=== PATIENT | male | born 1935 | race Caucasian/White ===

== ENCOUNTER 2020-04-07 12:07 | Inpatient (IN) ==
[2020-04-07] MEDS ORDERED: ACETAMINOPHEN 65 ML IV ONE (12:19)
--- NOTE | 2020-04-07 12:27 | Emergency Department Note ---
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 Prior to arrival the patient developed chest discomfort and had shortness of breath and diaphoresis. The patient states that he does not have chest pain. He did not receive anything in the ambulance according to EMS. EMS stated that he seemed agitated and uncooperative in the ambulance. History and physical exam is limited as the patient is not cooperative and seems confused. He does answer some questions but ignores others. [facility] Home Medications Home Medications Medication Instructions Recorded Confirmed Type amlodipine 5 mg PO DAILY 04/07/20 04/07/20 History atorvastatin 40 mg PO HS 04/07/20 04/07/20 History fluoxetine [Prozac] 10 mg PO DAILY 04/07/20 04/07/20 History fmzqtwiiind-zdjrqjhnw-kxifexze 1 inh INHALATION DAILY 04/07/20 04/07/20 History [Trelegy Ellipta] hydrochlorothiazide 12.5 mg PO DAILY 04/07/20 04/07/20 History ipratropium-albuterol [Combivent 1 puff INHALATION Q4H PRN 04/07/20 04/07/20 History Respimat] losartan 50 mg PO DAILY 04/07/20 04/07/20 History hn-va-VR-vit J-ossyx-ylpm-zeax 1 tab PO DAILY 04/07/20 04/07/20 History [Ocuvite Eye Plus Multi] pantoprazole 40 mg PO DAILY 04/07/20 04/07/20 History quetiapine [Seroquel] 12.5 mg PO TID 04/07/20 04/07/20 History warfarin 1.5 mg PO DAILY 04/07/20 04/07/20 History Allergies Allergy/AdvReac Type Severity Reaction Status Date / Time Iodinated Contrast Media Allergy Intermediate RASH Verified 04/07/20 12:44 Past Med/Surg History Medical History Atrial fibrillation COPD (chronic obstructive pulmonary disease) Current use of fdc anticoagulation CVA (cerebral vascular accident) History of sick sinus syndrome HLD (hyperlipidemia) HTN (hypertension) Macular degeneration Surgical History History of cardiac pacemaker History of hernia repair Hx of cataract extraction Family History Sister COPD (chronic obstructive pulmonary disease) Other Coronary heart disease Social History (Updated 04/07/20 @ 15:54 by Anna Marie Blanco PA-C) Smoking Status: Unknown if ever smoked Hx Alcohol Use: No Hx Substance Use: No Preferred Language: Kittitian Communication Ability: Impaired Communication Ability Comment: d/t stroke [employer] Required: No Beliefs That Will Affect Care: None marital status: Current Living Situation: Spouse and Rehab Current Living Situation Comment: pt came from [facility] Assistive Devices: None Review of Systems See HPI for pertinent positives & negatives. Unobtainable due to cognitive status Physical Exam Vital Signs Vital Signs - 24 hr 04/07/20 12:13 04/07/20 12:17 04/07/20 12:30 Temperature Temperature Source Pulse Rate 98 H 80 Pulse Rate from SpO2 Sensor 81 Respiratory Rate 20 22 22 Respiratory Effort / Characteristics Spontaneous Short of Breath Blood Pressure 156/76 H Blood Pressure Mean 94 Pulse Oximetry 96 100 Oxygen Delivery Method Room Air Nasal Cannula Oxygen Flow Rate 2 Sepsis Recent Fever Within 48 Hours Sepsis New/Unexplained Change in Mental Status Sepsis Action Taken by Nursing 04/07/20 12:37 04/07/20 12:45 04/07/20 12:47 Temperature 38 C H Temperature Source Rectal Pulse Rate 88 75 Pulse Rate from SpO2 Sensor 75 Respiratory Rate 20 24 22 Respiratory Effort / Characteristics Spontaneous Short of Breath Blood Pressure 156/76 H Blood Pressure Mean 102 Pulse Oximetry 96 100 100 Oxygen Delivery Method Room Air Nasal Cannula Nasal Cannula Oxygen Flow Rate 2 2 Sepsis Recent Fever Within 48 Hours Yes Sepsis New/Unexplained Change in Mental Status No Sepsis Action Taken by Nursing Physician Notified 04/07/20 12:58 04/07/20 13:01 04/07/20 13:54 Temperature Temperature Source Pulse Rate 80 78 81 Pulse Rate from SpO2 Sensor 81 78 83 Respiratory Rate 22 21 21 Respiratory Effort / Characteristics Blood Pressure 103/65 138/64 121/75 Blood Pressure Mean 66 91 80 Pulse Oximetry 99 99 96 Oxygen Delivery Method Nasal Cannula Nasal Cannula Nasal Cannula Oxygen Flow Rate 2 2 2 Sepsis Recent Fever Within 48 Hours Sepsis New/Unexplained Change in Mental Status Sepsis Action Taken by Nursing 04/07/20 14:00 04/07/20 14:01 04/07/20 14:15 Temperature 36.7 C Temperature Source Oral Pulse Rate 69 62 Pulse Rate from SpO2 Sensor 70 66 Respiratory Rate 23 18 Respiratory Effort / Characteristics Non-Labored Spontaneous Blood Pressure 135/72 Blood Pressure Mean 100 Pulse Oximetry 100 96 Oxygen Delivery Method Nasal Cannula Nasal Cannula Oxygen Flow Rate 2 2 Sepsis Recent Fever Within 48 Hours Sepsis New/Unexplained Change in Mental Status Sepsis Action Taken by Nursing 04/07/20 14:30 04/07/20 14:42 04/07/20 15:00 Temperature Temperature Source Pulse Rate 64 Pulse Rate from SpO2 Sensor 62 Respiratory Rate 23 Respiratory Effort / Characteristics Non-Labored Blood Pressure 124/69 127/65 Blood Pressure Mean 77 92 Pulse Oximetry 95 94 Oxygen Delivery Method Room Air Room Air Oxygen Flow Rate Sepsis Recent Fever Within 48 Hours Sepsis New/Unexplained Change in Mental Status Sepsis Action Taken by Nursing Constitutional: Vital signs reviewed. Eyes: Pupils are equal round reactive to light. Conjunctiva are noninjected. ENT: Pharynx is clear without erythema or exudate. Mucous membranes are moist. Neck supple without meningeal signs. Respiratory: Clear to auscultation bilaterally. Breath sounds are equal bilaterally. Cardiovascular: Regular rate and rhythm. No rubs or gallops. GI: Soft, nondistended and nontender. Bowel sounds are present. Musculoskeletal: No peripheral edema. No lower extremity tenderness. Integumentary: No cyanosis. or jaundice. Very warm to touch. Neurological: The patient is awake and alert. Answers some questions but ignores others. Moves all extremities. Psychiatric: Unable to assess. Course Administered Medications Discontinued Medications Acetaminophen (Ofirmev) 65 mls @ 200 mls/hr IV NOW ONE; Protocol Stop: 04/07/20 12:38 Last Infusion: 04/07/20 13:20 Dose: 0 mls/hr Documented by: [id number] Admin: 04/07/20 12:55 Dose: 200 mls/hr Documented by: [id number] Medical Decision Making Differential Diagnosis Sepsis, UTI, pneumonia, bacteremia, ICH, COVID-19, ACS Medical Records Attestation: I reviewed the patient's medical records. I did perform a limited focused review of portions of the patient's old chart on the electronic medical record. The patient has had no recent pertinent visits to this hospital. Home Medications Current Medication List: was personally reviewed by me Laboratory Data Attestation: I reviewed the patient's lab results. Result diagrams: 04/07/20 12:50 04/07/20 12:50 Lab Results 04/07/20 04/07/20 04/07/20 Range/Units 12:30 12:30 12:30 WBC (4.8-10.8) K/uL RBC (4.7-6.1) M/uL Hgb (14.0-18.0) g/dL Hct (42-52) % MCV (80-100) fL MCH (25-34) pg MCHC (32-36) g/dL RDW Std Deviation (36.4-46.3) fL RDW Coeff of Kylah (11.5-14.5) % Plt Count (130-400) K/uL MPV (7.4-10.4) fL Immature Gran % (Auto) % Neut % (Auto) % Lymph % (Auto) % [place] % (Auto) % Eos % (Auto) % Baso % (Auto) % Neut # (Auto) (1.4-6.5) K/uL Lymph # (Auto) (1.2-3.4) K/uL [place] # (Auto) (0.11-0.59) K/uL Eos # (Auto) (0-0.5) K/uL Baso # (Auto) (0-0.2) K/uL Immature Gran # (Auto) (0.00-0.02) K/uL PT (9.0-12.0) Seconds INR (0.9-1.1) APTT (21.0-31.0) Seconds PTT Ratio Sodium (136-145) mmol/L Potassium (3.5-5.1) mmol/L Chloride (98-107) mmol/L Carbon Dioxide (21-32) mmol/L Anion Gap (3-11) BUN (7-18) mg/dl Creatinine (0.6-1.4) mg/dl Est Cr Clr Drug Dosing Est GFR ( Amer) Est GFR (Non-Af Amer) BUN/Creatinine Ratio (10-20) Glucose (70-99) mg/dl Lactate (0.4-2.0) mmol/L Calcium (8.5-10.1) mg/dl Magnesium (1.8-2.4) mg/dl Total Bilirubin (0.2-1) mg/dl AST (15-37) U/L ALT (12-78) U/L Alkaline Phosphatase (45-117) U/L Troponin I (0-0.045) ng/ml Total Protein (6.4-8.2) gm/dl Albumin (3.4-5.0) gm/dl Globulin (2.5-4.0) gm/dl Albumin/Globulin Ratio (0.9-2) COVID-19 Eval Order Covid19 Done at [facility] COVID-19 PCR NEGATIVE (Negative) Influenza Type A (PCR) Neg for Influ A (Neg) Influenza Type B (PCR) Neg for Influ B (Neg) 04/07/20 04/07/20 04/07/20 Range/Units 12:50 12:50 12:50 WBC 13.97 H (4.8-10.8) K/uL RBC 4.08 L (4.7-6.1) M/uL Hgb 13.3 L (14.0-18.0) g/dL Hct 38.4 L (42-52) % MCV 94.1 (80-100) fL MCH 32.6 (25-34) pg MCHC 34.6 (32-36) g/dL RDW Std Deviation 44.7 (36.4-46.3) fL RDW Coeff of Kylah 12.9 (11.5-14.5) % Plt Count 239 (130-400) K/uL MPV 10.2 (7.4-10.4) fL Immature Gran % (Auto) 0.2 % Neut % (Auto) 91.6 % Lymph % (Auto) 3.0 % [place] % (Auto) 5.0 % Eos % (Auto) 0.1 % Baso % (Auto) 0.1 % Neut # (Auto) 12.79 H (1.4-6.5) K/uL Lymph # (Auto) 0.42 L (1.2-3.4) K/uL [place] # (Auto) 0.70 H (0.11-0.59) K/uL Eos # (Auto) 0.02 (0-0.5) K/uL Baso # (Auto) 0.01 (0-0.2) K/uL Immature Gran # (Auto) 0.03 H (0.00-0.02) K/uL PT 44.5 H (9.0-12.0) Seconds INR 4.6 H (0.9-1.1) APTT 39.9 H (21.0-31.0) Seconds PTT Ratio 1.4 Sodium 140 (136-145) mmol/L Potassium 3.5 (3.5-5.1) mmol/L Chloride 104 (98-107) mmol/L Carbon Dioxide 30 (21-32) mmol/L Anion Gap 6.0 (3-11) BUN 16 (7-18) mg/dl Creatinine 1.30 (0.6-1.4) mg/dl Est Cr Clr Drug Dosing Not Reportable Est GFR ( Amer) 58.1 Est GFR (Non-Af Amer) 50.1 BUN/Creatinine Ratio 12.1 (10-20) Glucose 114 H (70-99) mg/dl Lactate (0.4-2.0) mmol/L Calcium 9.0 (8.5-10.1) mg/dl Magnesium (1.8-2.4) mg/dl Total Bilirubin 1.9 H (0.2-1) mg/dl AST 515 H (15-37) U/L ALT 276 H (12-78) U/L Alkaline Phosphatase 207 H (45-117) U/L Troponin I 0.029 (0-0.045) ng/ml Total Protein 7.1 (6.4-8.2) gm/dl Albumin 3.6 (3.4-5.0) gm/dl Globulin 3.5 (2.5-4.0) gm/dl Albumin/Globulin Ratio 1.0 (0.9-2) COVID-19 Eval Order COVID-19 PCR (Negative) Influenza Type A (PCR) (Neg) Influenza Type B (PCR) (Neg) 04/07/20 04/07/20 Range/Units 12:50 12:50 WBC (4.8-10.8) K/uL RBC (4.7-6.1) M/uL Hgb (14.0-18.0) g/dL Hct (42-52) % MCV (80-100) fL MCH (25-34) pg MCHC (32-36) g/dL RDW Std Deviation (36.4-46.3) fL RDW Coeff of Kylah (11.5-14.5) % Plt Count (130-400) K/uL MPV (7.4-10.4) fL Immature Gran % (Auto) % Neut % (Auto) % Lymph % (Auto) % [place] % (Auto) % Eos % (Auto) % Baso % (Auto) % Neut # (Auto) (1.4-6.5) K/uL Lymph # (Auto) (1.2-3.4) K/uL [place] # (Auto) (0.11-0.59) K/uL Eos # (Auto) (0-0.5) K/uL Baso # (Auto) (0-0.2) K/uL Immature Gran # (Auto) (0.00-0.02) K/uL PT (9.0-12.0) Seconds INR (0.9-1.1) APTT (21.0-31.0) Seconds PTT Ratio Sodium (136-145) mmol/L Potassium (3.5-5.1) mmol/L Chloride (98-107) mmol/L Carbon Dioxide (21-32) mmol/L Anion Gap (3-11) BUN (7-18) mg/dl Creatinine (0.6-1.4) mg/dl Est Cr Clr Drug Dosing Est GFR ( Amer) Est GFR (Non-Af Amer) BUN/Creatinine Ratio (10-20) Glucose (70-99) mg/dl Lactate 1.7 (0.4-2.0) mmol/L Calcium (8.5-10.1) mg/dl Magnesium 1.9 (1.8-2.4) mg/dl Total Bilirubin (0.2-1) mg/dl AST (15-37) U/L ALT (12-78) U/L Alkaline Phosphatase (45-117) U/L Troponin I (0-0.045) ng/ml Total Protein (6.4-8.2) gm/dl Albumin (3.4-5.0) gm/dl Globulin (2.5-4.0) gm/dl Albumin/Globulin Ratio (0.9-2) COVID-19 Eval Order COVID-19 PCR (Negative) Influenza Type A (PCR) (Neg) Influenza Type B (PCR) (Neg) Imaging Data Radiologist's Impression: CT chest wo con CT DOSE: 1245.21 mGycm CLINICAL HISTORY: 84 years-old Male with fever AMS. Acute fever with altered mental status TECHNIQUE: Multiaxial CT images of the chest were performed without contrast. A dose lowering technique was utilized adhering to the principles of ALARA. COMPARISON: CT abdomen and pelvis of same day FINDINGS: Study is limited secondary to upper extremity positioning. Moderate cardiomegaly with left subclavian pacer. Extensive coronary artery calcifications. Fusiform dilation of the ascending thoracic aorta measures 4.0 x 4.0 cm. Moderate calcified plaque of the aorta. Heterogeneous thyroid with left thyroid lobe calcification. No adenopathy. No pneumothorax, pleural effusion, overt pulmonary edema. No airspace consolidation typical for pneumonia. Mild linear subsegmental consolidative opacities of the right middle lobe and lingula suggest atelectasis/scarring. 4 mm solid nodule of the right lower lobe, image 244 series 4. Central airways are patent. No acute process of the imaged upper abdomen. Degenerative changes of the spine and shoulders. No acute fracture or suspicious bone lesion. IMPRESSION: 1. Mildly motion degraded exam without acute intrathoracic abnormality. 2. Cardiomegaly without pulmonary edema. 3. 4 mm solid nodule of the right lower lobe. Please refer to below summary of Fleischner criteria recommendations for follow- up of incidental CT nodules ([place], Guidelines for management of small pulmonary nodules detected on CT scans: A statement from the Fleischner Society, Radiology 237: [phone].) SOLID NODULES Solitary nodule size: <6 mm * Low risk patients: no follow-up needed * high risk patients: optional CT at 12 months Note: newly detected indeterminate nodule in persons 35 years of age or older. * Low risk patients: minimal or absent history of smoking and/or other known risk factors * high risk patients: history of smoking or of other known risk factors (e.g. first degree relative with lung cancer, or exposure to asbestos, radon, uranium) * if a nodule up to 8 mm is partly solid or is ground glass further follow-up is required after 24 months to exclude possible slow growing adenocarcinoma (LUISA) ACT 112: Negative or not required by law. Electronically signed by: Christofer Mccarthy M.D. 04/07/2020 1:48 PM Dictated: 04/07/20 1341 Transcribed: 04/07/[address] OF THE ABDOMEN AND PELVIS WITHOUT CONTRAST CLINICAL HISTORY: Fever. Altered mental status. COMPARISON STUDY: No previous studies for comparison. TECHNIQUE: Axial images of the abdomen and pelvis were obtained without IV contrast. Images were reviewed in the axial, sagittal, and coronal planes. Automated exposure control was utilized for the study. A dose lowering technique was utilized adhering to the principles of ALARA. FINDINGS: Lung bases are unremarkable. This exam is mildly compromised by motion artifact. No pneumatosis, free air or portal venous gas is present. Moderate cardiomegaly is noted. Pacer lead is partially imaged. Unenhanced images of liver, spleen, adrenal glands and pancreas are unremarkable. There is no hyd ronephrosis. There is moderate right renal cortical thinning. Gallbladder is distended. No adjacent infiltration is noted. There is no biliary or pancreatic ductal dilatation. There is no evidence for a bowel obstruction. The appendix is normal. Note is made of colonic diverticulosis without evidence for acute diverticulitis. There is no fluid collection is suggest an abscess. No suspicious osseous lesions are noted. There is an old L4 compression fracture. There may be a cystic lesion within the posterior cortex of the midpole of the right kidney, suboptimally assessed on this exam. IMPRESSION: 1. Exam moderately compromised by motion artifact and lack of contrast. 2. Distended gallbladder without pericholecystic infiltration. If suspicion for acute cholecystitis, a a right upper quadrant ultrasound could be obtained. 3. No bowel obstruction. 4. Colonic diverticulosis without evidence for acute diverticulitis. ACT 112: Negative or not required by law. Electronically signed by: Andre Joseph M.D. 04/07/2020 2:08 PM Dictated: 04/07/20 1356 Transcribed: 04/07/[address] DOSE: 1683.20 mGycm HISTORY: Altered mental status. TECHNIQUE: Multiaxial CT images of the head were performed without the use of intravenous contrast. Automated exposure control was utilized for this study. A dose lowering technique was utilized adhering to the principles of ALARA. Comparison: None. Findings: The paranasal sinuses and mastoid air cells are clear. The calvarium and skull base are intact. There is no mass, hematoma, midline shift, acute infarct. White matter hypodensity is nonspecific but suggestive of microvascular ischemic change. The ventricles and sulci demonstrate mild age-related involutional changes. Old small left occipital lobe infarct. There is an old punctate lacunar infarcts seen within the right basal ganglia. Mild motion artifact. Impression: Mild motion artifact. No definite acute intracranial abnormality. ACT 112: Negative or not required by law. Electronically signed by: Adalberto Wolf M.D. 04/07/2020 1:40 PM Dictated: 04/07/20 133 Transcribed: 04/07/20 133 ECG Data Attestation: I personally reviewed and interpreted this ECG as follows: Indication: + chest pain Rate (beats per minute): 84 Rhythm: + atrial fibrillation (Occasional pacer spikes) ECG Intervals/blocks: + IVCD (Occasional pacer spikes) ECG ST segments: + ST elevation (Lateral/inferior) and + T-wave inversions (Inferior) ECG Findings: + PVCs Comparison ECG Date: no prior available ([facility]) Additional Comments: Repeat twelve-lead EKG performed at 1253 interpreted by myself shows atrial fibrillation at a rate of 74 bpm. He has left axis deviation and persistent ST depressions laterally although they are not as pronounced as they were on the previous EKG. He also has continued ST depressions and T wave inversions inferiorly. Blood Pressure Blood Pressure Findings: Elevated blood pressure Blood Pressure Disposition: further management by hospitalist MDM Narrative I did evaluate the patient as noted above. I did obtain history from EMS as well as the patient. Patient's history seems unreliable as he seems very confused. The patient felt very warm to touch and so I did order a rectal temperature which was 38. I did obtain further history from [facility] She states the patient has global aphasia and so cannot understand what people are saying to him. She states that he never said that he had chest pain. He was clutching at his chest and his left arm and said help. She states there are no reported cases of COVID-19 at [facility]. I later spoke to Dr. Draper who came to the ED. She stated that the patient said yes when asked if he had chest pain earlier. IV access was established. I did place an order for continuous cardiac monitoring. The monitor showed atrial fibrillation with a rate of 82. I did order and personally review the patient's 12-lead EKG as described above. He has A. fib with T wave inversions inferiorly as well as ST depressions laterally. No old EKGs available for comparison other than [facility] which shows similar findings. The patient was placed in respiratory isolation. COVID-19 and influenza testing was obtained. Blood cultures were ordered. I did treat him with IV Tylenol. I did order a urine analysis. He would not allow us to catheterize him and he has not been able to give us a sample. I did order and review the patient's blood work as noted in the electronic medical record. His white blood cell count is elevated. Troponin is negative. Electrolytes are unremarkable. LFTs are abnormal. INR is supratherapeutic at 4.6. I did order a CT of the head, chest, abdomen pelvis. I did review the images myself as well as the radiology report as described above. There is no intracranial hemorrhage. He does have a distended gallbladder but otherwise no intrathoracic or abdominal process. I did repeat a twelve-lead EKG which per my interpretation shows similar finding as his previous EKG. Through the [employer] system the behavioral health case manager was able to get an old EKG but this showed a paced rhythm and so comparison was not helpful. The patient's COVID and influenza testing were negative and he was taken off of isolation. I did order an ultrasound of the gallbladder but the patient refused to have it. I spoke to his daughter over the telephone and discussed his plan of care with her. She stated that the patient refuses any surgery and so if he had a problem with his gallbladder he would not allow surgery anyway. She also noted that he is DNR. I did discuss the case with the hospitalist and behavioral health case manager. They will start him on antibiotics once they get his urine. Impression & Plan Acute chest pain, Supratherapeutic INR, Abnormal ECG, Fever, Abnormal LFTs Discharge Plan Visit Data Chief Complaint: Fever Stated Complaint: Chest pain/ Afib ED Provider: Bryan Gavin Discharge Problem: Acute chest pain, Supratherapeutic INR, Abnormal ECG, Fever, Abnormal LFTs Patient Disposition: Admitted As Inpatient Discharge Instructions Interventions: ED Discharge Assessment Last Done: 04/07/20 16:20
[2020-04-07 13:13] LABS: Basophils # (auto) 0.01 K/uL (0-0.2); Basophils % (auto) 0.1 %; Eosinophils # (auto) 0.02 K/uL (0-0.5); Eosinophils % (auto) 0.1 %; Hematocrit (blood only) 38.4 % (42-52); Hemoglobin 13.3 g/dL (14.0-18.0); Immature Granulocytes # (auto) 0.03 K/uL (0.00-0.02); Immature Granulocytes % (auto) 0.2 %; Lymphocytes # (auto) 0.42 K/uL (1.2-3.4); Mean Corpuscular Hemoglobin 32.6 pg (25-34); Mean Corpuscular Hgb Conc 34.6 g/dL (32-36); Mean Corpuscular Volume 94.1 fL (80-100); Mean Platelet Volume 10.2 fL (7.4-10.4); Neutrophils # (auto) 12.79 K/uL (1.4-6.5); Neutrophils % (auto) 91.6 %; Platelet Count 239 K/uL (130-400); RDW Coefficient of Variation 12.9 % (11.5-14.5); RDW Standard Deviation 44.7 fL (36.4-46.3); Red Blood Count 4.08 M/uL (4.7-6.1); White Blood Count 13.97 K/uL (4.8-10.8)
[2020-04-07 13:31] LABS: Alanine Aminotransferase 276 U/L (12-78); Albumin Level 3.6 gm/dl (3.4-5.0); Aspartate Aminotransferase 515 U/L (15-37); BUN Creatinine Ratio 12.1 (10-20); Blood Urea Nitrogen 16 mg/dl (7-18); Carbon Dioxide 30 mmol/L (21-32); Chloride 104 mmol/L (98-107); Est GFR (African American) 58.1; Est GFR (Non-African American) 50.1; Glucose 114 mg/dl (70-99); INR 4.6 (0.9-1.1); Partial Thromboplastin Ratio 1.4; Partial Thromboplastin Time 39.9 Seconds (21.0-31.0); Potassium 3.5 mmol/L (3.5-5.1); Prothrombin Time 44.5 Seconds (9.0-12.0); Sodium 140 mmol/L (136-145)
[2020-04-07 13:35] LABS: Alkaline Phosphatase 207 U/L (45-117); Bilirubin,Total 1.9 mg/dl (0.2-1); Globulin 3.5 gm/dl (2.5-4.0); Total Protein 7.1 gm/dl (6.4-8.2); Troponin I 0.029 ng/ml (0-0.045)
--- NOTE | 2020-04-07 13:42 | CT Scan Report ---
HEAD CT NONCONTRAST CT DOSE: 1683.20 mGycm HISTORY: Altered mental status. TECHNIQUE: Multiaxial CT images of the head were performed without the use of intravenous contrast. A utomated exposure control was utilized for this study. A dose lowering technique was utilized adheri ng to the principles of ALARA. Comparison: None. Findings: The paranasal sinuses and mastoid air cells are clear. The calvarium and skull base are int act. There is no mass, hematoma, midline shift, acute infarct. White matter hypodensity is nonspecifi c but suggestive of microvascular ischemic change. The ventricles and sulci demonstrate mild age-rela rich involutional changes. Old small left occipital lobe infarct. There is an old punctate lacunar inf arcts seen within the right basal ganglia. Mild motion artifact. Impression: Mild motion artifact. No definite acute intracranial abnormality. ACT 112: Negative or not required by law. Electronically signed by: Adalberto Wolf M.D. 04/07/2020 1:40 PM
--- NOTE | 2020-04-07 13:49 | CT Scan Report ---
CT chest wo con CT DOSE: 1245.21 mGycm CLINICAL HISTORY: 84 years-old Male with fever AMS. Acute fever with altered mental status TECHNIQUE: Multiaxial CT images of the chest were performed without contrast. A dose lowering techni que was utilized adhering to the principles of ALARA. COMPARISON: CT abdomen and pelvis of same day FINDINGS: Study is limited secondary to upper extremity positioning. Moderate cardiomegaly with left subclavian pacer. Extensive coronary artery calcifications. Fusiform dilation of the ascending thoracic aorta measures 4.0 x 4.0 cm. Moderate calcified plaque of the aort a. Heterogeneous thyroid with left thyroid lobe calcification. No adenopathy. No pneumothorax, pleura l effusion, overt pulmonary edema. No airspace consolidation typical for pneumonia. Mild linear subse gmental consolidative opacities of the right middle lobe and lingula suggest atelectasis/scarring. 4 mm solid nodule of the right lower lobe, image 244 series 4. Central airways are patent. No acute process of the imaged upper abdomen. Degenerative changes of the spine and shoulders. No acu te fracture or suspicious bone lesion. IMPRESSION: 1. Mildly motion degraded exam without acute intrathoracic abnormality. 2. Cardiomegaly without pulmonary edema. 3. 4 mm solid nodule of the right lower lobe. Please refer to below summary of Fleischner criteria recommendations for follow-up of incidental CT n odules ([place], Guidelines for management of small pulmonary nodules detected on CT scans: A sta tement from the Fleischner Society, Radiology 237: [id number].) SOLID NODULES Solitary nodule size: <6 mm * Low risk patients: no follow-up needed * high risk patients: optional CT at 12 months Note: newly detected indeterminate nodule in persons 35 years of age or older. * Low risk patients: minimal or absent history of smoking and/or other known risk factors * high risk patients: history of smoking or of other known risk factors (e.g. first degree relative with lung cancer, or exposure to asbestos, radon, uranium) * if a nodule up to 8 mm is partly solid or is ground glass further follow-up is required after 24 m onths to exclude possible slow growing adenocarcinoma (LUISA) ACT 112: Negative or not required by law. Electronically signed by: Christofer Mccarthy M.D. 04/07/2020 1:48 PM
[2020-04-07 13:50] LABS: Influenza A virus by PCR Neg for Influ A (Neg); Influenza B virus by PCR Neg for Influ B (Neg)
--- NOTE | 2020-04-07 14:09 | CT Scan Report ---
CT OF THE ABDOMEN AND PELVIS WITHOUT CONTRAST CLINICAL HISTORY: Fever. Altered mental status. COMPARISON STUDY: No previous studies for comparison. TECHNIQUE: Axial images of the abdomen and pelvis were obtained without IV contrast. Images were revi ewed in the axial, sagittal, and coronal planes. Automated exposure control was utilized for the alexandr dy. A dose lowering technique was utilized adhering to the principles of ALARA. FINDINGS: Lung bases are unremarkable. This exam is mildly compromised by motion artifact. No pneumat osis, free air or portal venous gas is present. Moderate cardiomegaly is noted. Pacer lead is partial ly imaged. Unenhanced images of liver, spleen, adrenal glands and pancreas are unremarkable. There is no hydronephrosis. There is moderate right renal cortical thinning. Gallbladder is distended. No adj acent infiltration is noted. There is no biliary or pancreatic ductal dilatation. There is no evidenc e for a bowel obstruction. The appendix is normal. Note is made of colonic diverticulosis without brandie dence for acute diverticulitis. There is no fluid collection is suggest an abscess. No suspicious oss eous lesions are noted. There is an old L4 compression fracture. There may be a cystic lesion within the posterior cortex of the midpole of the right kidney, suboptimally assessed on this exam. IMPRESSION: 1. Exam moderately compromised by motion artifact and lack of contrast. 2. Distended gallbladder without pericholecystic infiltration. If suspicion for acute cholecystitis, a a right upper quadrant ultrasound could be obtained. 3. No bowel obstruction. 4. Colonic diverticulosis without evidence for acute diverticulitis. ACT 112: Negative or not required by law. Electronically signed by: Andre Joseph M.D. 04/07/2020 2:08 PM
--- NOTE | 2020-04-07 15:47 | History & Physical Report ---
Date of Service April 07, 2020 Assessment & Plan (1) Chest pain: This is an 84-year-old male who has significant past medical history of chronic atrial fibrillation anticoagulated on warfarin, HTN, HLD, sick sinus syndrome status post pacer, COPD, severe aortic stenosis, history of CVA 1998 and a recent suffered a acute left parietal and occipital CVA on 03/29/2020 with resultant expressive and receptive aphasia. He presented to ED secondary to acute onset chest pain, shortness of breath and diaphoresis that occurred at 11 AM. In ED initial cardiac work-up revealed negative troponin, EKG with ST and T wave depressions in leads V6 and III which appear unchanged to prior EKG on 03/29. Patient did have leukocytosis, elevated LFTs and a CT abdomen pelvis concerning for acute cholecystitis. He was febrile by rectal temp at 38 Celsius. Admit to telemetry Cardiac work-up to rule out ACS Cycle troponins x2, repeat EKG His INR is currently supra therapeutic, will hold Coumadin Last echocardiogram 03/30 which revealed EF 65%, severe aortic stenosis, moderate mitral regurg, severe right atrial enlargement, left atrial enlargement Consult general surgery due to elevated LFTs with concern for cholecystitis on imaging. I spoke with daughter extensively who states patient does not want to go any further surgical intervention and would like limited intervention as possible. Start empiric antibiotic with IV Zosyn Obtain right upper quadrant ultrasound -patient initially refused, will reattempt when on floor Gentle IVF 75 cc/h -patient with severe clear liquid diet for now until seen by surg npo after midnight (2) Elevated LFTs: hold statin obstructive pattern, likely in setting of acute libby vs choledocholithiasis tx as above (3) Acute renal insufficiency: Baseline creatinine 1.1 BUN/creatinine 16 and 1.30 today, estimated GFR 50.1 Gentle IV hydration 75 cc/h -caution in setting of aortic stenosis (4) Supratherapeutic INR: hold warfarin INR in a.m. no s/sx of bleeding (5) CVA (cerebral vascular accident): Patient with CVA in the 90s and of most recent suffered a left parietal and occipital CVA 03/29/2020 with resultant expressive and receptive aphasia He is on warfarin and high intensity statin therapy Hold statin in setting of elevated LFTs Hold warfarin due to supratherapeutic INR Consult speech therapy -Per encompass patient on regular diet (6) Atrial fibrillation: Rate controlled with pacemaker INR supratherapeutic hold warfarin Repeat INR in a.m. (7) Cardiac pacemaker in situ: Sick sinus syndrome status post pacemaker Pacemaker interrogation ordered (8) HTN (hypertension): Blood pressure stable Continue amlodipine and losartan Hold HCTZ due to mild elevation of renal function (9) COPD (chronic obstructive pulmonary disease): No acute exacerbation Continue Trelegy (10) Lung nodule < 6cm on CT: 4mm solid nodule RLL Solitary nodule size: <6 mm * Low risk patients: no follow-up needed * high risk patients: optional CT at 12 months defer to PCP for further imaging if needed (11) DVT prophylaxis: Warfarin, hold in setting of supratherapeutic INR INR in a.m. Disposition: Admit to telemetry, likely transition back to [facility] rehab when stable Follow-up: PCP Dr. Genao, upon discharge Patient was seen and examined in collaboration with Dr. Marcos, please see addendum History of Present Illness Chief Complaint: Chest pain CONSULTING ANALYST. 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 He presents to our ED from acute rehab secondary to chest pain, shortness of breath and diaphoresis. History limited from patient secondary to a aphasia. Most history obtained from [facility] and a daughter. Patient was in therapy this morning around 11 AM when he became diaphoretic, was complaining of chest discomfort, and put a fist up to his chest. Staff became alarmed and they placed him on oxygen. They did do an EKG and alerted EMS. When he got ED he was hemodynamically stable. Initial work-up revealed negative troponin, EKG reading atrial fibrillation with heart rate in the 70s with ST depression and T wave inversions in leads III and V6. His Coumadin influenza was negative. He did have leukocytosis of 13.97k, elevated INR 4.6 and elevated LFTs with total bili 1.9, AST 515, ALT 276 and alk phos 207. Due to aphasia and poor historian patient underwent multiple CT s cans. CT abdomen pelvis revealed distention of gallbladder with no pericholecystic fluid but concerning for cholecystitis. Head CT revealed no acute abnormality. Poor prior strokes were noted. Chest CT revealed cardiomegaly without pulmonary edema and a 4 mm solid nodule of the right lower lobe. Patient is recommended for admission for ACS work-up as well as concern for cholecystitis. Allergies Allergy/AdvReac Type Severity Reaction Status Date / Time Iodinated Contrast Media Allergy Intermediate RASH Verified 04/07/20 12:44 Home Medications Home Medications Medication Instructions Recorded Confirmed Type amlodipine 5 mg PO DAILY 04/07/20 04/07/20 History atorvastatin 40 mg PO HS 04/07/20 04/07/20 History fluoxetine [Prozac] 10 mg PO DAILY 04/07/20 04/07/20 History byysztjtwjt-gbwxddhxw-gwjhkzmw 1 inh INHALATION DAILY 04/07/20 04/07/20 History [Trelegy Ellipta] hydrochlorothiazide 12.5 mg PO DAILY 04/07/20 04/07/20 History ipratropium-albuterol [Combivent 1 puff INHALATION Q4H PRN 04/07/20 04/07/20 History Respimat] losartan 50 mg PO DAILY 04/07/20 04/07/20 History il-yr-SU-vit K-dcusy-wutj-zeax 1 tab PO DAILY 04/07/20 04/07/20 History [Ocuvite Eye Plus Multi] pantoprazole 40 mg PO DAILY 04/07/20 04/07/20 History quetiapine [Seroquel] 12.5 mg PO TID 04/07/20 04/07/20 History warfarin 1.5 mg PO DAILY 04/07/20 04/07/20 History Past Med/Surg History Medical History Atrial fibrillation COPD (chronic obstructive pulmonary disease) Current use of lobsterman anticoagulation CVA (cerebral vascular accident) History of sick sinus syndrome HLD (hyperlipidemia) HTN (hypertension) Macular degeneration Surgical History History of cardiac pacemaker History of hernia repair Hx of cataract extraction Family History Sister COPD (chronic obstructive pulmonary disease) Other Coronary heart disease Social History (Updated 04/07/20 @ 15:54 by Anna Marie Blanco PA-C) Smoking Status: Unknown if ever smoked Hx Alcohol Use: No Hx Substance Use: No Preferred Language: Nepalese Communication Ability: Impaired Communication Ability Comment: d/t stroke [employer] Required: No Beliefs That Will Affect Care: None marital status: Current Living Situation: Spouse and Rehab Current Living Situation Comment: pt came from [facility] Assistive Devices: None Review of Systems Review of Systems: Unobtainable due to cognitive status Physical Exam Physical Exam: Constitutional: Elderly, male, lying in bed, alert with expre ssive and receptive aphasia, WD/WN, vitals as above, NAD, Head: Normocephalic, Atraumatic Eyes: PERRL, conjunctivae normal, anicteric sclerae ENMT: external ear and nose normal, oropharynx normal Neck: trachea midline, no thyromegaly normal visual inspection Respiratory: normal respiratory effort, lungs clear to auscultation, no wheeze, rales, rhonchi. Normal insp/exp effort, no accessory muscle use Cardiovascular: Regular rate, irregular rhythm, 2/6 NIGEL noted RUSB, no murmur, no edema Vessels: no JVD or carotid bruit Chest: normal inspection of chest, no pain to palpation Abdomen: normal bowel sounds, soft, nontender, no hepatosplenomegaly Musculoskeletal: no cyanosis or clubbing, extremities motor strength 5/5 Skin: no rashes, warm and dry normal turgor Neurologic: + Expressive and receptive aphasia, CN's II-XI intact bilaterally and moves all extremities Psychiatric: Alert to self only, euthymic affect Lymphatic: no cervical or axillary lymphadenopathy : deferred Results & Data Results & Data ([facility]) Vital Signs (Past 12 Hours) Vital Signs Temp Pulse Resp BP Pulse Ox 04/07/20 15:00 64 23 127/65 94 04/07/20 14:42 95 04/07/20 14:30 124/69 04/07/20 14:15 62 18 96 04/07/20 14:01 36.7 C 04/07/20 14:00 69 23 135/72 100 04/07/20 13:54 81 21 121/75 96 04/07/20 13:01 78 21 138/64 99 04/07/20 12:58 80 22 103/65 99 04/07/20 12:47 22 100 04/07/20 12:45 75 24 100 04/07/20 12:37 38 C H 88 20 156/76 H 96 04/07/20 12:30 80 22 100 04/07/20 12:17 22 04/07/20 12:13 98 H 20 156/76 H 96 Laboratory Results Short CBC 04/07/20 04/07/20 Range/Units 12:50 12:50 WBC 13.97 H (4.8-10.8) K/uL Hgb 13.3 L (14.0-18.0) g/dL Hct 38.4 L (42-52) % Plt Count 239 (130-400) K/uL Troponin I 0.029 (0-0.045) ng/ml BMP 04/07/20 12:50 Sodium 140 Potassium 3.5 Chloride 104 Carbon Dioxide 30 BUN 16 Creatinine 1.30 Glucose 114 H Calcium 9.0 Cardiac Enzymes 04/07/20 Range/Units 12:50 Troponin I 0.029 (0-0.045) ng/ml Liver Function 04/07/20 Range/Units 12:50 Total Bilirubin 1.9 H (0.2-1) mg/dl AST 515 H (15-37) U/L ALT 276 H (12-78) U/L Alkaline Phosphatase 207 H (45-117) U/L Albumin 3.6 (3.4-5.0) gm/dl Diagnostic Findings Chest CT: IMPRESSION: 1. Mildly motion degraded exam without acute intrathoracic abnormality. 2. Cardiomegaly without pulmonary edema. 3. 4 mm solid nodule of the right lower lobe. Abd/Pelvis CT: IMPRESSION: 1. Exam moderately compromised by motion artifact and lack of contrast. 2. Distended gallbladder without pericholecystic infiltration. If suspicion for acute cholecystitis, a a right upper quadrant ultrasound could be obtained. 3. No bowel obstruction. 4. Colonic diverticulosis without evidence for acute diverticulitis. Head CT: Impression: Mild motion artifact. No definite acute intracranial abnormality. Medications Administered Discontinued Medications Acetaminophen (Ofirmev) 65 mls @ 200 mls/hr IV NOW ONE; Protocol Stop: 04/07/20 12:38 Last Infusion: 04/07/20 13:20 Dose: 0 mls/hr Documented by: [id number] Admin: 04/07/20 12:55 Dose: 200 mls/hr Documented by: [id number] ECG Rate (beats per minute): 74 Rhythm: atrial fibrillation Findings: + nonspecific-ST abn Code Status & VTE Plan Code Status DNR/DNI pt wants limited intervention done VTE Prophylaxis Plan VTE Prophylaxis will be ordered: No Supervising Physician Co-Signing Physician Notes Patient is an 84-year-old male with multiple comorbidities presents with history of chest pain, shortness of breath and diaphoresis. Patient is a very poor historian. Currently refuses any medical treatment. Currently denies any chest pain, shortness of breath, abd pain during my encounter. Please review HPI for complete details of presentation. He was noted to be febrile, had leukocytosis 13.9 K, INR elevated at 4.6. Transaminitis noted. CT abdomen is concerning for acute cholecystitis. Initial troponin is negative. EKG showed atrial fibrillation with ST-T wave changes. On exam patient is elderly, no apparent distress, normocephalic atraumatic, mostly aphasic, lungs are clear to auscultation, irregularly irregular rhythm,+ systolic murmur, no pedal edema, abdomen soft, no guarding or rigidity, denies tenderness, alert, awake, difficult to perform complete neurological exam, grossly moves all extremities. Patient is admitted for management of chest pain rule out ACS, possible acute cholecystitis, coagulopathy secondary to Coumadin. Patient refused ultrasound. Empirically started on IV fluids, IV antibiotics but currently patient refusing care. Consulted surgery for input. Will hold Coumadin as INR supratherapeutic. Monitor LFTs. Pacemaker interrogation requested. Urine analysis is currently pending. Will consult palliative care to address goals of care. I personally reviewed the record. Patient is interviewed and examined at bedside. Patient's care is coordinated with Anna Marie Blanco PA-C. Please refer to the documentation above for details of patient's presentation and for discussion of other issues.
[2020-04-07] MEDS ORDERED: ALUMINUM/MAGNESIUM SUSP 30 ML UDC PO PRN (16:35)
[2020-04-07] MEDS ORDERED: IPRATROPIUM BROMIDE/ALBUTEROL respimat INH INH PRN (16:35)
[2020-04-07] MEDS ORDERED: MoRPHine SULFATE 2 MG/ML CARP IV PRN (16:35)
[2020-04-07] MEDS ORDERED: ACETAMINOPHEN 325 MG TAB PO PRN (16:35)
[2020-04-07] MEDS ORDERED: ONDANSETRON INJ 2 MG/ML 2 ML VIAL IV PRN (16:35)
[2020-04-07] MEDS ORDERED: POLYETHYLENE (MIRALAX) 17 GM PACK PO PRN (16:35)
[2020-04-07] MEDS ORDERED: PIPERACILL/TAZOBAC CONSULT ACTIVE PRN (16:35)
[2020-04-07] MEDS ORDERED: MAGNESIUM HYDROXIDE SUSP 30 ML UDC PO PRN (16:35)
[2020-04-07] MEDS ORDERED: SODIUM CHLORIDE 0.9% 1000ML 1,000 ML IV SCH (17:15)
[2020-04-07] MEDS ORDERED: PIPERACILLIN/TAZOBACTAM 3.375 GM in DEXTROSE 5% 100 ML IV ONE (17:30)
[2020-04-07] MEDS ORDERED: Ipratropium HFA Inhaler (Combivent Respimat P&T Subs) INH PRN (19:20)
[2020-04-07] MEDS ORDERED: Albuterol HFA 8 GM Inhaler (Combivent Respimat P&T Subs) INH PRN (19:20)
--- NOTE | 2020-04-07 20:37 | Surgery Consultation ---
Date of Consultation April 07, 2020 Assessment & Plan (1) Acute chest pain: (2) Abnormal LFTs: pt is a 84 year-old male who was admitted to hospital for acute chest pain, with elevate LFT, IMP: Cholecystitis, CBD stone?, cholangitis? Plan, recommend to do U/S study on gallbladder to R/O gallstone, IV antibiotic, repeat labs in am, will F/U,consult GI . Present on Admission?: Yes Supervising Physician Co-Signing Physician Notes Patient is an 84-year-old male with multiple comorbidities presents with history of chest pain, shortness of breath and diaphoresis. Patient is a very poor historian. Currently refuses any medical treatment. Currently denies any chest pain, shortness of breath, abd pain during my encounter. Please review HPI for complete details of presentation. He was noted to be febrile, had leukocytosis 13.9 K, INR elevated at 4.6. Transaminitis noted. CT abdomen is concerning for acute cholecystitis. Initial troponin is negative. EKG showed atrial fibrillation with ST-T wave changes. On exam patient is elderly, no apparent distress, normocephalic atraumatic, mostly aphasic, lungs are clear to auscultation, irregularly irregular rhythm,+ systolic murmur, no pedal edema, abdomen soft, no guarding or rigidity, denies tenderness, alert, awake, difficult to perform complete neurological exam, grossly moves all extremities. Patient is admitted for management of chest pain rule out ACS, possible acute cholecystitis, coagulopathy secondary to Coumadin. Patient refused ultrasound. Empirically started on IV fluids, IV antibiotics but currently patient refusing care. Consulted surgery for input. Will hold Coumadin as INR supratherapeutic. Monitor LFTs. Pacemaker interrogation requested. Urine analysis is currently pending. Will consult palliative care to address goals of care. I personally reviewed the record. Patient is interviewed and examined at bedside. Patient's care is coordinated with Anna Marie Blanco PA-C. Please refer to the documentation above for details of patient's presentation and for discussion of other issues. History of Present Illness Attending Physician: Richard Marcos MD Chief Complaint: Chest pain DRESS DESIGNER. 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 He presents to our ED from acute rehab secondary to chest pain, shortness of breath and diaphoresis. History limited from patient secondary to a aphasia. Most history obtained from [facility] and a daughter. Patient was in therapy this morning around 11 AM when he became diaphoretic, was complaining of chest discomfort, and put a fist up to his chest. Staff became alarmed and they placed him on oxygen. They did do an EKG and alerted EMS. When he got ED he was hemodynamically stable. Initial work-up revealed negative troponin, EKG reading atrial fibrillation with heart rate in the 70s with ST depression and T wave inversions in leads III and V6. His Coumadin influenza was negative. He did have leukocytosis of 13.97k, elevated INR 4.6 and elevated LFTs with total bili 1.9, AST 515, ALT 276 and alk phos 207. Due to aphasia and poor historian patient underwent multiple CT scans. CT abdomen pelvis revealed distention of gallbladder with no pericholecystic fluid but concerning for cholecystitis. Head CT revealed no acute abnormality. Poor prior strokes were noted. Chest CT revealed cardiomegaly without pulmonary edema and a 4 mm solid nodule of the right lower lobe. Patient is recommended for admission for ACS work-up as well as concern for cholecystitis. I ( Erna Paniagua MD ) got a call for consult cholecystitis, I reviewed pt;s H/P, Lab and CT scan with pt, pt has no abdominal pain now. Allergies Allergy/AdvReac Type Severity Reaction Status Date / Time Iodinated Contrast Media Allergy Intermediate RASH Verified 04/07/20 12:44 Home Medications Home Medications Medication Instructions Recorded Confirmed Type amlodipine 5 mg PO DAILY 04/07/20 04/07/20 History atorvastatin 40 mg PO HS 04/07/20 04/07/20 History fluoxetine [Prozac] 10 mg PO DAILY 04/07/20 04/07/20 History nmendoyqybr-rhlusniwf-juwtlwrn 1 inh INHALATION DAILY 04/07/20 04/07/20 History [Trelegy Ellipta] hydrochlorothiazide 12.5 mg PO DAILY 04/07/20 04/07/20 History ipratropium-albuterol [Combivent 1 puff INHALATION Q4H PRN 04/07/20 04/07/20 History Respimat] losartan 50 mg PO DAILY 04/07/20 04/07/20 History bf-up-AR-vit E-zpzvb-gdga-zeax 1 tab PO DAILY 04/07/20 04/07/20 History [Ocuvite Eye Plus Multi] pantoprazole 40 mg PO DAILY 04/07/20 04/07/20 History quetiapine [Seroquel] 12.5 mg PO TID 04/07/20 04/07/20 History warfarin 1.5 mg PO DAILY 04/07/20 04/07/20 History Past Med/Surg History Medical History Atrial fibrillation COPD (chronic obstructive pulmonary disease) Current use of skilled nursing anticoagulation CVA (cerebral vascular accident) History of sick sinus syndrome HLD (hyperlipidemia) HTN (hypertension) Macular degeneration Surgical History History of cardiac pacemaker History of hernia repair Hx of cataract extraction Family History Sister COPD (chronic obstructive pulmonary disease) Other Coronary heart disease Social History (Updated 04/07/20 @ 15:54 by Anna Marie Blanco PA-C) Smoking Status: Unknown if ever smoked Hx Alcohol Use: No Hx Substance Use: No Preferred Language: Swazi Communication Ability: Impaired Communication Ability Comment: d/t stroke Aircraft Shipping Checker Required: No Beliefs That Will Affect Care: None marital status: Current Living Situation: Spouse and Rehab Current Living Situation Comment: pt came from [facility] Assistive Devices: None Review of Systems Review of Systems: Unobtainable due to cognitive status Allergies Allergy/AdvReac Type Severity Reaction Status Date / Time Iodinated Contrast Media Allergy Intermediate RASH Verified 04/07/20 12:44 Home Medications Home Medications Medication Instructions Recorded Confirmed Type amlodipine 5 mg PO DAILY 04/07/20 04/07/20 History atorvastatin 40 mg PO HS 04/07/20 04/07/20 History fluoxetine [Prozac] 10 mg PO DAILY 04/07/20 04/07/20 History kxgncbyyofb-lnnfclqoz-cusflvqv 1 inh INHALATION DAILY 04/07/20 04/07/20 History [Trelegy Ellipta] hydrochlorothiazide 12.5 mg PO DAILY 04/07/20 04/07/20 History ipratropium-albuterol [Combivent 1 puff INHALATION Q4H PRN 04/07/20 04/07/20 History Respimat] losartan 50 mg PO DAILY 04/07/20 04/07/20 History wm-yr-EN-vit L-mvvqd-hizb-zeax 1 tab PO DAILY 04/07/20 04/07/20 History [Ocuvite Eye Plus Multi] pantoprazole 40 mg PO DAILY 04/07/20 04/07/20 History quetiapine [Seroquel] 12.5 mg PO TID 04/07/20 04/07/20 History warfarin 1.5 mg PO DAILY 04/07/20 04/07/20 History Patient History Medical History Atrial fibrillation COPD (chronic obstructive pulmonary disease) Current use of skilled nursing anticoagulation CVA (cerebral vascular accident) History of sick sinus syndrome HLD (hyperlipidemia) HTN (hypertension) Macular degeneration Surgical History History of cardiac pacemaker History of hernia repair Hx of cataract extraction Family History Sister COPD (chronic obstructive pulmonary disease) Other Coronary heart disease Social History (Updated 04/07/20 @ 15:54 by Anna Marie Blanco PA-C) Smoking Status: Unknown if ever smoked Hx Alcohol Use: No Hx Substance Use: No Preferred Language: Swazi Communication Ability: Impaired Communication Ability Comment: d/t stroke Aircraft Shipping Checker Required: No Beliefs That Will Affect Care: None marital status: Current Living Situation: Spouse and Rehab Current Living Situation Comment: pt came from [facility] Assistive Devices: None Review of Systems Constitutional: as per Subjective / HPI Eyes: as per Subjective / HPI Ear, Nose, Mouth, Throat: as per Subjective / HPI Respiratory: as per Subjective / HPI COPD Cardiovascular: as per Subjective / HPI Additional Comments: A-Fib, , chest pain, HTN, pacemaker Gastrointestinal: as per Subjective / HPI Genitourinary: + as per Subjective / HPI Musculoskeletal: as per Subjective / HPI Integumentary: as per Subjective / HPI Neurologic: as per Subjective / HPI CVA 03/2020 Psychiatric: as per Subjective / HPI Endocrine: as per Subjective / HPI Hematologic / Lymphatic: as per Subjective / HPI Allergy / Immunological: as per Subjective / HPI Physical Exam Constitutional: WD/WN, vitals as above well developed and well nourished Eyes: PERRL, conjunctivae normal, anicteric sclerae ENMT: external ear and nose normal, oropharynx normal Neck: trachea midline, no thyromegaly Respiratory: normal respiratory effort, lungs clear to auscultation Cardiovascular: A-fib Gastrointestinal (Abdomen): normal bowel sounds, soft, nontender, no hepatosplenomegaly soft, NT, ND, BS + Musculoskeletal: Head/Neck/Chest: neck supple Extremities: + limited ROM of extremities Skin: no rashes, warm and dry Neurologic: patellar DTR's 2+ bilat, sensation intact Psychiatric: Orientation: alert and oriented x 3 Results & Data ([facility]) Vital Signs (Past 12 Hours) Vital Signs Temp Pulse Pulse Resp BP BP Pulse Ox 04/07/20 19:54 36.9 C 62 18 148/77 H 97 04/07/20 16:54 72 04/07/20 16:00 68 24 134/73 97 04/07/20 15:30 68 24 108/70 96 04/07/20 15:00 64 23 127/65 94 04/07/20 14:42 95 04/07/20 14:30 124/69 04/07/20 14:15 62 18 96 04/07/20 14:01 36.7 C 04/07/20 14:00 69 23 135/72 100 04/07/20 13:54 81 21 121/75 96 04/07/20 13:01 78 21 138/64 99 04/07/20 12:58 80 22 103/65 99 04/07/20 12:47 22 100 04/07/20 12:45 75 24 100 04/07/20 12:37 38 C H 88 20 156/76 H 96 04/07/20 12:30 80 22 100 04/07/20 12:17 22 04/07/20 12:13 98 H 20 156/76 H 96 Laboratory Results Abnormal lab results 04/07/20 04/07/20 04/07/20 Range/Units 12:50 12:50 12:50 WBC 13.97 H (4.8-10.8) K/uL RBC 4.08 L (4.7-6.1) M/uL Hgb 13.3 L (14.0-18.0) g/dL Hct 38.4 L (42-52) % Neut # (Auto) 12.79 H (1.4-6.5) K/uL Lymph # (Auto) 0.42 L (1.2-3.4) K/uL [place] # (Auto) 0.70 H (0.11-0.59) K/uL Immature Gran # (Auto) 0.03 H (0.00-0.02) K/uL PT 44.5 H (9.0-12.0) Seconds INR 4.6 H (0.9-1.1) APTT 39.9 H (21.0-31.0) Seconds Glucose 114 H (70-99) mg/dl Total Bilirubin 1.9 H (0.2-1) mg/dl AST 515 H (15-37) U/L ALT 276 H (12-78) U/L Alkaline Phosphatase 207 H (45-117) U/L Diagnostic Findings CT OF THE ABDOMEN AND PELVIS WITHOUT CONTRAST CLINICAL HISTORY: Fever. Altered mental status. COMPARISON STUDY: No previous studies for comparison. TECHNIQUE: Axial images of the abdomen and pelvis were obtained without IV contrast. Images were reviewed in the axial, sagittal, and coronal planes. Automated exposure control was utilized for the study. A dose lowering technique was utilized adhering to the principles of ALARA. FINDINGS: Lung bases are unremarkable. This exam is mildly compromised by motion artifact. No pneumatosis, free air or portal venous gas is present. Moderate cardiomegaly is noted. Pacer lead is partially imaged. Unenhanced images of liver, spleen, adrenal glands and pancreas are unremarkable. There is no hydronephrosis. There is moderate right renal cortical thinning. Gallbladder is distended. No adjacent infiltration is noted. There is no biliary or pancreatic ductal dilatation. There is no evidence for a bowel obstruction. The appendix is normal. Note is made of colonic diverticulosis without evidence for acute diverticulitis. There is no fluid collection is suggest an abscess. No suspicious osseous lesions are noted. There is an old L4 compression fracture. There may be a cystic lesion within the posterior cortex of the midpole of the right kidney, suboptimally assessed on this exam. IMPRESSION: 1. Exam moderately compromised by motion artifact and lack of contrast. 2. Distended gallbladder without pericholecystic infiltration. If suspicion for acute cholecystitis, a a right upper quadrant ultrasound could be obtained. 3. No bowel obstruction. 4. Colonic diverticulosis without evidence for acute diverticulitis. ACT 112: Negative or not required by law.
[2020-04-07] MEDS: QUETIAPINE FUMARATE 25 MG TABLET PO SCH (22:34)
[2020-04-08] MEDS: PIPERACILLIN/TAZOBACTAM 3.375 GM in DEXTROSE 5% 100 ML IV SCH ×2 (00:53→08:37)
[2020-04-08 07:32] LABS: Basophils # (auto) 0.01 K/uL (0-0.2); Basophils % (auto) 0.1 %; Eosinophils # (auto) 0.04 K/uL (0-0.5); Eosinophils % (auto) 0.4 %; Hematocrit (blood only) 36.2 % (42-52); Hemoglobin 12.3 g/dL (14.0-18.0); Immature Granulocytes # (auto) 0.03 K/uL (0.00-0.02); Immature Granulocytes % (auto) 0.3 %; Lymphocytes # (auto) 0.89 K/uL (1.2-3.4); Lymphocytes % (auto) 8.6 %; Mean Corpuscular Hemoglobin 32.1 pg (25-34); Mean Corpuscular Volume 94.5 fL (80-100); Mean Platelet Volume 10.2 fL (7.4-10.4); Monocytes % (auto) 7.7 %; Neutrophils # (auto) 8.59 K/uL (1.4-6.5); Neutrophils % (auto) 82.9 %; Platelet Count 207 K/uL (130-400); RDW Coefficient of Variation 13.2 % (11.5-14.5); RDW Standard Deviation 45.2 fL (36.4-46.3); Red Blood Count 3.83 M/uL (4.7-6.1); White Blood Count 10.36 K/uL (4.8-10.8)
[2020-04-08 07:55] LABS: INR 4.1 (0.9-1.1); Prothrombin Time 40.5 Seconds (9.0-12.0)
[2020-04-08 08:15] LABS: Albumin Level 2.9 gm/dl (3.4-5.0); BUN Creatinine Ratio 12.9 (10-20); Calcium 8.7 mg/dl (8.5-10.1); Est GFR (Non-African American) 49.2; Magnesium 1.9 mg/dl (1.8-2.4); Potassium 3.6 mmol/L (3.5-5.1)
[2020-04-08 08:33] LABS: Albumin Globulin Ratio 0.9 (0.9-2); Bilirubin,Total 1.2 mg/dl (0.2-1); Globulin 3.3 gm/dl (2.5-4.0); Total Protein 6.2 gm/dl (6.4-8.2); Troponin I 0.711 ng/ml (0-0.045)
[2020-04-08] MEDS: FLUOXETINE HCL 10 MG CAP PO SCH (08:37)
[2020-04-08] MEDS: LOSARTAN POTASSIUM 50 MG TAB PO SCH (08:37)
[2020-04-08] MEDS: PANTOprazole 40 MG TAB PO SCH (08:37)
[2020-04-08] MEDS: AMLODIPINE BESYLATE 5 MG TAB PO SCH (08:38)
[2020-04-08] MEDS: MULTIVITAMIN TAB PO SCH (08:41)
[2020-04-08] MEDS: QUETIAPINE FUMARATE 25 MG TABLET PO SCH ×3 (08:41→20:11)
[2020-04-08] MEDS: UMECLIDINIUM/VILANTEROL 62.5/25MCG 7 PUFFS/INHALER INH SCH (08:49)
[2020-04-08] MEDS: FLUTICASONE FUROATE 100MCG 14 PUFFS/INHALER INH SCH (08:49)
--- NOTE | 2020-04-08 08:51 | Gastrointestinal Consultation ---
Date of Consultation April 08, 2020 Assessment & Plan (1) Elevated LFTs: Patient admitted with a history of chest discomfort unable to give much historical information due to comorbid issues which include an expressive and receptive aphasia. Patient did have a noncontrast CT which is somewhat limited in the type of study. I would recommend further evaluation with either a right upper quadrant ultrasound or perhaps MRCP pending on the patient's type of pacemaker. This would give us some insight as to whether the liver test elevation is related to gallstones or choledocholithiasis. Alternative explanations could include congestive hepatopathy given some patient's prior history of aortic stenosis. Recommendations Right upper quadrant ultrasound or MRCP today If stone seen would recommend reversal of anticoagulation today and ERCP tomorrow if patient willing History of Present Illness Reason for Consultation: elevated ast/alt Requesting Physician: Dr. 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 He presented to ED secondary to acute onset chest pain, shortness of breath and diaphoresis that occurred yesterday. Unfortunately due to the patient's prior stroke history he is unable to give much insight into his present status. Most of my history is obtained from reviewing the chart and inpatient medical records. Allergies Allergy/AdvReac Type Severity Reaction Status Date / Time Iodinated Contrast Media Allergy Intermediate RASH Verified 04/07/20 12:44 Home Medications Home Medications Medication Instructions Recorded Confirmed Type amlodipine 5 mg PO DAILY 04/07/20 04/07/20 History atorvastatin 40 mg PO HS 04/07/20 04/07/20 History fluoxetine [Prozac] 10 mg PO DAILY 04/07/20 04/07/20 History sawwlkaqgha-byydhwpem-knojrrye 1 inh INHALATION DAILY 04/07/20 04/07/20 History [Trelegy Ellipta] hydrochlorothiazide 12.5 mg PO DAILY 04/07/20 04/07/20 History ipratropium-albuterol [Combivent 1 puff INHALATION Q4H PRN 04/07/20 04/07/20 History Respimat] losartan 50 mg PO DAILY 04/07/20 04/07/20 History bz-ly-WX-vit J-mkntl-absp-zeax 1 tab PO DAILY 04/07/20 04/07/20 History [Ocuvite Eye Plus Multi] pantoprazole 40 mg PO DAILY 04/07/20 04/07/20 History quetiapine [Seroquel] 12.5 mg PO TID 04/07/20 04/07/20 History warfarin 1.5 mg PO DAILY 04/07/20 04/07/20 History Patient History Medical History Atrial fibrillation COPD (chronic obstructive pulmonary disease) Current use of fdc anticoagulation CVA (cerebral vascular accident) History of sick sinus syndrome HLD (hyperlipidemia) HTN (hypertension) Macular degeneration Surgical History History of cardiac pacemaker History of hernia repair Hx of cataract extraction Family History Sister COPD (chronic obstructive pulmonary disease) Other Coronary heart disease Social History (Updated 04/07/20 @ 15:54 by Anna Marie Blanco PA-C) Smoking Status: Unknown if ever smoked Hx Alcohol Use: No Hx Substance Use: No Preferred Language: [place] Communication Ability: Impaired Communication Ability Comment: d/t stroke Dope Firer Required: No Beliefs That Will Affect Care: None marital status: Current Living Situation: Spouse and Rehab Current Living Situation Comment: pt came from [facility] Assistive Devices: None Review of Systems Review of Systems: Unobtainable due to cognitive status Physical Exam Constitutional: well developed and well nourished; no acute distress and not ill appearing Eyes: PERRL, conjunctivae normal, anicteric sclerae Neck: trachea midline, no thyromegaly Respiratory: normal respiratory effort; no respiratory distress and no labored breathing Cardiovascular: Heart Sounds: + murmur Extremities: no edema Gastrointestinal (Abdomen): Inspection/Auscultation: abdomen normal to inspection; abdomen not distended and no abdominal edema Percussion/Palpation: abdomen soft; abdomen nontender, no guarding and abdomen not rigid Results & Data ([facility]) Vital Signs (Past 12 Hours) Vital Signs Temp Pulse Pulse Resp BP BP Pulse Ox 04/08/20 07:00 37.1 C 58 L 18 124/62 95 04/08/20 04:00 37.2 C 64 18 112/62 95 04/08/20 01:49 63 18 127/66 94 04/08/20 00:00 36.8 C 63 18 148/60 H 98 Laboratory Results Laboratory Results - last 24 hr 04/07/20 04/07/20 04/07/20 12:30 12:30 12:30 WBC RBC Hgb Hct MCV MCH MCHC RDW Std Deviation RDW Coeff of Kylah Plt Count MPV Immature Gran % (Auto) Neut % (Auto) Lymph % (Auto) [place] % (Auto) Eos % (Auto) Baso % (Auto) Neut # (Auto) Lymph # (Auto) [place] # (Auto) Eos # (Auto) Baso # (Auto) Immature Gran # (Auto) PT INR APTT PTT Ratio Sodium Potassium Chloride Carbon Dioxide Anion Gap BUN Creatinine Est Cr Clr Drug Dosing Est GFR ( Amer) Est GFR (Non-Af Amer) BUN/Creatinine Ratio Glucose Lactate Calcium Magnesium Total Bilirubin AST ALT Alkaline Phosphatase Troponin I Total Protein Albumin Globulin Albumin/Globulin Ratio COVID-19 Eval Order Covid19 Done at [facility] COVID-19 PCR NEGATIVE Influenza Type A (PCR) Neg for Influ A Influenza Type B (PCR) Neg for Influ B 04/07/20 04/07/20 04/07/20 12:50 12:50 12:50 WBC 13.97 H RBC 4.08 L Hgb 13.3 L Hct 38.4 L MCV 94.1 MCH 32.6 MCHC 34.6 RDW Std Deviation 44.7 RDW Coeff of Kylah 12.9 Plt Count 239 MPV 10.2 Immature Gran % (Auto) 0.2 Neut % (Auto) 91.6 Lymph % (Auto) 3.0 [place] % (Auto) 5.0 Eos % (Auto) 0.1 Baso % (Auto) 0.1 Neut # (Auto) 12.79 H Lymph # (Auto) 0.42 L [place] # (Auto) 0.70 H Eos # (Auto) 0.02 Baso # (Auto) 0.01 Immature Gran # (Auto) 0.03 H PT 44.5 H INR 4.6 H APTT 39.9 H PTT Ratio 1.4 Sodium 140 Potassium 3.5 Chloride 104 Carbon Dioxide 30 Anion Gap 6.0 BUN 16 Creatinine 1.30 Est Cr Clr Drug Dosing Not Reportable Est GFR ( Amer) 58.1 Est GFR (Non-Af Amer) 50.1 BUN/Creatinine Ratio 12.1 Glucose 114 H Lactate Calcium 9.0 Magnesium Total Bilirubin 1.9 H AST 515 H ALT 276 H Alkaline Phosphatase 207 H Troponin I 0.029 Total Protein 7.1 Albumin 3.6 Globulin 3.5 Albumin/Globulin Ratio 1.0 COVID-19 Eval Order COVID-19 PCR Influenza Type A (PCR) Influenza Type B (PCR) 04/07/20 04/07/20 04/08/20 12:50 12:50 00:21 WBC RBC Hgb Hct MCV MCH MCHC RDW Std Deviation RDW Coeff of Kylah Plt Count MPV Immature Gran % (Auto) Neut % (Auto) Lymph % (Auto) [place] % (Auto) Eos % (Auto) Baso % (Auto) Neut # (Auto) Lymph # (Auto) [place] # (Auto) Eos # (Auto) Baso # (Auto) Immature Gran # (Auto) PT INR APTT PTT Ratio Sodium Potassium Chloride Carbon Dioxide Anion Gap BUN Creatinine Est Cr Clr Drug Dosing Est GFR ( Amer) Est GFR (Non-Af Amer) BUN/Creatinine Ratio Glucose Lactate 1.7 Calcium Magnesium 1.9 Total Bilirubin AST ALT Alkaline Phosphatase Troponin I 0.917 H* Total Protein Albumin Globulin Albumin/Globulin Ratio COVID-19 Eval Order COVID-19 PCR Influenza Type A (PCR) Influenza Type B (PCR) 04/08/20 04/08/20 04/08/20 07:03 07:03 07:03 WBC 10.36 RBC 3.83 L Hgb 12.3 L Hct 36.2 L MCV 94.5 MCH 32.1 MCHC 34.0 RDW Std Deviation 45.2 RDW Coeff of Kylah 13.2 Plt Count 207 MPV 10.2 Immature Gran % (Auto) 0.3 Neut % (Auto) 82.9 Lymph % (Auto) 8.6 [place] % (Auto) 7.7 Eos % (Auto) 0.4 Baso % (Auto) 0.1 Neut # (Auto) 8.59 H Lymph # (Auto) 0.89 L [place] # (Auto) 0.80 H Eos # (Auto) 0.04 Baso # (Auto) 0.01 Immature Gran # (Auto) 0.03 H PT 40.5 H INR 4.1 H APTT PTT Ratio Sodium 141 Potassium 3.6 Chloride 105 Carbon Dioxide 28 Anion Gap 8.0 BUN 17 Creatinine 1.32 Est Cr Clr Drug Dosing 43.0 Est GFR ( Amer) 57.0 Est GFR (Non-Af Amer) 49.2 BUN/Creatinine Ratio 12.9 Glucose 94 Lactate Calcium 8.7 Magnesium 1.9 Total Bilirubin 1.2 H AST 232 H ALT 309 H Alkaline Phosphatase 152 H Troponin I 0.711 H* Total Protein 6.2 L Albumin 2.9 L Globulin 3.3 Albumin/Globulin Ratio 0.9 COVID-19 Eval Order COVID-19 PCR Influenza Type A (PCR) Influenza Type B (PCR) Diagnostic Findings CT OF THE ABDOMEN AND PELVIS WITHOUT CONTRAST CLINICAL HISTORY: Fever. Altered mental status. COMPARISON STUDY: No previous studies for comparison. TECHNIQUE: Axial images of the abdomen and pelvis were obtained without IV contrast. Images were reviewed in the axial, sagittal, and coronal planes. Automated exposure control was utilized for the study. A dose lowering technique was utilized adhering to the principles of ALARA. FINDINGS: Lung bases are unremarkable. This exam is mildly compromised by motion artifact. No pneumatosis, free air or portal venous gas is present. Moderate cardiomegaly is noted. Pacer lead is partially imaged. Unenhanced images of liver, spleen, adrenal glands and pancreas are unremarkable. There is no hydronephrosis. There is moderate right renal cortical thinning. Gallbladder is distended. No adjacent infiltration is noted. There is no biliary or pancreatic ductal dilatation. There is no evidence for a bowel obstruction. The appendix is normal. Note is made of colonic diverticulosis without evidence for acute diverticulitis. There is no fluid collection is suggest an abscess. No suspicious osseous lesions are noted. There is an old L4 compression fracture. There may be a cystic lesion within the posterior cortex of the midpole of the right kidney, suboptimally assessed on this exam. IMPRESSION: 1. Exam moderately compromised by motion artifact and lack of contrast. 2. Distended gallbladder without pericholecystic infiltration. If suspicion for acute cholecystitis, a a right upper quadrant ultrasound could be obtained. 3. No bowel obstruction. 4. Colonic diverticulosis without evidence for acute diverticulitis.
--- NOTE | 2020-04-08 12:52 | Ultrasound Report ---
US liver HISTORY: 84 years-old Male ? CBD Stone acute right upper quadrant abdominal pain with fever COMPARISON: CT abdomen and pelvis 04/07/2020 TECHNIQUE: Multiple real-time sonographic images of the abdominal right upper quadrant were obtained assessing grayscale appearance and color flow FINDINGS: Pancreas is not diagnostically visualized. Moderately distended gallbladder is noted with layering sl udge and a few dependent shadowing stones. Gallbladder wall is thickened measuring up to 5 mm. There is no definite pericholecystic fluid. Sonographic Lester sign was not reported. Common bile duct anil ures 6 mm. Echogenic focus with posterior acoustic shadowing within the common bile duct suggestive o f choledocholithiasis measures up to 1.8 cm in length. Cortical thinning of the right kidney without hydronephrosis. IMPRESSION: 1. Gallbladder distention with layering sludge and cholelithiasis. There is gallbladder wall thickeni ng without appreciable pericholecystic fluid or edema. Findings are suspicious for acute cholecystiti s. 2. No biliary ductal dilation. There is however an echogenic shadowing focus within the common bile d uct suggestive of choledocholithiasis. ACT 112: Negative or not required by law. The above report was generated using voice recognition software. It may contain grammatical, syntax o r spelling errors. Electronically signed by: Christofer Mccarthy M.D. 04/08/2020 12:51 PM
--- NOTE | 2020-04-08 13:35 | Communication Note ---
Date of Service: April 08, 2020 I was able to contact the patients daughter this afternoon and discuss the present findings. He appears to have cholelithiasis / choledocholithiasis on imaging. At present, the patient and his POA are firm in their desire to not pursue any further care for this problem (ie antibiotics or procedures). I did review the findings and process of ERCP with them to ensure they had the appropriate information to make an informed decision. Plan No plan for ERCP as per patient and family wishes please call with any questions or should a change of plan be requested by the patient and or family.
--- NOTE | 2020-04-08 14:00 | Surgery Progress Note ---
Date of Service pt is stable, no abdominal pain, no nausea, no fever, April 08, 2020 Assessment & Plan (1) Acute chest pain: (2) Abnormal LFTs: pt is a 84 year-old male who was admitted to hospital for acute chest pain, with elevate LFT, IMP: Cholecystitis, CBD stone?, cholangitis? Plan, recommend to do U/S study on gallbladder to R/O gallstone, IV antibiotic, repeat labs in am, will F/U,consult GI . 04/08/2020 2:03PM. stable, U/S acute cholecystitis, with gallstone, CBD stone, recommend to do MRCP, or ERCP, per-GI, continue iv antibiotic, no emergent surgery for cholecystectomy now, pt may need cholecystectomy after ERCP, depend on family decision, will F/U Admission and Anticipated Discharge Date Admission Date: April 08, 2020 Supervising Physician Co-Signing Physician Notes Patient is an 84-year-old male with multiple comorbidities presents with history of chest pain, shortness of breath and diaphoresis. Patient is a very poor historian. Currently refuses any medical treatment. Currently denies any chest pain, shortness of breath, abd pain during my encounter. Please review HPI for complete details of presentation. He was noted to be febrile, had leukocytosis 13.9 K, INR elevated at 4.6. Transaminitis noted. CT abdomen is concerning for acute cholecystitis. Initial troponin is negative. EKG showed atrial fibrillation with ST-T wave changes. On exam patient is elderly, no apparent distress, normocephalic atraumatic, mostly aphasic, lungs are clear to auscultation, irregularly irregular rhythm,+ systolic murmur, no pedal edema, abdomen soft, no guarding or rigidity, denies tenderness, alert, awake, difficult to perform complete neurological exam, grossly moves all extremities. Patient is admitted for management of chest pain rule out ACS, possible acute cholecystitis, coagulopathy secondary to Coumadin. Patient refused ultrasound. Empirically started on IV fluids, IV antibiotics but currently patient refusing care. Consulted surgery for input. Will hold Coumadin as INR supratherapeutic. Monitor LFTs. Pacemaker interrogation requested. Urine analysis is currently pending. Will consult palliative care to address goals of care. I personally reviewed the record. Patient is interviewed and examined at bedside. Patient's care is coordinated with Anna Marie Blanco PA-C. Please refer to the documentation above for details of patient's presentation and for discussion of other issues. Physical Exam Constitutional: WD/WN, vitals as above well developed and well nourished Eyes: PERRL, conjunctivae normal, anicteric sclerae ENMT: external ear and nose normal, oropharynx normal Neck: trachea midline, no thyromegaly Respiratory: normal respiratory effort, lungs clear to auscultation Gastrointestinal (Abdomen): normal bowel sounds, soft, nontender, no hepatosplenomegaly Musculoskeletal: Head/Neck/Chest: neck supple Extremities: + limited ROM of extremities Skin: no rashes, warm and dry Neurologic: patellar DTR's 2+ bilat, sensation intact Psychiatric: Orientation: alert and oriented x 3 Results & Data ([facility]) Vital Signs (Past 12 Hours) Vital Signs Temp Pulse Resp BP Pulse Ox 04/08/20 11:19 36.3 C L 91 H 18 112/70 96 04/08/20 07:00 37.1 C 58 L 18 124/62 95 04/08/20 04:00 37.2 C 64 18 112/62 95 Laboratory Results Abnormal lab results 04/08/20 04/08/20 04/08/20 Range/Units 00:21 07:03 07:03 RBC 3.83 L (4.7-6.1) M/uL Hgb 12.3 L (14.0-18.0) g/dL Hct 36.2 L (42-52) % Neut # (Auto) 8.59 H (1.4-6.5) K/uL Lymph # (Auto) 0.89 L (1.2-3.4) K/uL [place] # (Auto) 0.80 H (0.11-0.59) K/uL Immature Gran # (Auto) 0.03 H (0.00-0.02) K/uL PT (9.0-12.0) Seconds INR (0.9-1.1) Total Bilirubin 1.2 H (0.2-1) mg/dl AST 232 H (15-37) U/L ALT 309 H (12-78) U/L Alkaline Phosphatase 152 H (45-117) U/L Troponin I 0.917 H* 0.711 H* (0-0.045) ng/ml Total Protein 6.2 L (6.4-8.2) gm/dl Albumin 2.9 L (3.4-5.0) gm/dl 04/08/20 Range/Units 07:03 RBC (4.7-6.1) M/uL Hgb (14.0-18.0) g/dL Hct (42-52) % Neut # (Auto) (1.4-6.5) K/uL Lymph # (Auto) (1.2-3.4) K/uL [place] # (Auto) (0.11-0.59) K/uL Immature Gran # (Auto) (0.00-0.02) K/uL PT 40.5 H (9.0-12.0) Seconds INR 4.1 H (0.9-1.1) Total Bilirubin (0.2-1) mg/dl AST (15-37) U/L ALT (12-78) U/L Alkaline Phosphatase (45-117) U/L Troponin I (0-0.045) ng/ml Total Protein (6.4-8.2) gm/dl Albumin (3.4-5.0) gm/dl Diagnostic Findings US liver HISTORY: 84 years-old Male ? CBD Stone acute right upper quadrant abdominal pain with fever COMPARISON: CT abdomen and pelvis 04/07/2020 TECHNIQUE: Multiple real-time sonographic images of the abdominal right upper quadrant were obtained assessing grayscale appearance and color flow FINDINGS: Pancreas is not diagnostically visualized. Moderately distended gallbladder is noted with layering sludge and a few dependent shadowing stones. Gallbladder wall is thickened measuring up to 5 mm. There is no definite pericholecystic fluid. Sonographic Lester sign was not reported. Common bile duct measures 6 mm. Echogenic focus with posterior acoustic shadowing within the common bile duct suggestive of choledocholithiasis measures up to 1.8 cm in length. Cortical thinning of the right kidney without hydronephrosis. IMPRESSION: 1. Gallbladder distention with layering sludge and cholelithiasis. There is gallbladder wall thickening without appreciable pericholecystic fluid or edema. Findings are suspicious for acute cholecystitis. 2. No biliary ductal dilation. There is however an echogenic shadowing focus within the common bile duct suggestive of choledocholithiasis.
--- NOTE | 2020-04-08 15:44 | Hospitalist Progress Note ---
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 He presented to ED secondary to acute onset chest pain, shortness of breath and diaphoresis that occurred at 11 AM. Chest Pain Likely referred pain from Gall bladder Chest Pain resolved while in ED Also ACS can not be completely ruled out Mild Troponin elevation DD:Likely Type II [place] Vs ACS Refused ECHO or any other further investigations EKG showed ST-T wave changes Continue statin, losartan Currently has no chest pain Possible Acute Cholecystitis/Cholangitis Transaminitis Cholelithiasis/choledocholithiasis --CT ABD:Exam moderately compromised by motion artifact and lack of contrast. Distended gallbladder without pericholecystic infiltration. If suspicion for acute cholecystitis, a a right upper quadrant ultrasound could be obtained. No bowel obstruction. Colonic diverticulosis without evidence for acute diverticulitis. --Liver USD: Gallbladder distention with layering sludge and cholelithiasis. There is gallbladder wall thickening without appreciable pericholecystic fluid or edema. Findings are suspicious for acute cholecystitis. No biliary ductal dilation. There is however an echogenic shadowing focus within the common bile duct suggestive of choledocholithiasis. Initially started treating with IV antibiotics given difficulty with understanding patient's preference and lack of information on living Will Although has some expressive aphasia--patient stated "I DO NOT WANT TREATMENT " "I AM FINE" on atleast 2 occasions Appreciate Surgery /GI Input Ideally needs MRCP with or without ERCP and Cholecystectomy eventually including treatment with IV antibiotics. Despite extensive discussion regarding benefits of treatment and consequences on untreated, patient refused any further investigations or treatment Discussed with patient and his daughter-POA (Pedro) in detail including risks/complications/consequences of being not treated which could even result in deterioration of medical condition/ Daughter confirms patient's wishes not to move forward with further treatment including IV Abx Living Will states that patient prefers not to be treated with IV antibiotics as well Given Patient/Family wishes---Antibiotics are discontinued Patient/POA---understands and agrees with plan of care Palliative Care is consulted to address goals of care (2) Elevated LFTs: Hold statin Management as above (3) Acute renal insufficiency: Received IV fluids Monitor renal function (4) Supratherapeutic INR: INR:4.1 Continue to hold warfarin Monitor INR No bleeding issues (5) CVA (cerebral vascular accident): Left parietal and occipital CVA 03/29/2020 with resultant expressive and receptive aphasia On warfarin and statin Hold statin in setting of elevated LFTs Hold warfarin due to supratherapeutic INR Speech therapy consulted Aspiration, fall precautions (6) Atrial fibrillation: S/P pacemaker Continue home medications Resume Coumadin as able (7) Cardiac pacemaker in situ: Sick sinus syndrome status post pacemaker Pacemaker interrogation ordered (8) HTN (hypertension): Stable Continue amlodipine, losartan Resume HCTZ as able (9) COPD (chronic obstructive pulmonary disease): No acute exacerbation Continue Trelegy (10) Lung nodule < 6cm on CT: 4mm solid nodule RLL Solitary nodule size: <6 mm * Low risk patients: no follow-up needed * high risk patients: optional CT at 12 months Needs repeat imaging as outpatient if patient agrees (11) DVT prophylaxis: supratherapeutic INR Code Status DNI/DNR Disposition: Palliative care to address goals of care Case management consulted to help with discharge planning Admission and Anticipated Discharge Date Admission Date: April 08, 2020 Subjective Patient is seen and examined at bedside Refuses treatment and investigations Discussed with patient's daughter-POA in detail Living will stating not to be treated with IV antibiotics Discussed with gastroenterology today Patient denies chest pain, shortness of breath, dizziness, nausea, abdominal pain Offers no other complaints Review of Systems Review of Systems: All systems reviewed & are unremarkable except as noted in HPI & below Physical Exam Physical Exam: Physical Exam: Vitals signs as noted above General Appearance:Moderately built and nourished, no apparent distress Head: normocephalic, Atraumatic Eyes: normal inspection, EOMI Neck: supple, Trachea midline Respiratory/Chest: Normal breath sounds, CTA Cardiovascular: Irregularly irregular, + systolic murmur Abdomen/GI:Soft, Non tender, no guarding or rigidity, bowel sounds present Extremities/Musculoskelatal:normal inspection, no edema Neurologic/Psych: Alert, awake, oriented to person and place, expressive aphasia, grossly no other focal deficits Skin: normal color, warm Results & Data Results & Data ([place]) Vital Signs (Past 12 Hours) Vital Signs Temp Pulse Resp BP BP Pulse Ox 04/08/20 15:06 36.8 C 60 20 139/81 96 04/08/20 11:19 36.3 C L 91 H 18 112/70 96 04/08/20 07:00 37.1 C 58 L 18 124/62 95 04/08/20 04:00 37.2 C 64 18 112/62 95 Laboratory Results Short CBC 04/08/20 Range/Units 07:03 WBC 10.36 (4.8-10.8) K/uL Hgb 12.3 L (14.0-18.0) g/dL Hct 36.2 L (42-52) % Plt Count 207 (130-400) K/uL BMP 04/08/20 07:03 Sodium 141 Potassium 3.6 Chloride 105 Carbon Dioxide 28 BUN 17 Creatinine 1.32 Glucose 94 Calcium 8.7 Cardiac Enzymes 04/08/20 04/08/20 Range/Units 00:21 07:03 Troponin I 0.917 H* 0.711 H* (0-0.045) ng/ml Liver Function 04/08/20 Range/Units 07:03 Total Bilirubin 1.2 H (0.2-1) mg/dl AST 232 H (15-37) U/L ALT 309 H (12-78) U/L Alkaline Phosphatase 152 H (45-117) U/L Albumin 2.9 L (3.4-5.0) gm/dl
--- NOTE | 2020-04-09 07:45 | Electrocardiogram Report ---
Test Reason : Blood Pressure : / mmHG Vent. Rate : 084 BPM Atrial Rate : 227 BPM P-R Int : 000 ms QRS Dur : 088 ms QT Int : 360 ms P-R-T Axes : 000 -77 -56 degrees QTc Int : 425 ms Atrial fibrillation with a demand pacemaker Premature ventricular complexes Left axis deviation Marked ST abnormality, possible lateral subendocardial injury Abnormal ECG No previous ECGs available Confirmed by Krishna Moreau ([id number]) on 04/09/2020 7:45:30 AM Referred By: Confirmed By:Krishna Moreau
--- NOTE | 2020-04-09 07:46 | Electrocardiogram Report ---
Test Reason : Blood Pressure : / mmHG Vent. Rate : 074 BPM Atrial Rate : 104 BPM P-R Int : 000 ms QRS Dur : 086 ms QT Int : 372 ms P-R-T Axes : 000 -71 -68 degrees QTc Int : 412 ms Poor data quality, interpretation may be adversely affected Atrial fibrillation Left axis deviation Septal infarct , age undetermined Abnormal ECG When compared with ECG of 07-APR-2020 12:13, (unconfirmed) No significant change Confirmed by Krishna Moreau ([id number]) on 04/09/2020 7:46:15 AM Referred By: REFERRED SELF Confirmed By:Krishna Moreau
[2020-04-09] MEDS: FLUTICASONE FUROATE 100MCG 14 PUFFS/INHALER INH SCH (09:05)
[2020-04-09] MEDS: UMECLIDINIUM/VILANTEROL 62.5/25MCG 7 PUFFS/INHALER INH SCH (09:05)
[2020-04-09] MEDS: FLUOXETINE HCL 10 MG CAP PO SCH (09:05)
[2020-04-09] MEDS: LOSARTAN POTASSIUM 50 MG TAB PO SCH (09:05)
[2020-04-09] MEDS: QUETIAPINE FUMARATE 25 MG TABLET PO SCH ×3 (09:05→22:02)
[2020-04-09] MEDS: AMLODIPINE BESYLATE 5 MG TAB PO SCH (09:05)
[2020-04-09] MEDS: PANTOprazole 40 MG TAB PO SCH (09:05)
[2020-04-09] MEDS: MULTIVITAMIN TAB PO SCH (09:05)
[2020-04-09 09:28] LABS: INR 3.8 (0.9-1.1); Prothrombin Time 37.1 Seconds (9.0-12.0)
--- NOTE | 2020-04-09 11:57 | Surgery Progress Note ---
Date of Service pt is stable, no abdominal pain, no nausea, no vomiting, April 09, 2020 Assessment & Plan (1) Acute chest pain: (2) Abnormal LFTs: pt is a 84 year-old male who was admitted to hospital for acute chest pain, with elevate LFT, IMP: Cholecystitis, CBD stone?, cholangitis? Plan, recommend to do U/S study on gallbladder to R/O gallstone, IV antibiotic, repeat labs in am, will F/U,consult GI . 04/08/2020 2:03PM. stable, U/S acute cholecystitis, with gallstone, CBD stone, recommend to do MRCP, or ERCP, per-GI, continue iv antibiotic, no emergent surgery for cholecystectomy now, pt may need cholecystectomy after ERCP, depend on family decision, will F/U 04/09/2020, base on pt's co-morbility, pt is poor candidate for cholecystectomy, pt dose want any surgery, hopitalist note pt's daughter dose not want any treatment, sign off today, please call with questions, thanks Admission and Anticipated Discharge Date Admission Date: April 08, 2020 Supervising Physician Co-Signing Physician Notes Patient is an 84-year-old male with multiple comorbidities presents with history of chest pain, shortness of breath and diaphoresis. Patient is a very poor historian. Currently refuses any medical treatment. Currently denies any chest pain, shortness of breath, abd pain during my encounter. Please review HPI for complete details of presentation. He was noted to be febrile, had leukocytosis 13.9 K, INR elevated at 4.6. Transaminitis noted. CT abdomen is concerning for acute cholecystitis. Initial troponin is negative. EKG showed atrial fibrillation with ST-T wave changes. On exam patient is elderly, no apparent distress, normocephalic atraumatic, mostly aphasic, lungs are clear to auscultation, irregularly irregular rhythm,+ systolic murmur, no pedal edema, abdomen soft, no guarding or rigidity, denies tenderness, alert, awake, difficult to perform complete neurological exam, grossly moves all extremities. Patient is admitted for management of chest pain rule out ACS, possible acute cholecystitis, coagulopathy secondary to Coumadin. Patient refused ultrasound. Empirically started on IV fluids, IV antibiotics but currently patient refusing care. Consulted surgery for input. Will hold Coumadin as INR supratherapeutic. Monitor LFTs. Pacemaker interrogation requested. Urine analysis is currently pending. Will consult palliative care to address goals of care. I personally reviewed the record. Patient is interviewed and examined at bedside. Patient's care is coordinated with Anna Marie Blanco PA-C. Please refer to the documentation above for details of patient's presentation and for discussion of other issues. Subjective Patient is seen and examined at bedside Refuses treatment and investigations Discussed with patient's daughter-POA in detail Living will stating not to be treated with IV antibiotics Discussed with gastroenterology today Patient denies chest pain, shortness of breath, dizziness, nausea, abdominal pain Offers no other complaints Physical Exam 2 Constitutional: WD/WN, vitals as above well developed and well nourished Eyes: PERRL, conjunctivae normal, anicteric sclerae ENMT: external ear and nose normal, oropharynx normal Neck: trachea midline, no thyromegaly Respiratory: normal respiratory effort, lungs clear to auscultation Gastrointestinal (Abdomen): normal bowel sounds, soft, nontender, no hepatosplenomegaly Musculoskeletal: Head/Neck/Chest: neck supple Extremities: + limited ROM of extremities Skin: no rashes, warm and dry Neurologic: patellar DTR's 2+ bilat, sensation intact Psychiatric: Orientation: alert and oriented x 3 Results & Data ([facility]) Vital Signs (Past 12 Hours) Vital Signs Temp Pulse Resp BP Pulse Ox 04/09/20 11:00 36.7 C 84 18 145/77 H 98 04/09/20 07:40 36.9 C 59 L 18 146/70 H 97 04/09/20 03:30 36.8 C 55 L 20 149/73 H 96 Laboratory Results Abnormal lab results 04/09/20 Range/Units 08:47 PT 37.1 H (9.0-12.0) Seconds INR 3.8 H (0.9-1.1)
--- NOTE | 2020-04-09 16:59 | Hospitalist Progress Note ---
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 He presented to ED secondary to acute onset chest pain, shortness of breath and diaphoresis that occurred at 11 AM. Chest Pain Likely referred pain from Gall bladder Chest Pain resolved while in ED Also ACS can not be completely ruled out Mild Troponin elevation DD:Likely Type II CT Vs ACS Refused ECHO or any other further investigations EKG showed ST-T wave changes Continue statin, losartan Currently has no chest pain Possible Acute Cholecystitis/Cholangitis Transaminitis Cholelithiasis/choledocholithiasis --CT ABD:Exam moderately compromised by motion artifact and lack of contrast. Distended gallbladder without pericholecystic infiltration. If suspicion for acute cholecystitis, a a right upper quadrant ultrasound could be obtained. No bowel obstruction. Colonic diverticulosis without evidence for acute diverticulitis. --Liver USD: Gallbladder distention with layering sludge and cholelithiasis. There is gallbladder wall thickening without appreciable pericholecystic fluid or edema. Findings are suspicious for acute cholecystitis. No biliary ductal dilation. There is however an echogenic shadowing focus within the common bile duct suggestive of choledocholithiasis. Initially started treating with IV antibiotics given difficulty with understanding patient's preference and lack of information on living Will Although has some expressive aphasia--patient stated "I DO NOT WANT TREATMENT " "I AM FINE" on atleast 2 occasions Appreciate Surgery /GI Input Ideally needs MRCP with or without ERCP and Cholecystectomy eventually including treatment with IV antibiotics. Despite extensive discussion regarding benefits of treatment and consequences on untreated, patient refused any further investigations or treatment Discussed with patient and his daughter-POA (Pedro) in detail including risks/complications/consequences of being not treated which could even result in deterioration of medical condition/ Daughter confirms patient's wishes not to move forward with further treatment including IV or Oral Antibiotics Living Will on file. Patient's POA prefers no blood draws for lab testing except for PT/INR checks Given Patient/Family wishes---Antibiotics are discontinued Patient/POA---understands and agrees with plan of care Palliative Care is consulted to address goals of care No distress on exam/Denies Pain Await for palliative Input Advance diet as tolerated (2) Elevated LFTs: Hold statin Management as above (3) Acute renal insufficiency: Received IV fluids Monitor renal function (4) Supratherapeutic INR: INR:4.1>>3.8 Continue to hold warfarin Monitor INR No bleeding issues Resume coumadin as able (5) CVA (cerebral vascular accident): Left parietal and occipital CVA 03/29/2020 with resultant expressive and receptive aphasia On warfarin and statin Hold statin in setting of elevated LFTs Hold warfarin due to supratherapeutic INR Aspiration, fall precautions (6) Atrial fibrillation: S/P pacemaker Continue home medications Resume Coumadin as able (7) Cardiac pacemaker in situ: Sick sinus syndrome status post pacemaker Pacemaker interrogation ordered (8) HTN (hypertension): Stable Continue amlodipine, losartan Resume HCTZ as able (9) COPD (chronic obstructive pulmonary disease): No acute exacerbation Continue Trelegy (10) Lung nodule < 6cm on CT: 4mm solid nodule RLL Solitary nodule size: <6 mm * Low risk patients: no follow-up needed * high risk patients: optional CT at 12 months Needs repeat imaging as outpatient if patient agrees (11) DVT prophylaxis: supratherapeutic INR Code Status DNI/DNR Disposition: Palliative care to address goals of care Case management consulted to help with discharge planning Admission and Anticipated Discharge Date Admission Date: April 08, 2020 Subjective Patient is seen and examined at bedside History is limited secondary to receptive aphasia Discussed with patient's POA--agrees to monitor PT/INR and adjust Coumadin dose accordingly Patient's POA--defers using antibiotics including oral Patient requesting to advance diet Patient denies chest pain, SOB, dizziness, nausea, abdominal pain Offers no other complaints Review of Systems Review of Systems: Other Physical Exam Physical Exam: Physical Exam: Vitals signs as noted above General Appearance:Moderately built and nourished, no apparent distress Head: normocephalic, Atraumatic Eyes: normal inspection, EOMI Neck: supple, Trachea midline Respiratory/Chest: Normal breath sounds, CTA Cardiovascular: Irregularly irregular, + systolic murmur Abdomen/GI:Soft, Non tender, no guarding or rigidity, bowel sounds present Extremities/Musculoskelatal:normal inspection, no edema Neurologic/Psych: Alert, awake, oriented to person and place, expressive/rece ptive aphasia, grossly no other focal deficits Skin: normal color, warm Results & Data Results & Data ([facility]) Vital Signs (Past 12 Hours) Vital Signs Temp Pulse Resp BP Pulse Ox 04/09/20 14:50 36.7 C 59 L 18 134/69 95 04/09/20 11:00 36.7 C 84 18 145/77 H 98 04/09/20 07:40 36.9 C 59 L 18 146/70 H 97
--- NOTE | 2020-04-10 08:49 | Palliative Care Consultation ---
Date of Consultation April 10, 2020 Assessment & Plan (1) Palliative care encounter: This is an 84-year-old male who presented to the ED from [facility] with chest pain, SOB, and diaphoresis. 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 Troponin was negative, an EKG resulted in rate- controlled A-fib with ST depression and T wave inversions. His initial WBC was 13.97. A abdominal and pelvic CT was obtained and results revealed gallbladder distention. Dr. Jung, from GI, was able to see the patient and discuss all risks, complications, and consequences of not pushing intervention. The family decided that they did not want to pursue any further treatment for this, including diagnostic testing, like an ERCP, and medications. Palliative Care was consulted to discuss goals of care. -I met with the patient in room 277-2. The patient was awake, lying in his bed, in no apparent distress. -Patient with extensive mixed aphagia. You could tell the patient was frustrated with no being able to express his wishes, but he did say" Oh, I am just done already", but it was out of context. -Lengthy conversation held with the patients daughterPedro on the phone. . Discussed that they recognize he has a lot of other co-morbidities in his history and this is just one more thing to add. They do understand that this can likely be treated, but instead want to take a more conservative approach and focus on less hospital time. He has been recently at [facility], [facility], and now here. -His has dementia and they are hoping to transition both of them to [facility] in [place]. Per daughter, there is a bed available for both of them in the coming days. -I explained that [facility] is a [facility] and we would need to ensure that he did not exceed their needs, or see if they would accept him with hospice services. -Alternative options includes Home with 24/7 care or a SNF with some gentle rehab and transition to hospice. -Apparently, family has a meeting with some caregivers on Friday evening. -POLST form would be helpful prior to discharge. -Case management updated and will follow up with family. Will need to see assessment from PT/OT as to patient ADL capabilities. -Hospitalist and case management updated. -PPS: 30% (2) COPD (chronic obstructive pulmonary disease): (3) Aphasia: (4) CVA (cerebral vascular accident): (5) Atrial fibrillation: Supervising Physician Co-Signing Physician Notes Chart reviewed, pt seen and examined. Pt known to me from [facility]. Pt able to dress himself including tie shoes - his deficits are receptive and expressive aphasia - he is able to speak a few words or nearly a sentence clearly at times - often speech is word salad. Pt cares for his with Alzheimer's - he would oftern refuse to participate in rehab therapies - he is just wanting to go home and care for his which he has been able to voice on several occasions. Pt is not able to care for himself or his due to cognitive deficits - he would do well if placed with his in a facility that can meet their needs. PE: NAD HEENT: EOMI, mild [place] Resp: clear BS CV: RR , no edema Abd: soft, NT Neuro: receptive and expressive aphasia due to CVA History of Present Illness Reason for Consultation: Goals of care Requesting Physician: Dr. Marcos Attending Physician: Richard Marcos MD History of Present Illness This is an 84-year-old male who presented to the ED from [facility] with chest pain, SOB, and diaphoresis. 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 Troponin was negative, an EKG resulted in rate- controlled A-fib with ST depression and T wave inversions. His initial WBC was 13.97. A abdominal and pelvic CT was obtained and results revealed gallbladder distention. Dr. Jung, from GI, was able to see the patient and discuss all risks, complications, and consequences of not pushing intervention. The family decided that they did not want to pursue any further treatment for this, including diagnostic testing, like an ERCP, and medications. Palliative Care was consulted to discuss goals of care. Please see A/P for details. Thank you kindly for involving the palliative care team with this patient. Natasha: [phone] Pedro: Allergies Allergy/AdvReac Type Severity Reaction Status Date / Time Iodinated Contrast Media Allergy Intermediate RASH Verified 04/07/20 12:44 Home Medications Home Medications Medication Instructions Recorded Confirmed Type amlodipine 5 mg PO DAILY 04/07/20 04/07/20 History atorvastatin 40 mg PO HS 04/07/20 04/07/20 History fluoxetine [Prozac] 10 mg PO DAILY 04/07/20 04/07/20 History zmlodclabsn-nwudwaslt-ltlmcwyg 1 inh INHALATION DAILY 04/07/20 04/07/20 History [Trelegy Ellipta] hydrochlorothiazide 12.5 mg PO DAILY 04/07/20 04/07/20 History ipratropium-albuterol [Combivent 1 puff INHALATION Q4H PRN 04/07/20 04/07/20 H istory Respimat] losartan 50 mg PO DAILY 04/07/20 04/07/20 History mi-oc-BY-vit A-msoxe-tkjs-zeax 1 tab PO DAILY 04/07/20 04/07/20 History [Ocuvite Eye Plus Multi] pantoprazole 40 mg PO DAILY 04/07/20 04/07/20 History quetiapine [Seroquel] 12.5 mg PO TID 04/07/20 04/07/20 History warfarin 1.5 mg PO DAILY 04/07/20 04/07/20 History Patient History Medical History (Updated 04/10/20 @ 08:49 by VICENTE Perez) Atrial fibrillation COPD (chronic obstructive pulmonary disease) Current use of fdc anticoagulation CVA (cerebral vascular accident) History of sick sinus syndrome HLD (hyperlipidemia) HTN (hypertension) Macular degeneration Palliative care encounter Surgical History History of cardiac pacemaker History of hernia repair Hx of cataract extraction Family History Sister COPD (chronic obstructive pulmonary disease) Other Coronary heart disease Social History Smoking Status: Unknown if ever smoked Hx Alcohol Use: No Hx Substance Use: No Preferred Language: Mongolian Communication Ability: Impaired Communication Ability Comment: d/t stroke [employer] Required: No Beliefs That Will Affect Care: None marital status: Current Living Situation: Spouse and Rehab Current Living Situation Comment: pt came from [facility] Assistive Devices: None Review of Systems Review of Systems: Unobtainable due to cognitive status Physical Exam Constitutional: cooperative Respiratory: normal respiratory effort, lungs clear to auscultation Cardiovascular: RRR, no murmur, no edema Rate/Rhythm: regular rate and regular rhythm Extremities: normal capillary refill Gastrointestinal (Abdomen): normal bowel sounds, soft, nontender, no hepatosplenomegaly Skin: no rashes, warm and dry Psychiatric: Orientation: alert and cooperative Speech: + abnormal rate/rhythm/volume of speech Insight: + limited insight Judgement: + limited judgement Results & Data ([facility]) Vital Signs (Past 12 Hours) Vital Signs Temp Pulse Pulse Resp BP Pulse Ox 04/10/20 08:03 36.9 C 61 16 167/84 H 96 04/10/20 07:00 55 L 04/10/20 03:35 37.0 C 63 20 137/75 96 04/09/20 23:00 37.0 C 68 20 112/62 100 PG Care Time/CCT Total # of Minutes Spent Total Time Spent with Patient: Total time spent is greater than 50% in coordination of care (as documented) at patient's floor/unit and/or counseling patient: 100 Prolonged Care Time Prolonged Care Time: Yes Total Prolonged Care Time: 30 Coding Level of Care Code 86791 Inpt Consult Level 3 Diagnoses Palliative care encounter Z51.5 COPD (chronic obstructive pulmonary disease) J44.9 Aphasia R47.01 CVA (cerebral vascular accident) I63.9 Atrial fibrillation I48.91 Additional Codes Prolonged Care Time - Prolonged Care Time: Yes ([id number]) Time Spent (min) 100 Time Spent Midlevel Total time spent 100 minutes with > 50% of that time spent assessing the patient, discussing goals of care, and discussing with IDT Critical Care Time Prolonged Care Time Prolonged Care Time: Yes Total Prolonged Care Time: 30 100
[2020-04-10] MEDS: MULTIVITAMIN TAB PO SCH (09:56)
[2020-04-10] MEDS: UMECLIDINIUM/VILANTEROL 62.5/25MCG 7 PUFFS/INHALER INH SCH (09:56)
[2020-04-10] MEDS: LOSARTAN POTASSIUM 50 MG TAB PO SCH (09:57)
[2020-04-10] MEDS: QUETIAPINE FUMARATE 25 MG TABLET PO SCH ×3 (09:57→20:59)
[2020-04-10] MEDS: PANTOprazole 40 MG TAB PO SCH (09:57)
[2020-04-10] MEDS: AMLODIPINE BESYLATE 5 MG TAB PO SCH (09:57)
[2020-04-10] MEDS: FLUTICASONE FUROATE 100MCG 14 PUFFS/INHALER INH SCH (09:58)
[2020-04-10] MEDS: FLUOXETINE HCL 10 MG CAP PO SCH (09:58)
[2020-04-10 14:14] LABS: INR 2.9 (0.9-1.1); Prothrombin Time 28.5 Seconds (9.0-12.0)
[2020-04-10] MEDS ORDERED: ARTIFICIAL TEARS OP PRN (14:50)
--- NOTE | 2020-04-10 17:06 | Hospitalist Progress Note ---
Date of Service April 10, 2020 Assessment & Plan (1) Chest pain: Patient is an 84 yr male with H/O Chronic atrial fibrillation anticoagulated on warfarin, HTN, HLD, sick sinus syndrome status post pacer, COPD, severe aortic stenosis, history of CVA 1998 and a recent suffered a acute left parietal and occipital CVA on 03/29/2020 with resultant expressive and receptive aphasia. He presented to ED secondary to acute onset chest pain, shortness of breath and diaphoresis that occurred at 11 AM. Chest Pain Likely referred pain from Gall bladder Chest Pain resolved while in ED Also ACS can not be completely ruled out Mild Troponin elevation DD:Likely Type II [place] Vs ACS Refused ECHO or any other further investigations EKG showed ST-T wave changes Continue statin, losartan Currently has no chest pain Possible Acute Cholecystitis/Cholangitis Transaminitis Cholelithiasis/choledocholithiasis --CT ABD:Exam moderately compromised by motion artifact and lack of contrast. Distended gallbladder without pericholecystic infiltration. If suspicion for acute cholecystitis, a a right upper quadrant ultrasound could be obtained. No bowel obstruction. Colonic diverticulosis without evidence for acute diverticulitis. --Liver USD: Gallbladder distention with layering sludge and cholelithiasis. There is gallbladder wall thickening without appreciable pericholecystic fluid or edema. Findings are suspicious for acute cholecystitis. No biliary ductal dilation. There is however an echogenic shadowing focus within the common bile duct suggestive of choledocholithiasis. Initially started treating with IV antibiotics given difficulty with understanding patient's preference and lack of information on living Will Although has some expressive aphasia--patient stated "I DO NOT WANT TREATMENT " "I AM FINE" on atleast 2 occasions Appreciate Surgery /GI Input Ideally needs MRCP with or without ERCP and Cholecystectomy eventually including treatment with IV antibiotics. Despite extensive discussion regarding benefits of treatment and consequences on untreated, patient refused any further investigations or treatment Discussed with patient and his daughter-POA (Pedro) in detail including risks/complications/consequences of being not treated which could even result in deterioration of medical condition/ Daughter confirms patient's wishes not to move forward with further treatment including IV or Oral Antibiotics Living Will on file. Patient's POA prefers no blood draws for lab testing except for PT/INR checks Given Patient/Family wishes---Antibiotics are discontinued Patient/POA---understands and agrees with plan of care Palliative Care is consulted to address goals of care No distress on exam/Denies Pain Appreciate wound care input Tolerating regular diet Has been afebrile, no distress on exam Conservative management as per POA--given comorbidities (2) Elevated LFTs: Hold statin Management as above (3) Supratherapeutic INR: INR:4.1>>3.8>>2.9 Monitor INR No bleeding issues Resume Coumadin--1 MG today Dehydration Minimal rise in creatinine Received IV fluids (4) CVA (cerebral vascular accident): Left parietal and occipital CVA 03/29/2020 with resultant expressive and receptive aphasia On warfarin and statin Resume statin, coumadin Aspiration, fall precautions (5) Atrial fibrillation: S/P pacemaker Continue home medications On Coumadin for anticoagulation (6) Cardiac pacemaker in situ: Sick sinus syndrome status post pacemaker Pacemaker interrogation ordered (7) HTN (hypertension): Stable Continue amlodipine, losartan Resume HCTZ (8) COPD (chronic obstructive pulmonary disease): No acute exacerbation Continue Trelegy (9) Lung nodule < 6cm on CT: 4mm solid nodule RLL Solitary nodule size: <6 mm * Low risk patients: no follow-up needed * high risk patients: optional CT at 12 months Needs repeat imaging as outpatient if patient agrees (10) DVT prophylaxis: Coumadin Code Status DNI/DNR Disposition: Palliative care to address goals of care Case management consulted to help with discharge planning Admission and Anticipated Discharge Date Admission Date: April 08, 2020 Subjective Patient is seen and examined at bedside History is limited secondary to Aphasia Discussed with palliative care today " I AM FINE" No distress on abdominal exam Afebrile Tolerating regular diet Patient denies chest pain, SOB Review of Systems Review of Systems: Other Physical Exam Physical Exam: Physical Exam: Vitals signs as noted above General Appearance:Moderately built and nourished, no apparent distress Head: normocephalic, Atraumatic Eyes: normal inspection, EOMI Neck: supple, Trachea midline Respiratory/Chest: Normal breath sounds, CTA Cardiovascular: Irregularly irregular, + systolic murmur Abdomen/GI:Soft, Non tender, no guarding or rigidity, bowel sounds present Extremities/Musculoskelatal:normal inspection, no edema Neurologic/Psych: Alert, awake, oriented to person and place, expressive /receptive aphasia, grossly no other focal deficits Skin: normal color, warm Results & Data Results & Data ([facility]) Vital Signs (Past 12 Hours) Vital Signs Temp Pulse Pulse Resp BP Pulse Ox 04/10/20 14:57 36.9 C 73 16 162/79 H 93 04/10/20 14:20 61 04/10/20 10:49 37.0 C 58 L 16 131/63 95 04/10/20 08:03 36.9 C 61 16 167/84 H 96 04/10/20 07:00 55 L
[2020-04-10] MEDS: WARFARIN SOD 1 MG TAB PO SCH (17:37)
[2020-04-10] MEDS: ATORVASTATIN 40 MG TAB PO SCH (20:59)
[2020-04-11] MEDS: QUETIAPINE FUMARATE 25 MG TABLET PO SCH ×4 (07:57→20:45)
[2020-04-11] MEDS: PANTOprazole 40 MG TAB PO SCH ×2 (07:58→11:47)
[2020-04-11] MEDS: FLUOXETINE HCL 10 MG CAP PO SCH ×2 (07:58→11:48)
[2020-04-11] MEDS: AMLODIPINE BESYLATE 5 MG TAB PO SCH ×2 (07:58→11:47)
[2020-04-11] MEDS: MULTIVITAMIN TAB PO SCH ×2 (07:58→11:47)
[2020-04-11] MEDS: LOSARTAN POTASSIUM 50 MG TAB PO SCH ×2 (07:58→11:47)
[2020-04-11] MEDS: hydroCHLOROthiazide 25 MG TAB PO SCH ×2 (07:58→11:47)
[2020-04-11] MEDS: FLUTICASONE FUROATE 100MCG 14 PUFFS/INHALER INH SCH (07:59)
[2020-04-11] MEDS: UMECLIDINIUM/VILANTEROL 62.5/25MCG 7 PUFFS/INHALER INH SCH (07:59)
[2020-04-11 08:29] LABS: INR 2.2 (0.9-1.1); Prothrombin Time 22.5 Seconds (9.0-12.0)
--- NOTE | 2020-04-11 13:24 | Hospitalist Progress Note ---
Date of Service April 11, 2020 Assessment & Plan (1) Chest pain: Patient is an 84 yr male with H/O Chronic atrial fibrillation anticoagulated on warfarin, HTN, HLD, sick sinus syndrome status post pacer, COPD, severe aortic stenosis, history of CVA 1998 and a recent suffered a acute left parietal and occipital CVA on 03/29/2020 with resultant expressive and receptive aphasia. He presented to ED secondary to acute onset chest pain, shortness of breath and diaphoresis that occurred at 11 AM. Chest Pain Likely referred pain from Gall bladder Chest Pain resolved while in ED Doubt any ACS Mild Troponin elevation DD:Likely Type II [place] Vs ACS Refused ECHO or any other further investigations EKG showed ST-T wave changes Continue statin, losartan Remains free from any chest pain (2) Elevated LFTs: Possible Acute Cholecystitis/Cholangitis Transaminitis Cholelithiasis/choledocholithiasis --CT ABD:Exam moderately compromised by motion artifact and lack of contrast. Distended gallbladder without pericholecystic infiltration. If suspicion for acute cholecystitis, a a right upper quadrant ultrasound could be obtained. No bowel obstruction. Colonic diverticulosis without evidence for acute diverticulitis. --Liver USD: Gallbladder distention with layering sludge and cholelithiasis. There is gallbladder wall thickening without appreciable pericholecystic fluid or edema. Findings are suspicious for acute cholecystitis. No biliary ductal dilation. There is however an echogenic shadowing focus within the common bile duct suggestive of choledocholithiasis. Initially started treating with IV antibiotics given difficulty with unde rstanding patient's preference and lack of information on living Will Appreciate Surgery /GI Input Ideally needs MRCP with or without ERCP and Cholecystectomy eventually including treatment with IV antibiotics. Despite extensive discussion regarding benefits of treatment and consequences on untreated, patient refused any further investigations or treatment Discussed with patient and his daughter-POA (Pedro) in detail including risks/complications/consequences of being not treated which could even result in deterioration of medical condition/ Daughter confirms patient's wishes not to move forward with further treatment including IV or Oral Antibiotics Living Will on file. Patient's POA prefers no blood draws for lab testing except for PT/INR checks Given Patient/Family wishes---Antibiotics are discontinued Patient/POA---understands and agrees with plan of care Palliative Care is consulted to address goals of care No distress on exam/Denies Pain Appreciate wound care input Tolerating regular diet Has been afebrile, no distress on exam Conservative management as per POA--given comorbidities Hold statin Management as above (3) Supratherapeutic INR: INR:4.1>>3.8>>2.9 Monitor INR No bleeding issues Resume Coumadin--1 MG today Dehydration Minimal rise in creatinine Received IV fluids (4) CVA (cerebral vascular accident): Left parietal and occipital CVA 03/29/2020 with resultant expressive and receptive aphasia On warfarin and statin Resume statin, coumadin Aspiration, fall precautions (5) Atrial fibrillation: S/P pacemaker Continue home medications On Coumadin for anticoagulation Will continue for now (6) Cardiac pacemaker in situ: Sick sinus syndrome status post pacemaker Pacemaker interrogation ordered (7) HTN (hypertension): Stable Continue amlodipine, losartan Resume HCTZ (8) COPD (chronic obstructive pulmonary disease): No acute exacerbation Continue Trelegy (9) Lung nodule < 6cm on CT: 4mm solid nodule RLL Solitary nodule size: <6 mm * Low risk patients: no follow-up needed * high risk patients: optional CT at 12 months Needs repeat imaging as outpatient if patient agrees (10) DVT prophylaxis: Coumadin is being continued Code Status DNI/DNR Disposition: Palliative care to address goals of care Case management consulted to help with discharge planning Will likely need placement Admission and Anticipated Discharge Date Admission Date: April 08, 2020 Subjective 04/11/2020 Patient was seen and examined in medical telemetry unit in presence of the granddaughter He remains completely confused but without any acute distress Denies any chest pain, palpitation, shortness of breath, any abdominal pain, nausea and/or vomiting He has dysphasia both receptive and expressive Review of Systems Review of Systems: All systems reviewed and are unremarkable except as noted below Neurologic: + generalized weakness, + abnormal speech and + confusion Physical Exam Physical Exam: Lying in bed comfortably Constitutional: well developed and well nourished; no acute distress and not ill appearing Eyes: PERRL, conjunctivae normal, anicteric sclerae ENMT: external ear and nose normal, oropharynx normal Neck: trachea midline, no thyromegaly Respiratory: normal respiratory effort; no respiratory distress Auscultation: lungs clear to auscultation bilaterally Cardiovascular: Rate/Rhythm: + abnormal rate and + abnormal rhythm Heart Sounds: + murmur (2/6 to 3/6 ejection systolic murmur over precordium and aortic area) Gastrointestinal (Abdomen): Inspection/Auscultation: abdomen normal to inspection and normal bowel sounds; abdomen not distended Percussion/Palpation: abdomen soft Musculoskeletal: No acute arthritis involving any joints Neurologic: moves all extremities Has expressive and receptive dysphasia Psychiatric: Orientation: alert Insight: + poor insight Judgement: + poor judgement Lymphatic: no cervical or axillary lymphadenopathy Results & Data Results & Data ([facility]) Vital Signs (Past 12 Hours) Vital Signs Temp Pulse Resp BP BP Pulse Ox 04/11/20 11:00 36.5 C 54 L 18 153/77 H 97 04/11/20 07:00 36.3 C L 75 18 192/89 H 188/83 H 94 04/11/20 03:00 36.4 C L 55 L 18 120/62 96 Medications Administered Current Inpatient Medications Acetaminophen (Acetaminophen 325 Mg Tab) 650 mg PO Q4H PRN PRN Reason: Pain or Fever Stop: 05/07/20 16:34 Al Hydrox/Mg Hydrox/Simethicone (Aluminum/Magnesium Susp 30 Ml Udc) 15 ml PO Q4H PRN PRN Reason: Dyspepsia Stop: 05/07/20 16:34 Albuterol (Albuterol Hfa 8 Gm Inhaler (Combivent Respimat P&T Subs)) 1 puffs INH QIDR PRN PRN Reason: Wheezing Stop: 05/07/20 19:19 Amlodipine Besylate (Amlodipine Besylate 5 Mg Tab) 5 mg PO DAILY ADITYA Stop: 05/08/20 08:59 Last Admin: 04/11/20 11:47 Dose: Not Given Documented by: Artificial Tears (Artificial Tears) 2 drops OP BID PRN PRN Reason: Dryness Stop: 05/10/20 14:49 Atorvastatin Calcium (Atorvastatin 40 Mg Tab) 40 mg PO HS ADITYA Stop: 05/10/20 20:59 Last Admin: 04/10/20 20:59 Dose: 40 mg Documented by: Fluoxetine HCl (Fluoxetine Hcl 10 Mg Cap) 10 mg PO DAILY ADITYA Stop: 05/08/20 08:59 Last Admin: 04/11/20 11:48 Dose: Not Given Documented by: Fluticasone Furoate (Fluticasone Furoate 100mcg 14 Puffs/Inhaler) 1 puffs INH DAILY ADITYA Stop: 05/08/20 08:59 Last Admin: 04/11/20 07:59 Dose: 1 puffs Documented by: Hydrochlorothiazide (Hydrochlorothiazide 25 Mg Tab) 12.5 mg PO DAILY ADITYA Stop: 05/11/20 08:59 Last Admin: 04/11/20 11:47 Dose: Not Given Documented by: Ipratropium [place] (Ipratropium Hfa Inhaler (Combivent Respimat P&T Subs)) 1 puffs INH QIDR PRN PRN Reason: Wheezing Stop: 05/07/20 19:19 Losartan Potassium (Losartan Potassium 50 Mg Tab) 50 mg PO DAILY ADITYA Stop: 05/08/20 08:59 Last Admin: 04/11/20 11:47 Dose: Not Given Documented by: Magnesium Hydroxide (Magnesium Hydroxide Susp 30 Ml Udc) 30 ml PO Q12H PRN PRN Reason: Constipation Stop: 05/07/20 16:34 Morphine Sulfate (Morphine Sulfate 2 Mg/Ml [place]) 2 mg IV Q6H PRN PRN Reason: severe pain Stop: 04/21/20 16:34 Multivitamins (Multivitamin Tab) 1 tab PO DAILY ADITYA Stop: 05/08/20 08:59 Last Admin: 04/11/20 11:47 Dose: Not Given Documented by: Ondansetron HCl (Ondansetron Inj 2 Mg/Ml 2 Ml Vial) 4 mg IV Q6H PRN PRN Reason: Nausea Stop: 05/07/20 16:34 Pantoprazole Sodium (Pantoprazole 40 Mg Tab) 40 mg PO DAILY ADITYA Stop: 05/08/20 08:59 Last Admin: 04/11/20 11:47 Dose: Not Given Documented by: Polyethylene Glycol (Polyethylene (Miralax) 17 Gm Pack) 17 gm PO DAILY PRN PRN Reason: Constipation Stop: 05/07/20 16:34 Quetiapine Fumarate (Quetiapine Fumarate 25 Mg Tablet) 12.5 mg PO TID ADITYA Stop: 05/07/20 20:59 Last Admin: 04/11/20 12:18 Dose: Not Given Documented by: Umeclidinium/Vilanterol (Umeclidinium/Vilanterol 62.5/25mcg 7 Puffs/Inhaler) 1 puffs INH DAILY ADITYA Stop: 05/08/20 08:59 Last Admin: 04/11/20 07:59 Dose: 1 puffs Documented by: Warfarin Sodium (Warfarin Sod 1 Mg Tab) 1 mg PO DAILY@1600 ADITYA Stop: 05/10/20 15:59 Last Admin: 04/10/20 17:37 Dose: 1 mg Documented by:
[2020-04-11] MEDS: WARFARIN SOD 1 MG TAB PO SCH (16:23)
[2020-04-11] MEDS: ATORVASTATIN 40 MG TAB PO SCH (20:45)
[2020-04-12 06:40] LABS: Prothrombin Time 20.1 Seconds (9.0-12.0)
[2020-04-12] MEDS: FLUOXETINE HCL 10 MG CAP PO SCH (08:30)
[2020-04-12] MEDS: QUETIAPINE FUMARATE 25 MG TABLET PO SCH ×3 (08:30→20:37)
[2020-04-12] MEDS: hydroCHLOROthiazide 25 MG TAB PO SCH (08:31)
[2020-04-12] MEDS: LOSARTAN POTASSIUM 50 MG TAB PO SCH (08:31)
[2020-04-12] MEDS: AMLODIPINE BESYLATE 5 MG TAB PO SCH (08:32)
[2020-04-12] MEDS: MULTIVITAMIN TAB PO SCH (08:32)
[2020-04-12] MEDS: PANTOprazole 40 MG TAB PO SCH (08:32)
[2020-04-12] MEDS: UMECLIDINIUM/VILANTEROL 62.5/25MCG 7 PUFFS/INHALER INH SCH (08:33)
[2020-04-12] MEDS: FLUTICASONE FUROATE 100MCG 14 PUFFS/INHALER INH SCH (08:34)
--- NOTE | 2020-04-12 15:55 | Hospitalist Progress Note ---
Date of Service April 12, 2020 Assessment & Plan (1) Chest pain: Patient is an 84 yr male with H/O Chronic atrial fibrillation anticoagulated on warfarin, HTN, HLD, sick sinus syndrome status post pacer, COPD, severe aortic stenosis, history of CVA 1998 and a recent suffered a acute left parietal and occipital CVA on 03/29/2020 with resultant expressive and receptive aphasia. He presented to ED secondary to acute onset chest pain, shortness of breath and diaphoresis that occurred at 11 AM. Chest Pain Likely referred pain from Gall bladder Chest Pain resolved while in ED Doubt any ACS Mild Troponin elevation DD:Likely Type II ND Vs ACS Refused ECHO or any other further investigations EKG showed ST-T wave changes Remains free from any chest pain (2) Elevated LFTs: Possible Acute Cholecystitis/Cholangitis Transaminitis Cholelithiasis/choledocholithiasis --CT ABD:Exam moderately compromised by motion artifact and lack of contrast. Distended gallbladder without pericholecystic infiltration. If suspicion for acute cholecystitis, a a right upper quadrant ultrasound could be obtained. No bowel obstruction. Colonic diverticulosis without evidence for acute diverticulitis. --Liver USD: Gallbladder distention with layering sludge and cholelithiasis. There is gallbladder wall thickening without appreciable pericholecystic fluid or edema. Findings are suspicious for acute cholecystitis. No biliary ductal dilation. There is however an echogenic shadowing focus within the common bile duct suggestive of choledocholithiasis. Initially started treating with IV antibiotics given difficulty with understanding patient's preference and lack of information on living Will Appreciate Surgery /GI Input Ideally needs MRCP with or without ERCP and Cholecystectomy eventually including treatment with IV antibiotics. Despite extensive discussion regarding benefits of treatment and consequences on untreated, patient refused any further investigations or treatment Discussed with patient and his daughter-POA (Pedro) in detail including risks/complications/consequences of being not treated which could even result in deterioration of medical condition/ Daughter confirms patient's wishes not to move forward with further treatment including IV or Oral Antibiotics Living Will on file. Patient's POA prefers no blood draws for lab testing except for PT/INR checks Given Patient/Family wishes---Antibiotics are discontinued Patient/POA---understands and agrees with plan of care Palliative Care is consulted to address goals of care No distress on exam/Denies Pain Appreciate wound care input Tolerating regular diet Has been afebrile, no distress on exam Conservative management as per POA--given comorbidities Hold statin Management as above (3) Supratherapeutic INR: INR:4.1>>3.8>>2.9 Monitor INR No bleeding issues Resume Coumadin--1 MG today We will check lab tomorrow Dehydration Minimal rise in creatinine Received IV fluids (4) CVA (cerebral vascular accident): Left parietal and occipital CVA 03/29/2020 with resultant expressive and receptive aphasia On warfarin and statin Resume statin, coumadin Aspiration, fall precautions (5) Atrial fibrillation: S/P pacemaker Continue home medications On Coumadin for anticoagulation Will continue for now (6) Cardiac pacemaker in situ: Sick sinus syndrome status post pacemaker Pacemaker interrogation ordered (7) HTN (hypertension): Stable Continue amlodipine, losartan Resume HCTZ (8) COPD (chronic obstructive pulmonary disease): No acute exacerbation Continue Trelegy (9) Lung nodule < 6cm on CT: 4mm solid nodule RLL Solitary nodule size: <6 mm * Low risk patients: no follow-up needed * high risk patients: optional CT at 12 months Needs repeat imaging as outpatient if patient agrees (10) DVT prophylaxis: Coumadin is being continued Code Status DNI/DNR Disposition: Palliative care to address goals of care Case management consulted to help with discharge planning Discussed with the daughter and the are trying to get 24-hour help at home Patient still wants to go home and like to be discharged tomorrow Admission and Anticipated Discharge Date Admission Date: April 08, 2020 Subjective 04/11/2020 Patient was seen and examined in medical telemetry unit in presence of the granddaughter He remains completely confused but without any acute distress Denies any chest pain, palpitation, shortness of breath, any abdominal pain, nausea and/or vomiting He has dysphasia both receptive and expressive 04/12/2020 The patient was seen and examined in medical telemetry unit He remains stable and denies any acute symptoms He wants to go home Review of Systems Review of Systems: All systems reviewed and are unremarkable except as noted below Neurologic: + generalized weakness, + abnormal speech and + confusion Physical Exam Physical Exam: Lying in bed comfortably Constitutional: well developed and well nourished; no acute distress and not ill appearing Eyes: PERRL, conjunctivae normal, anicteric sclerae ENMT: external ear and nose normal, oropharynx normal Neck: trachea midline, no thyromegaly Respiratory: normal respiratory effort; no respiratory distress Auscultation: lungs clear to auscultation bilaterally Cardiovascular: Rate/Rhythm: + abnormal rate and + abnormal rhythm Heart Sounds: + murmur (2/6 to 3/6 ejection systolic murmur over precordium and aortic area) Gastrointestinal (Abdomen): Inspection/Auscultation: abdomen normal to inspection and normal bowel sounds; abdomen not distended Percussion/Palpation: abdomen soft Musculoskeletal: No acute arthritis in any joints Neurologic: moves all extremities Psychiatric: Orientation: alert Insight: + poor insight Judgement: + poor judgement Lymphatic: no cervical or axillary lymphadenopathy Results & Data Results & Data ([facility]) Vital Signs (Past 12 Hours) Vital Signs Temp Pulse Pulse Resp BP BP Pulse Ox 04/12/20 15:50 37.0 C 62 20 128/74 96 04/12/20 12:09 36.7 C 62 18 149/80 H 98 04/12/20 07:25 55 L 04/12/20 07:13 36.9 C 51 L 18 159/75 H 97 04/12/20 04:00 37.1 C 54 L 18 159/85 H 97 Medications Administered Current Inpatient Medications Acetaminophen (Acetaminophen 325 Mg Tab) 650 mg PO Q4H PRN PRN Reason: Pain or Fever Stop: 05/07/20 16:34 Al Hydrox/Mg Hydrox/Simethicone (Aluminum/Magnesium Susp 30 Ml Udc) 15 ml PO Q4H PRN PRN Reason: Dyspepsia Stop: 05/07/20 16:34 Albuterol (Albuterol Hfa 8 Gm Inhaler (Combivent Respimat P&T Subs)) 1 puffs INH QIDR PRN PRN Reason: Wheezing Stop: 05/07/20 19:19 Amlodipine Besylate (Amlodipine Besylate 5 Mg Tab) 5 mg PO DAILY [facility] Stop: 05/08/20 08:59 Last Admin: 04/12/20 08:32 Dose: 5 mg Documented by: Artificial Tears (Artificial Tears) 2 drops OP BID PRN PRN Reason: Dryness Stop: 05/10/20 14:49 Atorvastatin Calcium (Atorvastatin 40 Mg Tab) 40 mg PO HS [facility] Stop: 05/10/20 20:59 Last Admin: 04/11/20 20:45 Dose: 40 mg Documented by: Fluoxetine HCl (Fluoxetine Hcl 10 Mg Cap) 10 mg PO DAILY [facility] Stop: 05/08/20 08:59 Last Admin: 04/12/20 08:30 Dose: 10 mg Documented by: Fluticasone Furoate (Fluticasone Furoate 100mcg 14 Puffs/Inhaler) 1 puffs INH DAILY [facility] Stop: 05/08/20 08:59 Last Admin: 04/12/20 08:34 Dose: 1 puffs Documented by: Hydrochlorothiazide (Hydrochlorothiazide 25 Mg Tab) 12.5 mg PO DAILY [facility] Stop: 05/11/20 08:59 Last Admin: 04/12/20 08:31 Dose: 12.5 mg Documented by: Ipratropium [place] (Ipratropium Hfa Inhaler (Combivent Respimat P&T Subs)) 1 puffs INH QIDR PRN PRN Reason: Wheezing Stop: 05/07/20 19:19 Losartan Potassium (Losartan Potassium 50 Mg Tab) 50 mg PO DAILY [facility] Stop: 05/08/20 08:59 Last Admin: 04/12/20 08:31 Dose: 50 mg Documented by: Magnesium Hydroxide (Magnesium Hydroxide Susp 30 Ml Udc) 30 ml PO Q12H PRN PRN Reason: Constipation Stop: 05/07/20 16:34 Morphine Sulfate (Morphine Sulfate 2 Mg/Ml Carp) 2 mg IV Q6H PRN PRN Reason: severe pain Stop: 04/21/20 16:34 Multivitamins (Multivitamin Tab) 1 tab PO DAILY [facility] Stop: 05/08/20 08:59 Last Admin: 04/12/20 08:32 Dose: 1 tab Documented by: Ondansetron HCl (Ondansetron Inj 2 Mg/Ml 2 Ml Vial) 4 mg IV Q6H PRN PRN Reason: Nausea Stop: 05/07/20 16:34 Pantoprazole Sodium (Pantoprazole 40 Mg Tab) 40 mg PO DAILY [facility] Stop: 05/08/20 08:59 Last Admin: 04/12/20 08:32 Dose: 40 mg Documented by: Polyethylene Glycol (Polyethylene (Miralax) 17 Gm Pack) 17 gm PO DAILY PRN PRN Reason: Constipation Stop: 05/07/20 16:34 Quetiapine Fumarate (Quetiapine Fumarate 25 Mg Tablet) 12.5 mg PO TID [facility] Stop: 05/07/20 20:59 Last Admin: 04/12/20 14:13 Dose: 12.5 mg Documented by: Umeclidinium/Vilanterol (Umeclidinium/Vilanterol 62.5/25mcg 7 Puffs/Inhaler) 1 puffs INH DAILY [facility] Stop: 05/08/20 08:59 Last Admin: 04/12/20 08:33 Dose: 1 puffs Documented by: Warfarin Sodium (Warfarin Sod 1 Mg Tab) 1 mg PO DAILY@1600 [facility] Stop: 05/10/20 15:59 Last Admin: 04/11/20 16:23 Dose: 1 mg Documented by:
[2020-04-12] MEDS: WARFARIN SOD 1 MG TAB PO SCH (16:26)
[2020-04-12] MEDS: ATORVASTATIN 40 MG TAB PO SCH (20:37)
[2020-04-13 07:57] LABS: INR 1.7 (0.9-1.1); Prothrombin Time 17.3 Seconds (9.0-12.0)
[2020-04-13 08:00] LABS: Basophils # (auto) 0.02 K/uL (0-0.2); Basophils % (auto) 0.3 %; Eosinophils # (auto) 0.23 K/uL (0-0.5); Eosinophils % (auto) 3.2 %; Hematocrit (blood only) 39.9 % (42-52); Hemoglobin 13.5 g/dL (14.0-18.0); Immature Granulocytes # (auto) 0.06 K/uL (0.00-0.02); Immature Granulocytes % (auto) 0.8 %; Lymphocytes # (auto) 1.46 K/uL (1.2-3.4); Lymphocytes % (auto) 20.3 %; Mean Corpuscular Hemoglobin 31.6 pg (25-34); Mean Corpuscular Hgb Conc 33.8 g/dL (32-36); Mean Corpuscular Volume 93.4 fL (80-100); Mean Platelet Volume 9.8 fL (7.4-10.4); Monocytes # (auto) 0.55 K/uL (0.11-0.59); Monocytes % (auto) 7.6 %; Neutrophils # (auto) 4.88 K/uL (1.4-6.5); Neutrophils % (auto) 67.8 %; Platelet Count 267 K/uL (130-400); RDW Coefficient of Variation 12.8 % (11.5-14.5); RDW Standard Deviation 43.4 fL (36.4-46.3); Red Blood Count 4.27 M/uL (4.7-6.1)
[2020-04-13 08:09] LABS: Albumin Level 3.1 gm/dl (3.4-5.0); BUN Creatinine Ratio 12.9 (10-20); Calcium 9.6 mg/dl (8.5-10.1); Creatinine Clr Calc Pharmacy 49.4 ml/min; Est GFR (African American) 67.4; Est GFR (Non-African American) 58.1; Potassium 3.8 mmol/L (3.5-5.1)
[2020-04-13 08:12] LABS: Albumin Globulin Ratio 0.9 (0.9-2); Bilirubin,Total 1.1 mg/dl (0.2-1); Globulin 3.4 gm/dl (2.5-4.0); Total Protein 6.5 gm/dl (6.4-8.2)
[2020-04-13] MEDS: FLUOXETINE HCL 10 MG CAP PO SCH (10:12)
[2020-04-13] MEDS: AMLODIPINE BESYLATE 5 MG TAB PO SCH (10:12)
[2020-04-13] MEDS: hydroCHLOROthiazide 25 MG TAB PO SCH (10:12)
[2020-04-13] MEDS: PANTOprazole 40 MG TAB PO SCH (10:12)
[2020-04-13] MEDS: UMECLIDINIUM/VILANTEROL 62.5/25MCG 7 PUFFS/INHALER INH SCH (10:12)
[2020-04-13] MEDS: MULTIVITAMIN TAB PO SCH (10:13)
[2020-04-13] MEDS: FLUTICASONE FUROATE 100MCG 14 PUFFS/INHALER INH SCH (10:13)
[2020-04-13] MEDS: LOSARTAN POTASSIUM 50 MG TAB PO SCH (10:13)
[2020-04-13] MEDS: QUETIAPINE FUMARATE 25 MG TABLET PO SCH ×3 (10:13→20:10)
[2020-04-13] MEDS: WARFARIN SOD 1 MG TAB PO SCH (15:55)
--- NOTE | 2020-04-13 16:45 | Hospitalist Progress Note ---
Date of Service April 13, 2020 Assessment & Plan (1) CVA (cerebral vascular accident): Left parietal and occipital CVA 03/29/2020 with resultant expressive and receptive aphasia On warfarin and statin Resume statin, coumadin Aspiration, fall precautions Continues to have dysphasia and cognitive impairment from stroke The family members are trying to get 24-hour help at home Patient wants to go home desperately (2) Chest pain: Patient is an 84 yr male with H/O Chronic atrial fibrillation anticoagulated on warfarin, HTN, HLD, sick sinus syndrome status post pacer, COPD, severe aortic stenosis, history of CVA 1998 and a recent suffered a acute left parietal and occipital CVA on 03/29/2020 with resultant expressive and receptive aphasia. He presented to ED secondary to acute onset chest pain, shortness of breath and diaphoresis that occurred at 11 AM. Chest Pain Likely referred pain from Gall bladder Chest Pain resolved while in ED Doubt any ACS Mild Troponin elevation DD:Likely Type II OK Vs ACS Refused ECHO or any other further investigations EKG showed ST-T wave changes Remains free from any chest pain (3) Elevated LFTs: Possible Acute Cholecystitis/Cholangitis Transaminitis Cholelithiasis/choledocholithiasis --CT ABD:Exam moderately compromised by motion artifact and lack of contrast. Distended gallbladder without pericholecystic infiltration. If suspicion for acute cholecystitis, a a right upper quadrant ultrasound could be obtained. No bowel obstruction. Colonic diverticulosis without evidence for acute diverticulitis. --Liver USD: Gallbladder distention with layering sludge and cholelithiasis. There is gallbladder wall thickening without appreciable pericholecystic fluid or edema. Findings are suspicious for acute cholecystitis. No biliary ductal dilation. There is however an echogenic shadowing focus within the common bile duct suggestive of choledocholithiasis. Initially started treating with IV antibiotics given difficulty with understanding patient's preference and lack of information on living Will Appreciate Surgery /GI Input Ideally needs MRCP with or without ERCP and Cholecystectomy eventually including treatment with IV antibiotics. Despite extensive discussion regarding benefits of treatment and consequences on untreated, patient refused any further investigations or treatment Discussed with patient and his daughter-POA (Pedro) in detail including risks/complications/consequences of being not treated which could even result in deterioration of medical condition/ Daughter confirms patient's wishes not to move forward with further treatment including IV or Oral Antibiotics Living Will on file. Patient's POA prefers no blood draws for lab testing except for PT/INR checks Given Patient/Family wishes---Antibiotics are discontinued Patient/POA---understands and agrees with plan of care Palliative Care is consulted to address goals of care No distress on exam/Denies Pain Appreciate wound care input Tolerating regular diet Has been afebrile, no distress on exam Conservative management as per POA--given comorbidities Please repeat blood test including CBC and comprehensive metabolic panel shows significant improvement (4) Supratherapeutic INR: INR:4.1>>3.8>>2.9 Monitor INR No bleeding issues Resume Coumadin--1 MG today We will check lab tomorrow-remains at 1.7 Dehydration Minimal rise in creatinine Received IV fluids (5) Atrial fibrillation: S/P pacemaker Continue home medications On Coumadin for anticoagulation Will continue for now Remains stable will transfer to medical floor (6) Cardiac pacemaker in situ: Sick sinus syndrome status post pacemaker Pacemaker interrogation ordered (7) HTN (hypertension): Stable Continue amlodipine, losartan Resume HCTZ (8) COPD (chronic obstructive pulmonary disease): No acute exacerbation Continue Trelegy (9) Lung nodule < 6cm on CT: 4mm solid nodule RLL Solitary nodule size: <6 mm * Low risk patients: no follow-up needed * high risk patients: optional CT at 12 months Needs repeat imaging as outpatient if patient agrees (10) DVT prophylaxis: Coumadin is being continued Code Status DNI/DNR Disposition: Palliative care to address goals of care Case management consulted to help with discharge planning Discussed with the daughter and the are trying to get 24-hour help at home Awaiting to get 24 hours help at home Admission and Anticipated Discharge Date Admission Date: April 08, 2020 Subjective 04/11/2020 Patient was seen and examined in medical telemetry unit in presence of the granddaughter He remains completely confused but without any acute distress Denies any chest pain, palpitation, shortness of breath, any abdominal pain, nausea and/or vomiting He has dysphasia both receptive and expressive 04/12/2020 The patient was seen and examined in medical telemetry unit He remains stable and denies any acute symptoms He wants to go home 04/13/2020 The patient was seen and examined in medical telemetry unit He remains stable without any acute symptoms and wants to go home Review of Systems Review of Systems: All systems reviewed and are unremarkable except as noted below Neurologic: + generalized weakness, + abnormal speech and + confusion Physical Exam Physical Exam: Lying in bed comfortably Constitutional: well developed and well nourished; no acute distress and not ill appearing Eyes: PERRL, conjunctivae normal, anicteric sclerae ENMT: external ear and nose normal, oropharynx normal Neck: trachea midline, no thyromegaly Respiratory: normal respiratory effort; no respiratory distress Auscultation: lungs clear to auscultation bilaterally Cardiovascular: Rate/Rhythm: + abnormal rate and + abnormal rhythm Heart Sounds: + murmur (2/6 to 3/6 ejection systolic murmur over precordium and aortic area) Gastrointestinal (Abdomen): Inspection/Auscultation: abdomen normal to inspection and normal bowel sounds; abdomen not distended Percussion/Palpation: abdomen soft Neurologic: moves all extremities Psychiatric: Orientation: alert Insight: + poor insight Judgement: + poor judgement Lymphatic: no cervical or axillary lymphadenopathy Results & Data Results & Data ([facility]) Vital Signs (Past 12 Hours) Vital Signs Temp Pulse Resp BP Pulse Ox 04/13/20 15:19 36.9 C 62 19 160/79 H 96 04/13/20 12:23 37.1 C 62 20 150/84 H 97 04/13/20 08:10 37.2 C 56 L 16 133/76 96 Laboratory Results Short CBC 04/13/20 Range/Units 07:39 WBC 7.20 (4.8-10.8) K/uL Hgb 13.5 L (14.0-18.0) g/dL Hct 39.9 L (42-52) % Plt Count 267 (130-400) K/uL BMP 04/13/20 07:39 Sodium 140 Potassium 3.8 Chloride 107 Carbon Dioxide 27 BUN 15 Creatinine 1.15 Glucose 104 H Calcium 9.6 Liver Function 04/13/20 Range/Units 07:39 Total Bilirubin 1.1 H (0.2-1) mg/dl AST 25 (15-37) U/L ALT 70 (12-78) U/L Alkaline Phosphatase 95 (45-117) U/L Albumin 3.1 L (3.4-5.0) gm/dl Medications Administered Current Inpatient Medications Acetaminophen (Acetaminophen 325 Mg Tab) 650 mg PO Q4H PRN PRN Reason: Pain or Fever Stop: 05/07/20 16:34 Al Hydrox/Mg Hydrox/Simethicone (Aluminum/Magnesium Susp 30 Ml Udc) 15 ml PO Q4H PRN PRN Reason: Dyspepsia Stop: 05/07/20 16:34 Albuterol (Albuterol Hfa 8 Gm Inhaler (Combivent Respimat P&T Subs)) 1 puffs INH QIDR PRN PRN Reason: Wheezing Stop: 05/07/20 19:19 Amlodipine Besylate (Amlodipine Besylate 5 Mg Tab) 5 mg PO DAILY [facility] Stop: 05/08/20 08:59 Last Admin: 04/13/20 10:12 Dose: 5 mg Documented by: Artificial Tears (Artificial Tears) 2 drops OP BID PRN PRN Reason: Dryness Stop: 05/10/20 14:49 Atorvastatin Calcium (Atorvastatin 40 Mg Tab) 40 mg PO HS [facility] Stop: 05/10/20 20:59 Last Admin: 04/12/20 20:37 Dose: 40 mg Documented by: Fluoxetine HCl (Fluoxetine Hcl 10 Mg Cap) 10 mg PO DAILY [facility] Stop: 05/08/20 08:59 Last Admin: 04/13/20 10:12 Dose: 10 mg Documented by: Fluticasone Furoate (Fluticasone Furoate 100mcg 14 Puffs/Inhaler) 1 puffs INH DAILY [facility] Stop: 05/08/20 08:59 Last Admin: 04/13/20 10:13 Dose: 1 puffs Documented by: Hydrochlorothiazide (Hydrochlorothiazide 25 Mg Tab) 12.5 mg PO DAILY [facility] Stop: 05/11/20 08:59 Last Admin: 04/13/20 10:12 Dose: 12.5 mg Documented by: Ipratropium [place] (Ipratropium Hfa Inhaler (Combivent Respimat P&T Subs)) 1 puffs INH QIDR PRN PRN Reason: Wheezing Stop: 05/07/20 19:19 Losartan Potassium (Losartan Potassium 50 Mg Tab) 50 mg PO DAILY [facility] Stop: 05/08/20 08:59 Last Admin: 04/13/20 10:13 Dose: 50 mg Documented by: Magnesium Hydroxide (Magnesium Hydroxide Susp 30 Ml Udc) 30 ml PO Q12H PRN PRN Reason: Constipation Stop: 05/07/20 16:34 Morphine Sulfate (Morphine Sulfate 2 Mg/Ml Carp) 2 mg IV Q6H PRN PRN Reason: severe pain Stop: 04/21/20 16:34 Multivitamins (Multivitamin Tab) 1 tab PO DAILY [facility] Stop: 05/08/20 08:59 Last Admin: 04/13/20 10:13 Dose: 1 tab Documented by: Ondansetron HCl (Ondansetron Inj 2 Mg/Ml 2 Ml Vial) 4 mg IV Q6H PRN PRN Reason: Nausea Stop: 05/07/20 16:34 Pantoprazole Sodium (Pantoprazole 40 Mg Tab) 40 mg PO DAILY [facility] Stop: 05/08/20 08:59 Last Admin: 04/13/20 10:12 Dose: 40 mg Documented by: Polyethylene Glycol (Polyethylene (Miralax) 17 Gm Pack) 17 gm PO DAILY PRN PRN Reason: Constipation Stop: 05/07/20 16:34 Quetiapine Fumarate (Quetiapine Fumarate 25 Mg Tablet) 12.5 mg PO TID [facility] Stop: 05/07/20 20:59 Last Admin: 04/13/20 14:32 Dose: Not Given Documented by: Umeclidinium/Vilanterol (Umeclidinium/Vilanterol 62.5/25mcg 7 Puffs/Inhaler) 1 puffs INH DAILY [facility] Stop: 05/08/20 08:59 Last Admin: 04/13/20 10:12 Dose: 1 puffs Documented by: Warfarin Sodium (Warfarin Sod 1 Mg Tab) 1 mg PO DAILY@1600 [facility] Stop: 05/10/20 15:59 Last Admin: 04/13/20 15:55 Dose: 1 mg Documented by:
[2020-04-13] MEDS: ATORVASTATIN 40 MG TAB PO SCH (20:10)
[2020-04-14] MEDS: QUETIAPINE FUMARATE 25 MG TABLET PO SCH ×3 (08:43→21:55)
[2020-04-14] MEDS: LOSARTAN POTASSIUM 50 MG TAB PO SCH (08:44)
[2020-04-14] MEDS: AMLODIPINE BESYLATE 5 MG TAB PO SCH (08:45)
[2020-04-14] MEDS: PANTOprazole 40 MG TAB PO SCH (08:45)
[2020-04-14] MEDS: MULTIVITAMIN TAB PO SCH (08:45)
[2020-04-14] MEDS: FLUOXETINE HCL 10 MG CAP PO SCH (08:45)
[2020-04-14] MEDS: hydroCHLOROthiazide 25 MG TAB PO SCH (08:46)
[2020-04-14] MEDS: UMECLIDINIUM/VILANTEROL 62.5/25MCG 7 PUFFS/INHALER INH SCH (08:47)
[2020-04-14] MEDS: FLUTICASONE FUROATE 100MCG 14 PUFFS/INHALER INH SCH (08:47)
--- NOTE | 2020-04-14 14:30 | Hospitalist Progress Note ---
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 He presented to ED secondary to acute onset chest pain, shortness of breath and diaphoresis that occurred at 11 AM. Chest Pain Likely referred pain from Gall bladder Chest Pain resolved while in ED Doubt any ACS Mild Troponin elevation DD:Likely Type II [place] Vs ACS Refused ECHO or any other further investigations EKG showed ST-T wave changes Remains free from any chest pain (3) Elevated LFTs: Possible Acute Cholecystitis/Cholangitis Transaminitis Cholelithiasis/choledocholithiasis --CT ABD:Exam moderately compromised by motion artifact and lack of contrast. Distended gallbladder without pericholecystic infiltration. If suspicion for acute cholecystitis, a a right upper quadrant ultrasound could be obtained. No bowel obstruction. Colonic diverticulosis without evidence for acute diverticulitis. --Liver USD: Gallbladder distention with layering sludge and cholelithiasis. There is gallbladder wall thickening without appreciable pericholecystic fluid or edema. Findings are suspicious for acute cholecystitis. No biliary ductal dilation. There is however an echogenic shadowing focus within the common bile duct suggestive of choledocholithiasis. Initially started treating with IV antibiotics given difficulty with understanding patient's preference and lack of information on living Will Appreciate Surgery /GI Input Ideally needs MRCP with or without ERCP and Cholecystectomy eventually including treatment with IV antibiotics. Despite extensive discussion regarding benefits of treatment and consequences on untreated, patient refused any further investigations or treatment Discussed with patient and his daughter-POA (Pedro) in detail including risks/complications/consequences of being not treated which could even result in deterioration of medical condition/ Daughter confirms patient's wishes not to move forward with further treatment including IV or Oral Antibiotics Living Will on file. Patient's POA prefers no blood draws for lab testing except for PT/INR checks Given Patient/Family wishes---Antibiotics are discontinued Patient/POA---understands and agrees with plan of care Palliative Care is consulted to address goals of care No distress on exam/Denies Pain Appreciate wound care input Tolerating regular diet Has been afebrile, no distress on exam Conservative management as per POA--given comorbidities Please repeat blood test including CBC and comprehensive metabolic panel shows significant improvement Ongoing and/or worsening infection (4) Supratherapeutic INR: INR:4.1>>3.8>>2.9 Monitor INR No bleeding issues Resume Coumadin--1 MG today We will check lab tomorrow-remains at 1.7 Dehydration Minimal rise in creatinine Received IV fluids (5) Atrial fibrillation: S/P pacemaker Continue home medications On Coumadin for anticoagulation Will continue for now Remains stable will transfer to medical floor (6) Cardiac pacemaker in situ: Sick sinus syndrome status post pacemaker Pacemaker interrogation ordered (7) HTN (hypertension): Stable Continue amlodipine, losartan Resume HCTZ (8) COPD (chronic obstructive pulmonary disease): No acute exacerbation Continue Trelegy (9) Lung nodule < 6cm on CT: 4mm solid nodule RLL Solitary nodule size: <6 mm * Low risk patients: no follow-up needed * high risk patients: optional CT at 12 months Needs repeat imaging as outpatient if patient agrees (10) DVT prophylaxis: Coumadin is being continued Code Status DNI/DNR Disposition: Palliative care to address goals of care Case management consulted to help with discharge planning Discussed with the daughter and the are trying to get 24-hour help at home Awaiting to get 24 hours help at home Admission and Anticipated Discharge Date Admission Date: April 08, 2020 Subjective 04/11/2020 Patient was seen and examined in medical telemetry unit in presence of the granddaughter He remains completely confused but without any acute distress Denies any chest pain, palpitation, shortness of breath, any abdominal pain, nausea and/or vomiting He has dysphasia both receptive and expressive 04/12/2020 The patient was seen and examined in medical telemetry unit He remains stable and denies any acute symptoms He wants to go home 04/13/2020 The patient was seen and examined in medical telemetry unit He remains stable without any acute symptoms and wants to go home 04/14/2020 The patient was seen and examined in medical unit He has been stable and pleasantly confused Wants to go home Review of Systems Review of Systems: All systems reviewed and are unremarkable except as noted below Neurologic: + generalized weakness, + abnormal speech and + confusion Physical Exam Physical Exam: Lying in bed comfortably Constitutional: well developed and well nourished; no acute distress and not ill appearing Eyes: PERRL, conjunctivae normal, anicteric sclerae ENMT: external ear and nose normal, oropharynx normal Neck: trachea midline, no thyromegaly Respiratory: normal respiratory effort; no respiratory distress Auscultation: lungs clear to auscultation bilaterally Cardiovascular: Rate/Rhythm: + abnormal rate and + abnormal rhythm Heart Sounds: + murmur (2/6 to 3/6 ejection systolic murmur over precordium and aortic area) Gastrointestinal (Abdomen): Inspection/Auscultation: abdomen normal to inspection and normal bowel sounds; abdomen not distended Percussion/Palpation: abdomen soft Neurologic: moves all extremities Has dysphasia and is pleasantly confused Psychiatric: Orientation: alert Insight: + poor insight Judgement: + poor judgement Lymphatic: no cervical or axillary lymphadenopathy Results & Data Results & Data ([facility]) Vital Signs (Past 12 Hours) Vital Signs Temp Pulse Resp BP Pulse Ox 04/14/20 08:00 37.0 C 57 L 16 139/80 97 Medications Administered Current Inpatient Medications Acetaminophen (Acetaminophen 325 Mg Tab) 650 mg PO Q4H PRN PRN Reason: Pain or Fever Stop: 05/07/20 16:34 Al Hydrox/Mg Hydrox/Simethicone (Aluminum/Magnesium Susp 30 Ml Udc) 15 ml PO Q4H PRN PRN Reason: Dyspepsia Stop: 05/07/20 16:34 Albuterol (Albuterol Hfa 8 Gm Inhaler (Combivent Respimat P&T Subs)) 1 puffs INH QIDR PRN PRN Reason: Wheezing Stop: 05/07/20 19:19 Amlodipine Besylate (Amlodipine Besylate 5 Mg Tab) 5 mg PO DAILY [facility] Stop: 05/08/20 08:59 Last Admin: 04/14/20 08:45 Dose: 5 mg Documented by: Artificial Tears (Artificial Tears) 2 drops OP BID PRN PRN Reason: Dryness Stop: 05/10/20 14:49 Atorvastatin Calcium (Atorvastatin 40 Mg Tab) 40 mg PO HS [facility] Stop: 05/10/20 20:59 Last Admin: 04/13/20 20:10 Dose: 40 mg Documented by: Fluoxetine HCl (Fluoxetine Hcl 10 Mg Cap) 10 mg PO DAILY [facility] Stop: 05/08/20 08:59 Last Admin: 04/14/20 08:45 Dose: 10 mg Documented by: Fluticasone Furoate (Fluticasone Furoate 100mcg 14 Puffs/Inhaler) 1 puffs INH DAILY [facility] Stop: 05/08/20 08:59 Last Admin: 04/14/20 08:47 Dose: 1 puffs Documented by: Hydrochlorothiazide (Hydrochlorothiazide 25 Mg Tab) 12.5 mg PO DAILY [facility] Stop: 05/11/20 08:59 Last Admin: 04/14/20 08:46 Dose: 12.5 mg Documented by: Ipratropium [place] (Ipratropium Hfa Inhaler (Combivent Respimat P&T Subs)) 1 puffs INH QIDR PRN PRN Reason: Wheezing Stop: 05/07/20 19:19 Losartan Potassium (Losartan Potassium 50 Mg Tab) 50 mg PO DAILY [facility] Stop: 05/08/20 08:59 Last Admin: 04/14/20 08:44 Dose: 50 mg Documented by: Magnesium Hydroxide (Magnesium Hydroxide Susp 30 Ml Udc) 30 ml PO Q12H PRN PRN Reason: Constipation Stop: 05/07/20 16:34 Morphine Sulfate (Morphine Sulfate 2 Mg/Ml Carp) 2 mg IV Q6H PRN PRN Reason: severe pain Stop: 04/21/20 16:34 Multivitamins (Multivitamin Tab) 1 tab PO DAILY [facility]A Stop: 05/08/20 08:59 Last Admin: 04/14/20 08:45 Dose: 1 tab Documented by: Ondansetron HCl (Ondansetron Inj 2 Mg/Ml 2 Ml Vial) 4 mg IV Q6H PRN PRN Reason: Nausea Stop: 05/07/20 16:34 Pantoprazole Sodium (Pantoprazole 40 Mg Tab) 40 mg PO DAILY [facility] Stop: 05/08/20 08:59 Last Admin: 04/14/20 08:45 Dose: 40 mg Documented by: Polyethylene Glycol (Polyethylene (Miralax) 17 Gm Pack) 17 gm PO DAILY PRN PRN Reason: Constipation Stop: 05/07/20 16:34 Quetiapine Fumarate (Quetiapine Fumarate 25 Mg Tablet) 12.5 mg PO TID [facility] Stop: 05/07/20 20:59 Last Admin: 04/14/20 08:43 Dose: 12.5 mg Documented by: Umeclidinium/Vilanterol (Umeclidinium/Vilanterol 62.5/25mcg 7 Puffs/Inhaler) 1 puffs INH DAILY [facility] Stop: 05/08/20 08:59 Last Admin: 04/14/20 08:47 Dose: 1 puffs Documented by: Warfarin Sodium (Warfarin Sod 1 Mg Tab) 1 mg PO DAILY@1600 [facility] Stop: 05/10/20 15:59 Last Admin: 04/13/20 15:55 Dose: 1 mg Documented by:
[2020-04-14] MEDS: WARFARIN SOD 1 MG TAB PO SCH (15:13)
[2020-04-14] MEDS: ATORVASTATIN 40 MG TAB PO SCH (21:55)
[2020-04-15] MEDS: hydroCHLOROthiazide 25 MG TAB PO SCH (08:42)
[2020-04-15] MEDS: AMLODIPINE BESYLATE 5 MG TAB PO SCH (08:43)
[2020-04-15] MEDS: PANTOprazole 40 MG TAB PO SCH (08:43)
[2020-04-15] MEDS: LOSARTAN POTASSIUM 50 MG TAB PO SCH (08:43)
[2020-04-15] MEDS: QUETIAPINE FUMARATE 25 MG TABLET PO SCH ×3 (08:44→20:20)
[2020-04-15] MEDS: MULTIVITAMIN TAB PO SCH (08:44)
[2020-04-15] MEDS: UMECLIDINIUM/VILANTEROL 62.5/25MCG 7 PUFFS/INHALER INH SCH (08:45)
[2020-04-15] MEDS: FLUTICASONE FUROATE 100MCG 14 PUFFS/INHALER INH SCH (08:45)
[2020-04-15] MEDS: FLUOXETINE HCL 10 MG CAP PO SCH (08:45)
[2020-04-15 09:57] LABS: INR 1.4 (0.9-1.1); Prothrombin Time 14.6 Seconds (9.0-12.0)
--- NOTE | 2020-04-15 15:53 | Hospitalist Progress Note ---
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 The family members are trying to get 24-hour help at home Patient wants to go home desperately No new and/or worsening symptoms Remains pleasantly confused wants to go home and nobody else Family members have been trying to get more help at home Likely discharged on Friday (2) Chest pain: Patient is an 84 yr male with H/O Chronic atrial fibrillation anticoagulated on warfarin, HTN, HLD, sick sinus syndrome status post pacer, COPD, severe aortic stenosis, history of CVA 1998 and a recent suffered a acute left parietal and occipital CVA on 03/29/2020 with resultant expressive and receptive aphasia. He presented to ED secondary to acute onset chest pain, shortness of breath and diaphoresis that occurred at 11 AM. Chest Pain Likely referred pain from Gall bladder Chest Pain resolved while in ED Doubt any ACS Mild Troponin elevation DD:Likely Type II [place] Vs ACS Refused ECHO or any other further investigations EKG showed ST-T wave changes Remains free from any chest pain (3) Elevated LFTs: Possible Acute Cholecystitis/Cholangitis Transaminitis Cholelithiasis/choledocholithiasis --CT ABD:Exam moderately compromised by motion artifact and lack of contrast. Distended gallbladder without pericholecystic infiltration. If suspicion for acute cholecystitis, a a right upper quadrant ultrasound could be obtained. No bowel obstruction. Colonic diverticulosis without evidence for acute diverticulitis. --Liver USD: Gallbladder distention with layering sludge and cholelithiasis. There is gallbladder wall thickening without appreciable pericholecystic fluid or edema. Findings are suspicious for acute cholecystitis. No biliary ductal dilation. There is however an echogenic shadowing focus within the common bile duct suggestive of choledocholithiasis. Initially started treating with IV antibiotics given difficulty with understanding patient's preference and lack of information on living Will Appreciate Surgery /GI Input Ideally needs MRCP with or without ERCP and Cholecystectomy eventually including treatment with IV antibiotics. Despite extensive discussion regarding benefits of treatment and consequences on untreated, patient refused any further investigations or treatment Discussed with patient and his daughter-POA (Pedro) in detail including risks /complications/consequences of being not treated which could even result in deterioration of medical condition/ Daughter confirms patient's wishes not to move forward with further treatment including IV or Oral Antibiotics Living Will on file. Patient's POA prefers no blood draws for lab testing except for PT/INR checks Given Patient/Family wishes---Antibiotics are discontinued Patient/POA---understands and agrees with plan of care Palliative Care is consulted to address goals of care No distress on exam/Denies Pain Appreciate wound care input Tolerating regular diet Has been afebrile, no distress on exam Conservative management as per POA--given comorbidities Please repeat blood test including CBC and comprehensive metabolic panel shows significant improvement Ongoing and/or worsening infection (4) Supratherapeutic INR: INR:4.1>>3.8>>2.9 Monitor INR No bleeding issues Resume Coumadin--1 MG today We will check lab tomorrow-remains at 1.7 Dehydration Minimal rise in creatinine Received IV fluids (5) Atrial fibrillation: S/P pacemaker Continue home medications On Coumadin for anticoagulation Will continue for now Remains stable will transfer to medical floor (6) Cardiac pacemaker in situ: Sick sinus syndrome status post pacemaker Pacemaker interrogation ordered (7) HTN (hypertension): Stable Continue amlodipine, losartan Resume HCTZ (8) COPD (chronic obstructive pulmonary disease): No acute exacerbation Continue Trelegy (9) Lung nodule < 6cm on CT: 4mm solid nodule RLL Solitary nodule size: <6 mm * Low risk patients: no follow-up needed * high risk patients: optional CT at 12 months Needs repeat imaging as outpatient if patient agrees (10) DVT prophylaxis: Coumadin is being continued Code Status DNI/DNR Disposition: Palliative care to address goals of care Case management consulted to help with discharge planning Discussed with the daughter and the are trying to get 24-hour help at home Awaiting to get 24 hours help at home Admission and Anticipated Discharge Date Admission Date: April 08, 2020 Subjective 04/11/2020 Patient was seen and examined in medical telemetry unit in presence of the granddaughter He remains completely confused but without any acute distress Denies any chest pain, palpitation, shortness of breath, any abdominal pain, nausea and/or vomiting He has dysphasia both receptive and expressive 04/12/2020 The patient was seen and examined in medical telemetry unit He remains stable and denies any acute symptoms He wants to go home 04/13/2020 The patient was seen and examined in medical telemetry unit He remains stable without any acute symptoms and wants to go home 04/14/2020 The patient was seen and examined in medical unit He has been stable and pleasantly confused Wants to go home 04/15/2020 The patient was seen and examined in medical unit He has been pleasantly confused and denies any other symptoms He is adamant that he will go home Review of Systems Review of Systems: All systems reviewed and are unremarkable except as noted below Neurologic: + generalized weakness, + abnormal speech and + confusion Physical Exam Physical Exam: Lying in bed comfortably Constitutional: well developed and well nourished; no acute distress and not ill appearing Eyes: PERRL, conjunctivae normal, anicteric sclerae ENMT: external ear and nose normal, oropharynx normal Neck: trachea midline, no thyromegaly Respiratory: normal respiratory effort; no respiratory distress Auscultation: lungs clear to auscultation bilaterally Cardiovascular: Rate/Rhythm: + abnormal rate and + abnormal rhythm Heart Sounds: + murmur (2/6 to 3/6 ejection systolic murmur over precordium and aortic area) Gastrointestinal (Abdomen): Inspection/Auscultation: abdomen normal to inspection and normal bowel sounds; abdomen not distended Percussion/Palpation: abdomen soft Neurologic: moves all extremities and + confused Speech / Cognition: + abnormal speech (Has dysarthria) Psychiatric: Orientation: alert Insight: + poor insight Judgement: + poor judgement Lymphatic: no cervical or axillary lymphadenopathy Results & Data Results & Data ([facility]) Vital Signs (Past 12 Hours) Vital Signs Temp Pulse Resp BP Pulse Ox 04/15/20 15:26 37.0 C 56 L 16 134/81 97 04/15/20 07:28 37.2 C 64 16 148/77 H 96 Medications Administered Current Inpatient Medications Acetaminophen (Acetaminophen 325 Mg Tab) 650 mg PO Q4H PRN PRN Reason: Pain or Fever Stop: 05/07/20 16:34 Al Hydrox/Mg Hydrox/Simethicone (Aluminum/Magnesium Susp 30 Ml Udc) 15 ml PO Q4H PRN PRN Reason: Dyspepsia Stop: 05/07/20 16:34 Albuterol (Albuterol Hfa 8 Gm Inhaler (Combivent Respimat P&T Subs)) 1 puffs INH QIDR PRN PRN Reason: Wheezing Stop: 05/07/20 19:19 Amlodipine Besylate (Amlodipine Besylate 5 Mg Tab) 5 mg PO DAILY [facility] Stop: 05/08/20 08:59 Last Admin: 04/15/20 08:43 Dose: 5 mg Documented by: Artificial Tears (Artificial Tears) 2 drops OP BID PRN PRN Reason: Dryness Stop: 05/10/20 14:49 Atorvastatin Calcium (Atorvastatin 40 Mg Tab) 40 mg PO HS [facility] Stop: 05/10/20 20:59 Last Admin: 04/14/20 21:55 Dose: 40 mg Documented by: Fluoxetine HCl (Fluoxetine Hcl 10 Mg Cap) 10 mg PO DAILY [facility] Stop: 05/08/20 08:59 Last Admin: 04/15/20 08:45 Dose: 10 mg Documented by: Fluticasone Furoate (Fluticasone Furoate 100mcg 14 Puffs/Inhaler) 1 puffs INH DAILY [facility] Stop: 05/08/20 08:59 Last Admin: 04/15/20 08:45 Dose: 1 puffs Documented by: Hydrochlorothiazide (Hydrochlorothiazide 25 Mg Tab) 12.5 mg PO DAILY [facility] Stop: 05/11/20 08:59 Last Admin: 04/15/20 08:42 Dose: 12.5 mg Documented by: Ipratropium [place] (Ipratropium Hfa Inhaler (Combivent Respimat P&T Subs)) 1 puffs INH QIDR PRN PRN Reason: Wheezing Stop: 05/07/20 19:19 Losartan Potassium (Losartan Potassium 50 Mg Tab) 50 mg PO DAILY [facility] Stop: 05/08/20 08:59 Last Admin: 04/15/20 08:43 Dose: 50 mg Documented by: Magnesium Hydroxide (Magnesium Hydroxide Susp 30 Ml Udc) 30 ml PO Q12H PRN PRN Reason: Constipation Stop: 05/07/20 16:34 Morphine Sulfate (Morphine Sulfate 2 Mg/Ml Carp) 2 mg IV Q6H PRN PRN Reason: severe pain Stop: 04/21/20 16:34 Multivitamins (Multivitamin Tab) 1 tab PO DAILY [facility] Stop: 05/08/20 08:59 Last Admin: 04/15/20 08:44 Dose: 1 tab Documented by: Ondansetron HCl (Ondansetron Inj 2 Mg/Ml 2 Ml Vial) 4 mg IV Q6H PRN PRN Reason: Nausea Stop: 05/07/20 16:34 Pantoprazole Sodium (Pantoprazole 40 Mg Tab) 40 mg PO DAILY [facility] Stop: 05/08/20 08:59 Last Admin: 04/15/20 08:43 Dose: 40 mg Documented by: Polyethylene Glycol (Polyethylene (Miralax) 17 Gm Pack) 17 gm PO DAILY PRN PRN Reason: Constipation Stop: 05/07/20 16:34 Quetiapine Fumarate (Quetiapine Fumarate 25 Mg Tablet) 12.5 mg PO TID [facility] Stop: 05/07/20 20:59 Last Admin: 04/15/20 14:27 Dose: 12.5 mg Documented by: Umeclidinium/Vilanterol (Umeclidinium/Vilanterol 62.5/25mcg 7 Puffs/Inhaler) 1 puffs INH DAILY [facility] Stop: 05/08/20 08:59 Last Admin: 04/15/20 08:45 Dose: 1 puffs Documented by: Warfarin Sodium (Warfarin Sod 1 Mg Tab) 1 mg PO DAILY@1600 [facility] Stop: 05/10/20 15:59 Last Admin: 04/14/20 15:13 Dose: 1 mg Documented by:
[2020-04-15] MEDS: WARFARIN SOD 1 MG TAB PO SCH (16:29)
[2020-04-15] MEDS: ATORVASTATIN 40 MG TAB PO SCH (20:20)
[2020-04-16] MEDS: QUETIAPINE FUMARATE 25 MG TABLET PO SCH ×3 (08:06→20:04)
[2020-04-16] MEDS: MULTIVITAMIN TAB PO SCH (08:06)
[2020-04-16] MEDS: LOSARTAN POTASSIUM 50 MG TAB PO SCH (08:07)
[2020-04-16] MEDS: AMLODIPINE BESYLATE 5 MG TAB PO SCH (08:07)
[2020-04-16] MEDS: FLUOXETINE HCL 10 MG CAP PO SCH (08:07)
[2020-04-16] MEDS: hydroCHLOROthiazide 25 MG TAB PO SCH (08:07)
[2020-04-16] MEDS: UMECLIDINIUM/VILANTEROL 62.5/25MCG 7 PUFFS/INHALER INH SCH (08:08)
[2020-04-16] MEDS: FLUTICASONE FUROATE 100MCG 14 PUFFS/INHALER INH SCH (08:08)
[2020-04-16] MEDS: PANTOprazole 40 MG TAB PO SCH (08:08)
[2020-04-16 09:00] LABS: Basophils # (auto) 0.02 K/uL (0-0.2); Basophils % (auto) 0.2 %; Eosinophils # (auto) 0.24 K/uL (0-0.5); Eosinophils % (auto) 2.7 %; Hematocrit (blood only) 43.1 % (42-52); Hemoglobin 14.8 g/dL (14.0-18.0); Immature Granulocytes # (auto) 0.09 K/uL (0.00-0.02); Lymphocytes # (auto) 1.92 K/uL (1.2-3.4); Lymphocytes % (auto) 21.9 %; Mean Corpuscular Hemoglobin 32.5 pg (25-34); Mean Corpuscular Hgb Conc 34.3 g/dL (32-36); Mean Corpuscular Volume 94.7 fL (80-100); Mean Platelet Volume 9.9 fL (7.4-10.4); Monocytes # (auto) 0.62 K/uL (0.11-0.59); Monocytes % (auto) 7.1 %; Neutrophils # (auto) 5.87 K/uL (1.4-6.5); Neutrophils % (auto) 67.1 %; Platelet Count 330 K/uL (130-400); RDW Standard Deviation 44.7 fL (36.4-46.3); Red Blood Count 4.55 M/uL (4.7-6.1); White Blood Count 8.76 K/uL (4.8-10.8)
[2020-04-16 09:12] LABS: INR 1.4 (0.9-1.1); Prothrombin Time 14.4 Seconds (9.0-12.0)
[2020-04-16 09:17] LABS: Albumin Level 3.5 gm/dl (3.4-5.0); BUN Creatinine Ratio 13.5 (10-20); Calcium 9.6 mg/dl (8.5-10.1); Creatinine Clr Calc Pharmacy 44.4 ml/min; Est GFR (African American) 59.2; Est GFR (Non-African American) 51.1; Potassium 3.8 mmol/L (3.5-5.1)
[2020-04-16 09:20] LABS: Bilirubin,Total 1.1 mg/dl (0.2-1); Globulin 3.6 gm/dl (2.5-4.0); Phosphorus 3.2 mg/dl (2.5-4.9); Total Protein 7.1 gm/dl (6.4-8.2)
--- NOTE | 2020-04-16 09:29 | CT Scan Report ---
CT head/brain wo con CLINICAL HISTORY: Acute stroke like symptoms COMPARISON STUDY: 04/07/2020 TECHNIQUE: Axial CT of the brain is performed from the vertex to the skull base. IV contrast was not administered for this examination. A dose lowering technique was utilized adhering to the principles of ALARA. CT DOSE: 1375.95 mGy.cm FINDINGS: No intra or extra-axial mass lesions are visualized. There is no CT evidence of acute cortical infarc tion. There is no evidence of midline shift. There is no acute hemorrhage. No calvarial fractures ar e visualized. There are patchy white matter hypodensities likely on a small vessel basis. There is no evidence of pathologic ventricular dilatation. There is equivocal increased cortical density involving the left temporal occipital region. Areas of laminar necrosis cannot be excluded. There is an old left occipital infarct. There is no acute sinusitis. There is a stable calcified vessel within the right sylvian fissure region. IMPRESSION: 1. Equivocal increased cortical density involving the left temporal occipital region. Areas of lamina r necrosis cannot be excluded 2. If symptoms persist, an MRI could be obtained in follow-up. ACT 112: Negative or not required by law. Electronically signed by: Fabien Mcbride M.D. 04/16/2020 9:27 AM
--- NOTE | 2020-04-16 09:56 | Electrocardiogram Report ---
Test Reason : Blood Pressure : / mmHG Vent. Rate : 059 BPM Atrial Rate : 066 BPM P-R Int : 000 ms QRS Dur : 162 ms QT Int : 484 ms P-R-T Axes : 000 -79 095 degrees QTc Int : 479 ms Ventricular-paced rhythm Abnormal ECG When compared with ECG of 07-APR-2020 12:53, Electronic ventricular pacemaker has replaced Atrial fibrillation Confirmed by Neto Reid ([id number] on 04/16/2020 9:56:24 AM Referred By: REFERRED SELF Confirmed By:Hank Reid
--- NOTE | 2020-04-16 10:04 | Hospitalist Progress Note ---
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 An MRI of the brain was suggested After long discussion with the family members and answering all of their questions the patient was put under comfort care only. Pain and anxiety medications as needed Medications to dry out secretions and oxygen as needed (2) Chest pain: Patient is an 84 yr male with H/O Chronic atrial fibrillation anticoagulated on warfarin, HTN, HLD, sick sinus syndrome status post pacer, COPD, severe aortic stenosis, history of CVA 1998 and a recent suffered a acute left parietal and occipital CVA on 03/29/2020 with resultant expressive and receptive aphasia. He presented to ED secondary to acute onset chest pain, shortness of breath and diaphoresis that occurred at 11 AM. Chest Pain Likely referred pain from Gall bladder Chest Pain resolved while in ED Doubt any ACS Mild Troponin elevation DD:Likely Type II [place] Vs ACS Refused ECHO or any other further investigations EKG showed ST-T wave changes Remains free from any chest pain He remains in paced rhythm (3) Elevated LFTs: Possible Acute Cholecystitis/Cholangitis Transaminitis Cholelithiasis/choledocholithiasis --CT ABD:Exam moderately compromised by motion artifact and lack of contrast. Distended gallbladder without pericholecystic infiltration. If suspicion for acute cholecystitis, a a right upper quadrant ultrasound could be obtained. No bowel obstruction. Colonic diverticulosis without evidence for acute diverticulitis. --Liver USD: Gallbladder distention with layering sludge and cholelithiasis. There is gallbladder wall thickening without appreciable pericholecystic fluid or edema. Findings are suspicious for acute cholecystitis. No biliary ductal dilation. There is however an echogenic shadowing focus within the common bile duct suggestive of choledocholithiasis. Initially started treating with IV antibiotics given difficulty with understanding patient's preference and lack of information on living Will Appreciate Surgery /GI Input Ideally needs MRCP with or without ERCP and Cholecystectomy eventually including treatment with IV antibiotics. Despite extensive discussion regarding benefits of treatment and consequences on untreated, patient refused any further investigations or treatment Discussed with patient and his daughter-POA (Pedro) in detail including risks/complications/consequences of being not treated which could even result in deterioration of medical condition/ Daughter confirms patient's wishes not to move forward with further treatment including IV or Oral Antibiotics Living Will on file. Patient's POA prefers no blood draws for lab testing except for PT/INR checks Given Patient/Family wishes---Antibiotics are discontinued Patient/POA---understands and agrees with plan of care Palliative Care is consulted to address goals of care No distress on exam/Denies Pain Appreciate wound care input Tolerating regular diet Has been afebrile, no distress on exam Conservative management as per POA--given comorbidities Please repeat blood test including CBC and comprehensive metabolic panel shows significant improvement Ongoing and/or worsening infection (4) Supratherapeutic INR: INR:4.1>>3.8>>2.9 Monitor INR No bleeding issues Resume Coumadin--1 MG Planned to continue Coumadin on a small dose INR on 04/16/2020-1.4 Dehydration Minimal rise in creatinine Received IV fluids (5) Atrial fibrillation: S/P pacemaker Continue home medications On Coumadin for anticoagulation Will continue for now Remains stable will transfer to medical floor (6) Cardiac pacemaker in situ: Sick sinus syndrome status post pacemaker Pacemaker interrogation ordered (7) HTN (hypertension): Stable Continue amlodipine, losartan Resume HCTZ (8) COPD (chronic obstructive pulmonary disease): No acute exacerbation Continue Trelegy (9) Lung nodule < 6cm on CT: 4mm solid nodule RLL Solitary nodule size: <6 mm * Low risk patients: no follow-up needed * high risk patients: optional CT at 12 months Needs repeat imaging as outpatient if patient agrees (10) DVT prophylaxis: Coumadin is being continued Code Status DNI/DNR Disposition: Palliative care to address goals of care Case management consulted to help with discharge planning Discussed with the daughter and the are trying to get 24-hour help at home Condition got worse since this morning Repeat CT scan did show increased cortical density involving the left temporal occipital region Discussed with the daughter and she will be here soon Admission and Anticipated Discharge Date Admission Date: April 08, 2020 Subjective 04/11/2020 Patient was seen and examined in medical telemetry unit in presence of the granddaughter He remains completely confused but without any acute distress Denies any chest pain, palpitation, shortness of breath, any abdominal pain, nausea and/or vomiting He has dysphasia both receptive and expressive 04/12/2020 The patient was seen and examined in medical telemetry unit He remains stable and denies any acute symptoms He wants to go home 04/13/2020 The patient was seen and examined in medical telemetry unit He remains stable without any acute symptoms and wants to go home 04/14/2020 The patient was seen and examined in medical unit He has been stable and pleasantly confused Wants to go home 04/15/2020 The patient was seen and examined in medical unit He has been pleasantly confused and denies any other symptoms He is adamant that he will go home 04/16/2020 The patient was seen and examined in medical unit He was noted to be very lethargic this morning and not been talking He has not been moving his right side and did not take his medications and eat his breakfast this morning 04/16/2020: 1146 hrs. Has had a long discussion with 6 of the family members Discussed about progression of stroke and the consequent deterioration of the patient The daughters did not want to have treatment of any sort as per his wish in the past and wanted to have comfort care only for him He did not want to have any feeding tube, antibiotic, any life-sustaining medication but wanted to take medication that will keep him comfortable After confirming again about comfort care the patient was put under comfort care only. All of his essential medications were discontinued. Review of Systems Review of Systems: All systems reviewed and are unremarkable except as noted below Neurologic: + generalized weakness, + abnormal speech and + confusion Very lethargic and has been moving the right side Physical Exam Physical Exam: Remains very lethargic since this morning Constitutional: well developed, well nourished and + altered mental status; no acute distress and not ill appearing Eyes: PERRL, conjunctivae normal, anicteric sclerae ENMT: external ear and nose normal, oropharynx normal Neck: trachea midline, no thyromegaly Respiratory: normal respiratory effort; no respiratory distress Auscultation: lungs clear to auscultation bilaterally and + diminished lung sounds Cardiovascular: Rate/Rhythm: + abnormal rate and + abnormal rhythm Heart Sounds: + murmur (2/6 to 3/6 ejection systolic murmur over precordium and aortic area) Gastrointestinal (Abdomen): Inspection/Auscultation: abdomen normal to inspection and normal bowel sounds; abdomen not distended Percussi on/Palpation: abdomen soft Musculoskeletal: No acute arthritis involving any joint Neurologic: + focal motor deficit (Has been moving the right side mostly in the upper extremity) and + confused Speech / Cognition: + abnormal speech (Has dysarthria) Remains very lethargic. Squeezing hands with the left upper extremity but not to the right. No facial droop Psychiatric: Orientation: alert Insight: + poor insight Judgement: + poor judgement Lymphatic: no cervical or axillary lymphadenopathy Results & Data Results & Data ([facility]) Vital Signs (Past 12 Hours) Vital Signs Temp Pulse Resp BP Pulse Ox 04/16/20 06:54 36.5 C 59 L 20 152/76 H 95 04/15/20 23:36 36.6 C 52 L 20 136/74 97 Laboratory Results Short CBC 04/16/20 Range/Units 08:41 WBC 8.76 (4.8-10.8) K/uL Hgb 14.8 (14.0-18.0) g/dL Hct 43.1 (42-52) % Plt Count 330 (130-400) K/uL BMP 04/16/20 08:41 Sodium 138 Potassium 3.8 Chloride 105 Carbon Dioxide 28 BUN 17 Creatinine 1.28 Glucose 127 H Calcium 9.6 Liver Function 04/16/20 Range/Units 08:41 Total Bilirubin 1.1 H (0.2-1) mg/dl AST 27 (15-37) U/L ALT 49 (12-78) U/L Alkaline Phosphatase 97 (45-117) U/L Albumin 3.5 (3.4-5.0) gm/dl Medications Administered Current Inpatient Medications Acetaminophen (Acetaminophen 325 Mg Tab) 650 mg PO Q4H PRN PRN Reason: Pain or Fever Stop: 05/07/20 16:34 Al Hydrox/Mg Hydrox/Simethicone (Aluminum/Magnesium Susp 30 Ml Udc) 15 ml PO Q4H PRN PRN Reason: Dyspepsia Stop: 05/07/20 16:34 Albuterol (Albuterol Hfa 8 Gm Inhaler (Combivent Respimat P&T Subs)) 1 puffs INH QIDR PRN PRN Reason: Wheezing Stop: 05/07/20 19:19 Amlodipine Besylate (Amlodipine Besylate 5 Mg Tab) 5 mg PO DAILY ADITYA Stop: 05/08/20 08:59 Last Admin: 04/16/20 08:07 Dose: 5 mg Documented by: Artificial Tears (Artificial Tears) 2 drops OP BID PRN PRN Reason: Dryness Stop: 05/10/20 14:49 Atorvastatin Calcium (Atorvastatin 40 Mg Tab) 40 mg PO HS ADITYA Stop: 05/10/20 20:59 Last Admin: 04/15/20 20:20 Dose: 40 mg Documented by: Fluoxetine HCl (Fluoxetine Hcl 10 Mg Cap) 10 mg PO DAILY ADITYA Stop: 05/08/20 08:59 Last Admin: 04/16/20 08:07 Dose: 10 mg Documented by: Fluticasone Furoate (Fluticasone Furoate 100mcg 14 Puffs/Inhaler) 1 puffs INH DAILY ADITYA Stop: 05/08/20 08:59 Last Admin: 04/16/20 08:08 Dose: 1 puffs Documented by: Hydrochlorothiazide (Hydrochlorothiazide 25 Mg Tab) 12.5 mg PO DAILY ADITYA Stop: 05/11/20 08:59 Last Admin: 04/16/20 08:07 Dose: 12.5 mg Documented by: Ipratropium [place] (Ipratropium Hfa Inhaler (Combivent Respimat P&T Subs)) 1 puffs INH QIDR PRN PRN Reason: Wheezing Stop: 05/07/20 19:19 Losartan Potassium (Losartan Potassium 50 Mg Tab) 50 mg PO DAILY ADITYA Stop: 05/08/20 08:59 Last Admin: 04/16/20 08:07 Dose: 50 mg Documented by: Magnesium Hydroxide (Magnesium Hydroxide Susp 30 Ml Udc) 30 ml PO Q12H PRN PRN Reason: Constipation Stop: 05/07/20 16:34 Morphine Sulfate (Morphine Sulfate 2 Mg/Ml Carp) 2 mg IV Q6H PRN PRN Reason: severe pain Stop: 04/21/20 16:34 Multivitamins (Multivitamin Tab) 1 tab PO DAILY ADITYA Stop: 05/08/20 08:59 Last Admin: 04/16/20 08:06 Dose: 1 tab Documented by: Ondansetron HCl (Ondansetron Inj 2 Mg/Ml 2 Ml Vial) 4 mg IV Q6H PRN PRN Reason: Nausea Stop: 05/07/20 16:34 Pantoprazole Sodium (Pantoprazole 40 Mg Tab) 40 mg PO DAILY COUNTS INCLUDE 234 BEDS AT THE [facility] Stop: 05/08/20 08:59 Last Admin: 04/16/20 08:08 Dose: 40 mg Documented by: Polyethylene Glycol (Polyethylene (Miralax) 17 Gm Pack) 17 gm PO DAILY PRN PRN Reason: Constipation Stop: 05/07/20 16:34 Quetiapine Fumarate (Quetiapine Fumarate 25 Mg Tablet) 12.5 mg PO TID COUNTS INCLUDE 234 BEDS AT THE [facility] Stop: 05/07/20 20:59 Last Admin: 04/16/20 08:06 Dose: 12.5 mg Documented by: Umeclidinium/Vilanterol (Umeclidinium/Vilanterol 62.5/25mcg 7 Puffs/Inhaler) 1 puffs INH DAILY ADITYA Stop: 05/08/20 08:59 Last Admin: 04/16/20 08:08 Dose: 1 puffs Documented by: Warfarin Sodium (Warfarin Sod 1 Mg Tab) 1 mg PO DAILY@1600 COUNTS INCLUDE 234 BEDS AT THE [facility] Stop: 05/10/20 15:59 Last Admin: 04/15/20 16:29 Dose: 1 mg Documented by:
[2020-04-16] MEDS ORDERED: ONDANSETRON 4 MG OD TAB SL PRN (11:51)
[2020-04-16] MEDS ORDERED: haloperidoL 1 MG TAB PO PRN (11:51)
[2020-04-16] MEDS ORDERED: LORazepam 0.5 MG TAB PO PRN (11:51)
[2020-04-16] MEDS: ATROPINE SULFATE 1% OP SOLN 2 ML BTL SL PRN ×2 (12:48→21:56)
[2020-04-16] MEDS: WARFARIN SOD 1 MG TAB PO SCH (15:20)
[2020-04-16] MEDS: MoRPHine SULFATE 5 MG/0.25 ML UDP PO PRN (18:33)
[2020-04-16] MEDS ORDERED: MoRPHine SULFATE 2 MG/ML CARP IV PRN (19:01)
[2020-04-16] MEDS: LORazepam 1 MG/2 ML VIAL IV PRN (19:58)
[2020-04-16] MEDS: ATORVASTATIN 40 MG TAB PO SCH (20:04)
[2020-04-17] MEDS: MoRPHine SULFATE 5 MG/0.25 ML UDP PO PRN ×2 (00:29→23:47)
[2020-04-17 07:18] LABS: INR 1.2 (0.9-1.1); Prothrombin Time 12.7 Seconds (9.0-12.0)
[2020-04-17] MEDS: FLUTICASONE FUROATE 100MCG 14 PUFFS/INHALER INH SCH (08:10)
[2020-04-17] MEDS: ATROPINE SULFATE 1% OP SOLN 2 ML BTL SL PRN (08:42)
--- NOTE | 2020-04-17 11:26 | Hospitalist Progress Note ---
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 An MRI of the brain was suggested After long discussion with the family members and answering all of their questions the patient was put under comfort careonly. Pain and anxiety medications as needed Medications to dry out secretions and oxygen as needed (2) Chest pain: Patient is an 84 yr male with H/O Chronic atrial fibrillation anticoagulated on warfarin, HTN, HLD, sick sinus syndrome status post pacer, COPD, severe aortic stenosis, history of CVA 1998 and a recent suffered a acute left parietal and occipital CVA on 03/29/2020 with resultant expressive and receptive aphasia. He presented to ED secondary to acute onset chest pain, shortness of breath and diaphoresis that occurred at 11 AM. Chest Pain Likely referred pain from Gall bladder Chest Pain resolved while in ED Doubt any ACS Mild Troponin elevation DD:Likely Type II [place] Vs ACS Refused ECHO or any other further investigations EKG showed ST-T wave changes Remains free from any chest pain He remains in paced rhythm (3) Elevated LFTs: Possible Acute Cholecystitis/Cholangitis Transaminitis Cholelithiasis/choledocholithiasis --CT ABD:Exam moderately compromised by motion artifact and lack of contrast. Distended gallbladder without pericholecystic infiltration. If suspicion for acute cholecystitis, a a right upper quadrant ultrasound could be obtained. No bowel obstruction. Colonic diverticulosis without evidence for acute diverticulitis. --Liver USD: Gallbladder distention with layering sludge and cholelithiasis. There is gallbladder wall thickening without appreciable pericholecystic fluid or edema. Findings are suspicious for acute cholecystitis. No biliary ductal dilation. There is however an echogenic shadowing focus within the common bile duct suggestive of choledocholithiasis. Initially started treating with IV antibiotics given difficulty with understanding patient's preference and lack of information on living Will Appreciate Surgery /GI Input Ideally needs MRCP with or without ERCP and Cholecystectomy eventually including treatment with IV antibiotics. Despite extensive discussion regarding benefits of treatment and consequences on untreated, patient refused any further investigations or treatment Discussed with patient and his daughter-POA (Pedro) in detail including risks/complications/consequences of being not treated which could even result in deterioration of medical condition/ Daughter confirms patient's wishes not to move forward with further treatment including IV or Oral Antibiotics Living Will on file. Patient's POA prefers no blood draws for lab testing except for PT/INR checks Given Patient/Family wishes---Antibiotics are discontinued Patient/POA---understands and agrees with plan of care Palliative Care is consulted to address goals of care No distress on exam/Denies Pain Appreciate wound care input Tolerating regular diet Has been afebrile, no distress on exam Conservative management as per POA--given comorbidities Please repeat blood test including CBC and comprehensive metabolic panel shows significant improvement Ongoing and/or worsening infection (4) Supratherapeutic INR: INR:4.1>>3.8>>2.9 Monitor INR No bleeding issues Resume Coumadin--1 MG Planned to continue Coumadin on a small dose INR on 04/16/2020-1.4 Dehydration Minimal rise in creatinine Received IV fluids (5) Atrial fibrillation: S/P pacemaker Continue home medications On Coumadin for anticoagulation Will continue for now Remains stable will transfer to medical floor (6) Cardiac pacemaker in situ: Sick sinus syndrome status post pacemaker Pacemaker interrogation ordered (7) HTN (hypertension): Stable Continue amlodipine, losartan Resume HCTZ (8) COPD (chronic obstructive pulmonary disease): No acute exacerbation Continue Trelegy (9) Lung nodule < 6cm on CT: 4mm solid nodule RLL Solitary nodule size: <6 mm * Low risk patients: no follow-up needed * high risk patients: optional CT at 12 months Needs repeat imaging as outpatient if patient agrees (10) DVT prophylaxis: Coumadin is being continued Code Status DNI/DNR Disposition: Palliative care to address goals of care Case management consulted to help with discharge planning Discussed with the daughter and the are trying to get 24-hour help at home Condition got worse since this morning Repeat CT scan did show increased cortical density involving the left temporal occipital region Discussed with the daughter and she will be here soon Admission and Anticipated Discharge Date Admission Date: April 08, 2020 Subjective 04/11/2020 Patient was seen and examined in medical telemetry unit in presence of the granddaughter He remains completely confused but without any acute distress Denies any chest pain, palpitation, shortness of breath, any abdominal pain, nausea and/or vomiting He has dysphasia both receptive and expressive 04/12/2020 The patient was seen and examined in medical telemetry unit He remains stable and denies any acute symptoms He wants to go home 04/13/2020 The patient was seen and examined in medical telemetry unit He remains stable without any acute symptoms and wants to go home 04/14/2020 The patient was seen and examined in medical unit He has been stable and pleasantly confused Wants to go home 04/15/2020 The patient was seen and examined in medical unit He has been pleasantly confused and denies any other symptoms He is adamant that he will go home 04/16/2020 The patient was seen and examined in medical unit He was noted to be very lethargic this morning and not been talking He has not been moving his right side and did not take his medications and eat his breakfast this morning 04/16/2020: 1146 hrs. Has had a long discussion with 6 of the family members Discussed about progression of stroke and the consequent deterioration of the patient The daughters did not want to have treatment of any sort as per his wish in the past and wanted to have comfort care only for him He did not want to have any feeding tube, antibiotic, any life-sustaining medication but wanted to take medication that will keep him comfortable After confirming again about comfort care the patient was put under comfort care only. All of his essential medications were discontinued. 04/17/2020 The patient was seen and examined in medical telemetry unit He remains semi-responsive otherwise stable Review of Systems Review of Systems: Unobtainable due to reduced consciousness Physical Exam Physical Exam: Remains stable without significant symptoms Constitutional: well developed, well nourished and + ill appearing Eyes: PERRL, conjunctivae normal, anicteric sclerae ENMT: external ear and nose normal, oropharynx normal Neck: trachea midline, no thyromegaly Respiratory: normal respiratory effort; no respiratory distress Auscultation: + diminished lung sounds and + crackles (Bibasilar crackles) Cardiovascular: Rate/Rhythm: + abnormal rate and + abnormal rhythm Heart Sounds: + murmur (2/6 to 3/6 ejection systolic murmur over precordium and aortic area) Gastrointestinal (Abdomen): Inspection/Auscultation: abdomen normal to inspection and normal bowel sounds; abdomen not distended Percussion/Palpation: abdomen soft Neurologic: + confused and + obtunded Speech / Cognition: + abnormal speech (Has dysarthria) Remains semi-responsive Psychiatric: Orientation: alert Insight: + poor insight Judgement: + poor judgement Lymphatic: no cervical or axillary lymphadenopathy
--- NOTE | 2020-04-17 16:51 | Electrocardiogram Report ---
Test Reason : Blood Pressure : / mmHG Vent. Rate : 057 BPM Atrial Rate : 051 BPM P-R Int : 000 ms QRS Dur : 088 ms QT Int : 408 ms P-R-T Axes : 000 016 -81 degrees QTc Int : 397 ms Atrial fibrillation with demand ventricular pacing Abnormal ECG Confirmed by Neto Reid [id number] on 04/17/2020 4:51:07 PM Referred By: REFERRED SELF Confirmed By:Hank Reid
[2020-04-18] MEDS: FLUTICASONE FUROATE 100MCG 14 PUFFS/INHALER INH SCH (07:30)
[2020-04-18] MEDS: ATROPINE SULFATE 1% OP SOLN 2 ML BTL SL PRN ×2 (07:30→11:12)
[2020-04-18] MEDS: LORazepam 1 MG/2 ML VIAL IV PRN (11:07)
--- NOTE | 2020-04-18 14:56 | Palliative Care Progress Note ---
Date of Service April 18, 2020 Assessment & Plan (1) Palliative care encounter: This is an 84-year-old male who presented to the ED from [facility] with chest pain, SOB, and diaphoresis. 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 Troponin was negative, an EKG resulted in rate- controlled A-fib with ST depression and T wave inversions. His initial WBC was 13.97. A abdominal and pelvic CT was obtained and results revealed gallbladder distention. Dr. Jung, from GI, was able to see the patient and discuss all risks, complications, and consequences of not pushing intervention. The family decided that they did not want to pursue any further treatment for this, including diagnostic testing, like an ERCP, and medications. Patient suffered a second CVA on 04/16-is currently unresponsive-nearing end-of-life. -Patient seen and examined in room 277-2. Appears comfortable -Lengthy conversation held with the patients daughterPedro by phone. [phone]. Discussed end-of-life issues, answered her questions and addressed her concerns. Daughter reports that patient's asked where he is daily, does not remember conversations from the day before -discussed how to deal with patient's spouse without causing her distress. -Patient has now declined to end-of-life, patient is not medically stable for transfer home or to a facility to continue hospice care at this time. -Prognosis is hours to days. -PPS: 10% (2) COPD (chronic obstructive pulmonary disease): (3) Aphasia: (4) CVA (cerebral vascular accident): (5) Atrial fibrillation: Admission and Anticipated Discharge Date Admission Date: April 08, 2020 Subjective Patient seen and examined in room 277, no family at bedside. Spoke with patient's daughter, Pedro Montero, , collaborated with patient's nurse on the floor. Patient suffered a second CVA on 04/16-is now unresponsive and has been transitioned to comfort measures only. Patient did require 2 doses of Roxanol, 1 dose of IV morphine and 1 dose of Ativ an in the past 24 hours for comfort. Patient does not respond to voice or touch, urine output was 550 cc yesterday, 350 cc in the past 15 hours. Patient is currently not stable for transfer either home or to a facility for comfort care. Review of Systems Review of Systems: Unobtainable due to reduced consciousness Physical Exam Physical Exam: PE: Patient unresponsive to voice or touch, appears comfortable HEENT: EOMI, dry mucous membranes, did not respond to mouth care Neck: Hyperextended Respiratory: Increased respiratory rate, no excess oral secretions, clear breath sounds CV: Regular rate, pacemaker, no edema Abdomen: Soft, no grimace with palpation Extremities: Left foot slightly dusky in color, warm to touch, no mottling Neuro: Unresponsive to voice or touch PG Care Time/CCT Total # of Minutes Spent Total Time Spent with Patient: Total time spent 45 minutes with greater than 50% of the time spent at bedside, collaborating with patient's nurse as well as collaborating with attending physician. Spoke to patient's daughter at length by phone. Coding Level of Care Code 27341 Subseq Hosp Care Lvl 3 Diagnoses Palliative care encounter Z51.5 COPD (chronic obstructive pulmonary disease) J44.9 Aphasia R47.01 CVA (cerebral vascular accident) I63.9 Atrial fibrillation I48.91 Time Spent (min) 45
--- NOTE | 2020-04-18 15:50 | Hospitalist Progress Note ---
Date of Service April 18, 2020 Assessment & Plan (1) CVA (cerebral vascular accident): Comfort care only Has been on comfort care since yesterday Remains critical but stable We will continue current level of care Condition seems to be worse today with unresponsiveness and acute respiratory distress and mottled appearance of the lower extremities Discussed with the family members for possible imminent demise Other significant medical conditions with hospital progress note as below Left parietal and occipital CVA 03/29/2020 with resultant expressive and receptive aphasia On warfarin and statin Resume statin, coumadin Aspiration, fall precautions Continues to have dysphasia and cognitive impairment from stroke The family members are trying to get 24-hour help at home Patient wants to go home desperately No new and/or worsening symptoms Remains pleasantly confused wants to go home and nobody else Family members have been trying to get more help at home Very lethargic this morning and has not been talking and moving the right side extremities Emergent CT scan without contrast showed equivocal increased cortical density involving the left temporal occipital region and areas of laminar necrosis could not be excluded. An MRI of the brain was suggested After long discussion with the family members and answering all of their questions the patient was put under comfort careonly. Pain and anxiety medications as needed Medications to dry out secretions and oxygen as needed (2) Chest pain: Patient is an 84 yr male with H/O Chronic atrial fibrillation anticoagulated on warfarin, HTN, HLD, sick sinus syndrome status post pacer, COPD, severe aortic stenosis, history of CVA 1998 and a recent suffered a acute left parietal and occipital CVA on 03/29/2020 with resultant expressive and receptive aphasia. He presented to ED secondary to acute onset chest pain, shortness of breath and diaphoresis that occurred at 11 AM. Chest Pain Likely referred pain from Gall bladder Chest Pain resolved while in ED Doubt any ACS Mild Troponin elevation DD:Likely Type II SC Vs ACS Refused ECHO or any other further investigations EKG showed ST-T wave changes Remains free from any chest pain He remains in paced rhythm (3) Elevated LFTs: Possible Acute Cholecystitis/Cholangitis Transaminitis Cholelithiasis/choledocholithiasis --CT ABD:Exam moderately compromised by motion artifact and lack of contrast. Distended gallbladder without pericholecystic infiltration. If suspicion for acute cholecystitis, a a right upper quadrant ultrasound could be obtained. No bowel obstruction. Colonic diverticulosis without evidence for acute diverticulitis. --Liver USD: Gallbladder distention with layering sludge and cholelithiasis. There is gallbladder wall thickening without appreciable pericholecystic fluid or edema. Findings are suspicious for acute cholecystitis. No biliary ductal dilation. There is however an echogenic shadowing focus within the common bile duct suggestive of choledocholithiasis. Initially started treating with IV antibiotics given difficulty with understanding patient's preference and lack of information on living Will Appreciate Surgery /GI Input Ideally needs MRCP with or without ERCP and Cholecystectomy eventually including treatment with IV antibiotics. Despite extensive discussion regarding benefits of treatment and consequences on untreated, patient refused any further investigations or treatment Discussed with patient and his daughter-POA (Pedro) in detail including risks/complications/consequences of being not treated which could even result in deterioration of medical condition/ Daughter confirms patient's wishes not to move forward with further treatment including IV or Oral Antibiotics Living Will on file. Patient's POA prefers no blood draws for lab testing except for PT/INR checks Given Patient/Family wishes---Antibiotics are discontinued Patient/POA---understands and agrees with plan of care Palliative Care is consulted to address goals of care No distress on exam/Denies Pain Appreciate wound care input Tolerating regular diet Has been afebrile, no distress on exam Conservative management as per POA--given comorbidities Please repeat blood test including CBC and comprehensive metabolic panel shows significant improvement Ongoing and/or worsening infection (4) Supratherapeutic INR: INR:4.1>>3.8>>2.9 Monitor INR No bleeding issues Resume Coumadin--1 MG Planned to continue Coumadin on a small dose INR on 04/16/2020-1.4 Dehydration Minimal rise in creatinine Received IV fluids (5) Atrial fibrillation: S/P pacemaker Continue home medications On Coumadin for anticoagulation Will continue for now Remains stable will transfer to medical floor (6) Cardiac pacemaker in situ: Sick sinus syndrome status post pacemaker Pacemaker interrogation ordered (7) HTN (hypertension): Stable Continue amlodipine, losartan Resume HCTZ (8) COPD (chronic obstructive pulmonary disease): No acute exacerbation Continue Trelegy (9) Lung nodule < 6cm on CT: 4mm solid nodule RLL Solitary nodule size: <6 mm * Low risk patients: no follow-up needed * high risk patients: optional CT at 12 months Needs repeat imaging as outpatient if patient agrees (10) DVT prophylaxis: Coumadin is being continued Code Status DNI/DNR Disposition: Palliative care to address goals of care Case management consulted to help with discharge planning Discussed with the daughter and the are trying to get 24-hour help at home Condition got worse since this morning Repeat CT scan did show increased cortical density involving the left temporal occipital region Discussed with the daughter and she will be here soon Admission and Anticipated Discharge Date Admission Date: April 08, 2020 Subjective 04/11/2020 Patient was seen and examined in medical telemetry unit in presence of the granddaughter He remains completely confused but without any acute distress Denies any chest pain, palpitation, shortness of breath, any abdominal pain, nausea and/or vomiting He has dysphasia both receptive and expressive 04/12/2020 The patient was seen and examined in medical telemetry unit He remains stable and denies any acute symptoms He wants to go home 04/13/2020 The patient was seen and examined in medical telemetry unit He remains stable without any acute symptoms and wants to go home 04/14/2020 The patient was seen and examined in medical unit He has been stable and pleasantly confused Wants to go home 04/15/2020 The patient was seen and examined in medical unit He has been pleasantly confused and denies any other symptoms He is adamant that he will go home 04/16/2020 The patient was seen and examined in medical unit He was noted to be very lethargic this morning and not been talking He has not been moving his right side and did not take his medications and eat his breakfast this morning 04/16/2020: 1146 hrs. Has had a long discussion with 6 of the family members Discussed about progression of stroke and the consequent deterioration of the patient The daughters did not want to have treatment of any sort as per his wish in the past and wanted to have comfort care only for him He did not want to have any feeding tube, antibiotic, any life-sustaining medication but wanted to take medication that will keep him comfortable After confirming again about comfort care the patient was put under comfort care only. All of his essential medications were discontinued. 04/17/2020 The patient was seen and examined in medical telemetry unit He remains semi-responsive otherwise stable 04/18/2020 The patient was seen and examined in the medical floor He is more restless today and remains unresponsive Review of Systems Neurologic: Unresponsive Physical Exam Physical Exam: Restless and unresponsive Constitutional: + acute distress ENMT: external ear and nose normal, oropharynx normal Neck: trachea midline, no thyromegaly Respiratory: + respiratory distress and + labored breathing Auscultation: + crackles and + wheezes Cardiovascular: Rate/Rhythm: + abnormal rate and + abnormal rhythm Heart Sounds: + murmur (2/6 to 3/6 ejection systolic murmur over precordium and aortic area) Gastrointestinal (Abdomen): Inspection/Auscultation: abdomen normal to inspection and normal bowel sounds; abdomen not distended Percussion/Palpation: abdomen soft Skin: Mottled appearance of the lower extremities Neurologic: + confused and + obtunded Unresponsive Psychiatric: Orientation: alert Insight: + poor insight Judgement: + poor judgement Lymphatic: no cervical or axillary lymphadenopathy
--- NOTE | 2020-04-18 16:46 | Death Pronouncement Note ---
Date of Service April 18, 2020 Pronouncement Note Admission Date Admission Date: April 08, 2020 Called to pronounce: The patient was seen and examined; No problems and no respiration, pupils widely dilated and nonreactive, no response with any stimuli, no audible breath sounds heart sounds. He has pronounced on at 1540 Hrs. The immediate cause of was 1)acute stroke Other significant causes were-atrial fibrillation, hypertension, COPD Contributing Factors (1) CVA (cerebral vascular accident): (2) Chest pain: (3) Elevated LFTs: (4) Supratherapeutic INR: (5) Atrial fibrillation: (6) Cardiac pacemaker in situ: (7) HTN (hypertension): (8) COPD (chronic obstructive pulmonary disease): (9) Lung nodule < 6cm on CT: (10) DVT prophylaxis: Additional Data Attending physician: Cesar Rodrigez MD
--- NOTE | 2020-04-19 10:41 | Discharge Summary ---
Date of Service April 19, 2020 Admission HPI Per Admitting Provider This is an 84-year-old male who has significant past medical history of chronic atrial fibrillation anticoagulated on warfarin, HTN, HLD, sick sinus syndrome status post pacer, COPD, severe aortic stenosis, history of CVA 1998 and a recent suffered a acute left parietal and occipital CVA on 03/29/2020 with resultant expressive and receptive aphasia. He presents to our ED from acute rehab secondary to chest pain, shortness of breath and diaphoresis. History limited from patient secondary to a aphasia. Most history obtained from [facility] and a daughter. Patient was in therapy this morning around 11 AM when he became diaphoretic, was complaining of chest discomfort, and put a fist up to his chest. Staff became alarmed and they placed him on oxygen. They did do an EKG and alerted EMS. When he got ED he was hemodynamically stable. Initial work-up revealed negative troponin, EKG reading atrial fibrillation with heart rate in the 70s with ST depression and T wave inversions in leads III and V6. His Coumadin influenza was negative. He did have leukocytosis of 13.97k, elevated INR 4.6 and elevated LFTs with total bili 1.9, AST 515, ALT 276 and alk phos 207. Due to aphasia and poor historian patient underwent multiple CT scans. CT abdomen pelvis revealed distention of gallbladder with no pericholecystic fluid but concerning for cholecystitis. Head CT revealed no acute abnormality. Poor prior strokes were noted. Chest CT revealed cardiomegaly without pulmonary edema and a 4 mm solid nodule of the right lower lobe. Patient is recommended for admission for ACS work-up as well as concern for cholecystitis. Admission Exam Per Admitting Provider Physical Exam: Constitutional: Elderly, male, lying in bed, alert with expressive and receptive aphasia, WD/WN, vitals as above, NAD, Head: Normocephalic, Atraumatic Eyes: PERRL, conjunctivae normal, anicteric sclerae ENMT: external ear and nose normal, oropharynx normal Neck: trachea midline, no thyromegaly normal visual inspection Respiratory: normal respiratory effort, lungs clear to auscultation, no wheeze, rales, rhonchi. Normal insp/exp effort, no accessory muscle use Cardiovascular: Regular rate, irregular rhythm, 2/6 NIGEL noted RUSB, no murmur, no edema Vessels: no JVD or carotid bruit Chest: normal inspection of chest, no pain to palpation Abdomen: normal bowel sounds, soft, nontender, no hepatosplenomegaly Musculoskeletal: no cyanosis or clubbing, extremities motor strength 5/5 Skin: no rashes, warm and dry normal turgor Neurologic: + Expressive and receptive aphasia, CN's II-XI intact bilaterally and moves all extremities Psychiatric: Alert to self only, euthymic affect Lymphatic: no cervical or axillary lymphadenopathy : deferred Principal Diagnosis Discharge Exam Constitutional + acute distress Eyes PERRL, conjunctivae normal, anicteric sclerae ENMT external ear and nose normal, oropharynx normal Neck trachea midline, no thyromegaly Respiratory + respiratory distress and + labored breathing Auscultation: + crackles and + wheezes Cardiovascular Rate/Rhythm: + abnormal rate and + abnormal rhythm Heart Sounds: + murmur (2/6 to 3/6 ejection systolic murmur over precordium and aortic area) Gastrointestinal (Abdomen) Inspection/Auscultation: abdomen normal to inspection and normal bowel sounds; abdomen not distended Percussion/Palpation: abdomen soft Neurologic + confused and + obtunded Speech / Cognition: + abnormal speech (Has dysarthria) Psychiatric Orientation: alert Insight: + poor insight Judgement: + poor judgement Lymphatic no cervical or axillary lymphadenopathy Discharge Data Allergies Allergy/AdvReac Type Severity Reaction Status Date / Time Iodinated Contrast Media Allergy Intermediate RASH Verified 04/07/20 12:44 Consultations 04/07/20 14:52 ED Decision to Admit Stat 04/07/20 16:43 Consult Case Management - Discharge Planning Routine 04/07/20 17:01 Consult Palliative Care Routine 04/08/20 07:39 Consult Gastroenterology Routine 04/16/20 11:51 Consult Case Management - Discharge Planning Routine Ordered Studies 04/07/20 12:17 CT head/brain wo con Stat 04/07/20 13:09 CT abd pelvis wo con Stat CT chest wo con Stat 04/08/20 08:54 US liver Urgent 04/16/20 08:31 CT head/brain wo con Urgent Hospital Course (1) CVA (cerebral vascular accident): Comfort care only Has been on comfort care since yesterday Remains critical but stable We will continue current level of care Condition seems to be worse today with unresponsiveness and acute respiratory distress and mottled appearance of the lower extremities Discussed with the family members for possible imminent demise Other significant medical conditions with hospital progress note as below Left parietal and occipital CVA 03/29/2020 with resultant expressive and receptive aphasia On warfarin and statin Resume statin, coumadin Aspiration, fall precautions Continues to have dysphasia and cognitive impairment from stroke The family members are trying to get 24-hour help at home Patient wants to go home desperately No new and/or worsening symptoms Remains pleasantly confused wants to go home and nobody else Family members have been trying to get more help at home Very lethargic this morning and has not been talking and moving the right side extremities Emergent CT scan without contrast showed equivocal increased cortical density involving the left temporal occipital region and areas of laminar necrosis could not be excluded. An MRI of the brain was suggested After long discussion with the family members and answering all of their questions the patient was put under comfort careonly. Pain and anxiety medications as needed Medications to dry out secretions and oxygen as needed (2) Chest pain: Patient is an 84 yr male with H/O Chronic atrial fibrillation anticoagulated on warfarin, HTN, HLD, sick sinus syndrome status post pacer, COPD, severe aortic stenosis, history of CVA 1998 and a recent suffered a acute left parietal and occipital CVA on 03/29/2020 with resultant expressive and receptive aphasia. He presented to ED secondary to acute onset chest pain, shortness of breath and diaphoresis that occurred at 11 AM. Chest Pain Likely referred pain from Gall bladder Chest Pain resolved while in ED Doubt any ACS Mild Troponin elevation DD:Likely Type II CO Vs ACS Refused ECHO or any other further investigations EKG showed ST-T wave changes Remains free from any chest pain He remains in paced rhythm (3) Elevated LFTs: Possible Acute Cholecystitis/Cholangitis Transaminitis Cholelithiasis/choledocholithiasis --CT ABD:Exam moderately compromised by motion artifact and lack of contrast. Distended gallbladder without pericholecystic infiltration. If suspicion for acute cholecystitis, a a right upper quadrant ultrasound could be obtained. No bowel obstruction. Colonic diverticulosis without evidence for acute diverticulitis. --Liver USD: Gallbladder distention with layering sludge and cholelithiasis. There is gallbladder wall thickening without appreciable pericholecystic fluid or edema. Findings are suspicious for acute cholecystitis. No biliary ductal dilation. There is however an echogenic shadowing focus within the common bile duct suggestive of choledocholithiasis. Initially started treating with IV antibiotics given difficulty with unde rstanding patient's preference and lack of information on living Will Appreciate Surgery /GI Input Ideally needs MRCP with or without ERCP and Cholecystectomy eventually including treatment with IV antibiotics. Despite extensive discussion regarding benefits of treatment and consequences on untreated, patient refused any further investigations or treatment Discussed with patient and his daughter-POA (Pedro) in detail including risks/complications/consequences of being not treated which could even result in deterioration of medical condition/ Daughter confirms patient's wishes not to move forward with further treatment including IV or Oral Antibiotics Living Will on file. Patient's POA prefers no blood draws for lab testing except for PT/INR checks Given Patient/Family wishes---Antibiotics are discontinued Patient/POA---understands and agrees with plan of care Palliative Care is consulted to address goals of care No distress on exam/Denies Pain Appreciate wound care input Tolerating regular diet Has been afebrile, no distress on exam Conservative management as per POA--given comorbidities Please repeat blood test including CBC and comprehensive metabolic panel shows significant improvement Ongoing and/or worsening infection (4) Supratherapeutic INR: INR:4.1>>3.8>>2.9 Monitor INR No bleeding issues Resume Coumadin--1 MG Planned to continue Coumadin on a small dose INR on 04/16/2020-1.4 Dehydration Minimal rise in creatinine Received IV fluids (5) Atrial fibrillation: S/P pacemaker Continue home medications On Coumadin for anticoagulation Will continue for now Remains stable will transfer to medical floor (6) Cardiac pacemaker in situ: Sick sinus syndrome status post pacemaker Pacemaker interrogation ordered (7) HTN (hypertension): Stable Continue amlodipine, losartan Resume HCTZ (8) COPD (chronic obstructive pulmonary disease): No acute exacerbation Continue Trelegy (9) Lung nodule < 6cm on CT: 4mm solid nodule RLL Solitary nodule size: <6 mm * Low risk patients: no follow-up needed * high risk patients: optional CT at 12 months Needs repeat imaging as outpatient if patient agrees (10) DVT prophylaxis: Coumadin is being continued Code Status DNI/DNR Disposition: Palliative care to address goals of care Case management consulted to help with discharge planning Discussed with the daughter and the are trying to get 24-hour help at home Condition got worse since this morning Repeat CT scan did show increased cortical density involving the left temporal occipital region Discussed with the daughter and she will be here soon Total Time Total Time Spent Total Time Spent (In Minutes): 20 minutes Total Time Includes: Other Discharge Plan Discharge Items Patient Disposition: Discharge Diagnosis: Acute Stroke Addtl Attending Provider Instructions: Family members informed.
== END 2020-04-18 15:40 | disposition expired | DRG 445 ==
LOC: 2N 12:07 → ED 12:07 → 2N 16:20 → SUATTDRO 04-08 08:07